=== PATIENT | male | born 1945 | race African-American/Black ===

== ENCOUNTER 2016-12-06 12:32 | Inpatient (IN) | payer MEDICARE, MEDICAID ==
[~2016-12-06] VITALS: Ht 188 cm; Wt 59.8 kg
[~2016-12-06 12:32] MED LIST: 1-ME1LIQ PO; ALUM5LIQ PO; BISA10SU8 PR; CIPR500T4 PO; FERR324T4 PO; FLEEENE3 PR; GABA300 PO; GLUC1VIA2 IM; HYDR-3129 PO; LISI20 PO; LOPE2TAB3 PO; MAGN30S PO; MAPA325T6 PO; METF500 PO; MULT-34 PO; NORV10TA PO; NOVOLOGMXP SQ; SENN8.6T8 PO; [UNRECOGNIZED DRUG - CODE] PO
[2016-12-06 12:34] VITALS: BP 109/60; PULSE 102; RESP 17; TEMP 97.7; O2SAT 99
[2016-12-06] MEDS ORDERED: CLINDAMYCIN INJ 300 MG in SODIUM CHLORIDE 0.9% INJ 25 ML IV ONE (13:15)
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
[2016-12-06 13:54] LABS: AUTOMATED NEUTROPHIL # 11.8 TH/MM3 (1.8-7.7); BASOPHIL % 0.2 % (0.0-2.0); EOSINOPHIL % 0.3 % (0.0-4.0); HEMATOCRIT 28.7 % (39.0-51.0); LYMPH % 8.6 % (9.0-44.0); LYMPHOCYTE # 1.2 TH/MM3 (1.0-4.8); MEAN CELL VOLUME 89.8 FL (80.0-100.0); MEAN CORPUSCULAR HEMOGLOBIN 28.5 PG (27.0-34.0); MEAN CORPUSCULAR HGB CONC 31.8 % (32.0-36.0); MONO % 4.5 % (0.0-8.0); NEUT % 86.4 % (16.0-70.0); PLATELET COUNT 289 TH/MM3 (150-450); RED CELL DISTRIBUTION WIDTH 17.1 % (11.6-17.2); WHITE BLOOD COUNT 13.7 TH/MM3 (4.0-11.0)
[2016-12-06 13:55] LABS: HEMO FLAGS AUTO DIFF
[2016-12-06] MEDS ORDERED: CLINDAMYCIN 300 MG/NS 100 ML IV ONE ×2 (14:00)
[2016-12-06 14:01] LABS: APTT (PATIENT) 32.4 SEC (24.3-30.1); PROTHROMBIN TIME - PATIENT 10.8 SEC (9.8-11.6)
[2016-12-06 14:14] LABS: BICARBONATE 25.4 MEQ/L (21.0-32.0); MAGNESIUM 2.2 MG/DL (1.5-2.5); POTASSIUM 3.3 MEQ/L (3.5-5.1)
[2016-12-06 14:28] LABS: BANDS 24 % (0-6); METAMYELOCYTES 1 % (0-1); NEUTROPHIL # MANUAL DIFF 12.2 TH/MM3 (1.8-7.7); PLATELET ESTIMATE SMEAR NORMAL (NORMAL); PLATELET MORPHOLOGY NORMAL (NORMAL); POLYS (SEG NEUTROPHILS) 64 % (16-70); SCAN/DIFF FINAL DIFF MANUAL; WBC DIFF SAMPLE 100
[2016-12-06 15:45] VITALS: BP 148/70; PULSE 80; RESP 16; O2SAT 99
--- NOTE | 2016-12-06 16:05 | RADRPT ---
EXAM DATE/TIME: 12/06/2016 15:33 [facility] COMPARISON: No previous studies available for comparison. INDICATIONS : Lower leg pain. MEDICAL HISTORY : Osteomyelitis. SURGICAL HISTORY : Amputation to lower right leg. ENCOUNTER: Initial ACUITY: 1 day PAIN SCORE: 0/10 LOCATION: Left foot FINDINGS: Three view examination of the left foot demonstrates no soft tissue swelling, dislocation, or fractur e. The tarsal bones appear intact. The interphalangeal and metatarsophalangeal joints are intact. The calcaneus is intact. Bony mineralization is normal. CONCLUSION: 1. No acute findings. 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 Leo Warner MD on December 06, 2016 at 15:54 Board Certified Radiologist. This report was verified electronically.
--- NOTE | 2016-12-06 16:08 | RADRPT ---
EXAM DATE/TIME: 12/06/2016 15:35 [facility] COMPARISON: No previous studies available for comparison. INDICATIONS : Lower leg pain. MEDICAL HISTORY : None. SURGICAL HISTORY : None. ENCOUNTER: Initial ACUITY: 1 day PAIN SCORE: 0/10 LOCATION: Left leg FINDINGS: Two view examination of the left tibia demonstrates no evidence of fracture or dislocation. Bony min eralization is normal. Hypertrophic bony changes noted around the posterior knee at the distal femur and proximal fibula. Vascular calcifications in the popliteal artery. CONCLUSION: 1. No acute bony abnormalities. Hypertrophic bony changes around the posterior femur and proximal fib jesi possibly related to remote trauma. Vascular calcifications in the popliteal artery. Leo Warner MD on December 06, 2016 at 16:04 Board Certified Radiologist. This report was verified electronically.
[2016-12-06] MEDS ORDERED: ONDANSETRON HCL 4 MG/2 ML VIAL IVP PRN (16:15)
[2016-12-06] MEDS ORDERED: SODIUM CHLORIDE 0.9% FLUSH 10 ML FLUSH IV FLUSH PRN (16:15)
[2016-12-06] MEDS ORDERED: Vancomycin Consult Pharmacy 1 EA OTHER SCH (16:15)
[2016-12-06] MEDS ORDERED: DEXTROSE 50% IN WATER 50 ML VIAL(D50) IV PUSH PRN (16:15)
[2016-12-06] MEDS ORDERED: ACETAMINOPHEN 325 MG TAB PO PRN (16:15)
[2016-12-06] MEDS ORDERED: NALOXONE HCL 0.4 MG/ML AMP IV PRN (16:15)
[2016-12-06] MEDS ORDERED: GLUCAGON 1 MG/ML VIAL OTHER PRN (16:15)
[2016-12-06] MEDS: HEPARIN SODIUM - SQ 10,000 UNITS/ML VIAL SQ SCH (17:00)
[2016-12-06] MEDS: VANCOMYCIN INJ 1,500 MG in SODIUM CHLORID 0.9% 500 ML INJ 500 ML IV SCH (17:07)
[2016-12-06 17:20] VITALS: BP 143/70; PULSE 86; RESP 18; TEMP 97.6; O2SAT 99
[2016-12-06 17:31] VITALS: PULSE 83
[2016-12-06] MEDS: CLINDAMYCIN INJ 300 MG in SODIUM CHLORIDE 0.9% INJ 100 ML IV SCH ×2 (18:00→23:33)
--- NOTE | 2016-12-06 18:46 | HHI.HP ---
HPI [facility] Primary Care Physician Jonathan Loaiza M.D. Admission Diagnosis left foot and leg infected ulcer, diabetes Diagnoses: Travel History International Travel<30 Days: No Contact w/Intl Traveler <30 Da: No Traveled to Known Affected Are: No History of Present Illness This is a 71-year-old male who was brought into the emergency department at [facility] today for 1517 with left foot ulcer. He is status post right above-knee amputation for similar reason. He is a poor historian. He was seen in room D 38 by the undersigned. He was dropped at the emergency department by his caregiver. He recently was discharged from a local intermediate. It is not entirely clear as to why he was brought in particularly today. He is alert and verbal. Mildly confused. He has a stench of necrotic odor coming from His left foot. The foot was examined by the undersigned with the help of a nurse. There is a large round 6 cm foul-smelling full-thickness ulcer over the dorsum of the left foot relatively medially. The foot itself is warm with slow but present capillary refill. 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 Hard of hearing Peripheral neuropathy Diabetes Peripheral vascular disease seizure disorder, last seizure 15 years ago Hypertension COPD acid reflux Pancreatitis Anxiety Tobacco abuse Alcohol Rectal abscess Past Surgical History Right above-knee amputation Bilateral lower extremity surgery Reported Medications Reported Meds & Active Scripts Active Active Prescriptions or Reported Medications Unobtainable Allergies: Coded Allergies: No Known Allergies (Verified , 12/06/16) Family History Reviewed but not contributory Social History Tobacco abuse, half pack of cigarettes a day, drinks alcohol however the amount is unclear Physical Exam Vital Signs Vital Signs Date Time Temp Pulse Resp B/P Pulse Ox O2 Delivery O2 Flow Rate FiO2 12/06/16 15:45 80 16 148/70 99 Room Air 12/06/16 12:34 97.7 102 17 109/60 99 Physical Exam GENERAL: This is a well-nourished, well-developed patient, in no apparent distress. SKIN: No rashes, ecchymoses or lesions. Cool and dry. HEAD: Atraumatic. Normocephalic. No temporal or scalp tenderness. EYES: Bilateral cataracts, Extraocular motions intact. ENT: Nose without bleeding, purulent drainage or septal hematoma. Throat without erythema, tonsillar hypertrophy or exudate. Uvula midline. Airway patent. NECK: Trachea midline. No JVD or lymphadenopathy. Supple, nontender, no meningeal signs. CARDIOVASCULAR: Regular rate and rhythm without murmurs, gallops, or rubs. RESPIRATORY: Bilateral occasional crackles GASTROINTESTINAL: Abdomen soft, non-tender, nondistended. No hepato-splenomegaly , or palpable masses. No guarding. MUSCULOSKELETAL: Status post right above-knee amputation, the stump looks healthy. There is a large round 6 cm foul-smelling full-thickness ulcer over the dorsum of the left foot relatively medially. The foot itself is warm with slow but present capillary refill. No palpable pulses available in the left foot including pedal pulse and posterior tibial pulse NEUROLOGICAL: Awake and alert. No facial weakness. Normal speech. Laboratory Laboratory Tests Test 12/06/16 13:30 White Blood Count 13.7 Red Blood Count 3.20 Hemoglobin 9.1 Hematocrit 28.7 Mean Corpuscular Volume 89.8 Mean Corpuscular Hemoglobin 28.5 Mean Corpuscular Hemoglobin 31.8 Concent Red Cell Distribution Width 17.1 Platelet Count 289 Mean Platelet Volume 10.4 Neutrophils (%) (Auto) 86.4 Lymphocytes (%) (Auto) 8.6 Monocytes (%) (Auto) 4.5 Eosinophils (%) (Auto) 0.3 Basophils (%) (Auto) 0.2 Neutrophils # (Auto) 11.8 Lymphocytes # (Auto) 1.2 Monocytes # (Auto) 0.6 Eosinophils # (Auto) 0.0 Basophils # (Auto) 0.0 CBC Comment AUTO DIFF Differential Total Cells 100 Counted Neutrophils % (Manual) 64 Band Neutrophils % 24 Lymphocytes % 9 Monocytes % 2 Neutrophils # (Manual) 12.2 Metamyelocytes 1 Differential Comment FINAL DIFF MANUAL Platelet Estimate NORMAL Platelet Morphology Comment NORMAL Red Cell Morphology Comment Prothrombin Time 10.8 Prothromb Time International 1.0 Ratio Activated Partial 32.4 Thromboplast Time Sodium Level 136 Potassium Level 3.3 Chloride Level 101 Carbon Dioxide Level 25.4 Anion Gap 10 Blood Urea Nitrogen 14 Creatinine 0.97 Estimat Glomerular Filtration 92 Rate Random Glucose 111 Calcium Level 9.2 Magnesium Level 2.2 C-Reactive Protein 29.50 Date/Time Procedure Status Source Growth 12/06/16 13:30 Gram Stain - Final Resulted Wound Foot 12/06/16 13:30 Wound Culture Resulted Wound Foot Pending 12/06/16 13:30 Aerobic Blood Culture Received Blood Peripheral Pending 12/06/16 13:30 Anaerobic Blood Culture Received Blood Peripheral Pending Result Diagram: 12/06/16 1330 12/06/16 1330 Assessment and Plan Assessment and Plan Assessment Foul-smelling left lower extremity/left foot 6 cm round ulcer Smaller ulcer over the anterior aspect of the left wu Leukocytosis Anemia Hypokalemia Peripheral arterial disease Diabetes Tobacco abuse Management Admit to [facility] Start vancomycin Clindamycin Received 1 dose of clindamycin in the emergency department Pain control Diabetes control Consult infectious disease Consult podiatry May need evaluation by vascular surgeon as well DVT prophylaxis with low-dose heparin Discussed with emergency physician Discussed with patient Discussed with nurse 45 minutes Kim Noe MD Dec 06, 2016 18:46
--- NOTE | 2016-12-06 19:06 | MB ---
cc: JAYJAY ESPARZA MD DATE OF CONSULTATION 12/06/[address] Noe REASON FOR CONSULTATION Diabetic foot infection. HISTORY OF PRESENT ILLNESS This is a 71-year-old black male who was brought into the emergency department because of a wound of his left foot. The patient was brought in by his family caregiver. The patient is legally blind. He is unable to give any meaningful information. The caregiver did not await the patient to be seen in the emergency department and left and therefore we were unable to get any information regarding his condition. The patient tells me that he has had problems with his left foot for approximately 7 months and that his niece's daughter has been taken care of it. He denies fever, chills, nausea or vomiting. He is afebrile. His white blood cell count is elevated and he has left shift. Culture of the wound was taken and is pending. Gram stain showed rare gram-positive cocci in pairs. The patient tells me that he feels hungry. He is pleasant and he is in no acute distress. PAST MEDICAL HISTORY Diabetes mellitus type 2, hypertension, glaucoma, legal blindness, peptic ulcer disease, chronic renal insufficiency, peripheral vascular disease and history of right AKA. ALLERGIES No known drug allergies. MEDICATIONS 1. Vancomycin. 2. Clindamycin. 3. Potassium. SOCIAL HISTORY The patient reportedly smokes cigarettes, half-a-pack a day. Occasional alcohol. No illicit drugs. FAMILY HISTORY Noncontributory. Patient is cared for by his niece's daughter. REVIEW OF SYSTEMS GENERAL: No fever, chills. HEAD, EARS AND EYES, NOSE AND THROAT: No difficulty swallowing or soreness of the throat. The patient is really blind. No pain of the neck or swelling. CARDIOVASCULAR: Denies chest pain. RESPIRATORY: Denies shortness of breath or cough. GASTROINTESTINAL: Denies nausea, vomiting, abdominal pain or diarrhea. GENITOURINARY: Denies urgency, frequency or dysuria. ENDOCRINE: Denies polydipsia or polyuria. HEMATOPOIETIC: Denies easy bruising. No bleeding. MUSCULOSKELETAL: Significant for pain in the left foot and arthritis pains. PSYCHIATRIC: No mood changes or depression. PHYSICAL EXAMINATION GENERAL: This is a pleasant male who is well-nourished and in no acute distress. VITAL SIGNS: Temperature 97.8, BP 148/70, respirations 16, heart rate 80. HEENT: Head atraumatic. Extraocular movements grossly intact. No icterus. Oropharynx moist mucosa. No lesions. NECK: Supple. No adenopathy or swelling. LUNGS: Clear to auscultation with diminished sounds. HEART: Regular S1-S2. No audible murmurs. ABDOMEN: Bowel sounds present, soft, no tenderness appreciated. RECTAL: Not performed. EXTREMITIES: The left foot has an ulceration at the anterior portion of the ankle and the distal tibia which is a more longitudinal extending from the distal tibia and to the dorsum of the foot. There is an open ulceration at the dorsum of the foot with greenish sloth and foul odor. There is slight serous drainage on the dressing. The area at the distal tibia has a shiny area of the skin and pale discoloration but there is no ulceration at that location. The skin of the foot has scaly appearance and is dry. SKIN: No diffuse rash. NEURO: Nonfocal. PSYCHIATRIC: The patient is calm and pleasant and cooperative. LABORATORY DATA WBC 13.7, 24% bands, platelets 289, hemoglobin 9.1, creatinine 0.97, BUN 14, estimated GFR 92. IMPRESSION 1. Diabetic foot infection with ulceration at the left foot. 2. Leukocytosis secondary to infection. Wound culture pending. RECOMMENDATIONS 1. Discontinue vancomycin. 2. Continue clindamycin. 3. Monitor the wound culture. 4. Antibiotic adjustments depending on the culture results. Thank you for this consultation. The patient's progress will be monitored and further recommendations will be given on followup. Jayjay Espraza MD FD/ADELSO /6:30 PM /6:45 PM YANELIS
[2016-12-06 20:00] VITALS: BP 146/67; PULSE 95; RESP 18; TEMP 97.9; O2SAT 100
[2016-12-06] MEDS: SODIUM CHLORIDE 0.9% FLUSH 10 ML FLUSH IV FLUSH SCH (21:00)
[2016-12-06] MEDS: INSULIN ASPART SUPPLEMENTAL SCALE SQ SCH (21:00)
[2016-12-06] MEDS: POTASSIUM CHLORIDE 10 MEQ CONTROLLED RELEASE TAB PO SCH (21:00)
[2016-12-06 23:30] VITALS: PULSE 90
[2016-12-07] VITALS: BP 119/59; PULSE 82; RESP 16; TEMP 98; O2SAT 99
[2016-12-07 04:00] VITALS: BP 119/59; PULSE 83; RESP 17; TEMP 98; O2SAT 100
[2016-12-07] MEDS: HEPARIN SODIUM - SQ 10,000 UNITS/ML VIAL SQ SCH ×2 (05:00→17:00)
[2016-12-07] MEDS: CLINDAMYCIN INJ 300 MG in SODIUM CHLORIDE 0.9% INJ 100 ML IV SCH ×4 (06:00→23:38)
[2016-12-07] MEDS: INSULIN ASPART SUPPLEMENTAL SCALE SQ SCH ×4 (06:11→21:20)
[2016-12-07 07:13] LABS: AUTOMATED NEUTROPHIL # 9.5 TH/MM3 (1.8-7.7); BASOPHIL % 0.4 % (0.0-2.0); EOSINOPHIL % 0.2 % (0.0-4.0); HEMATOCRIT 27.7 % (39.0-51.0); HEMO FLAGS DIFF FINAL; LYMPH % 8.4 % (9.0-44.0); LYMPHOCYTE # 0.9 TH/MM3 (1.0-4.8); MEAN CELL VOLUME 89.1 FL (80.0-100.0); MEAN CORPUSCULAR HEMOGLOBIN 28.1 PG (27.0-34.0); MEAN CORPUSCULAR HGB CONC 31.5 % (32.0-36.0); MONO % 4.9 % (0.0-8.0); NEUT % 86.1 % (16.0-70.0); PLATELET COUNT 257 TH/MM3 (150-450); RED BLOOD COUNT 3.11 MIL/MM3 (4.50-5.90); RED CELL DISTRIBUTION WIDTH 16.9 % (11.6-17.2)
[2016-12-07 07:29] LABS: BICARBONATE 24.6 MEQ/L (21.0-32.0); POTASSIUM 3.5 MEQ/L (3.5-5.1)
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
[2016-12-07 08:04] VITALS: BP 146/72; PULSE 89; RESP 18; TEMP 97.4; O2SAT 100
[2016-12-07] MEDS: SODIUM CHLORIDE 0.9% FLUSH 10 ML FLUSH IV FLUSH SCH ×2 (09:00→21:20)
[2016-12-07] MEDS: POTASSIUM CHLORIDE 10 MEQ CONTROLLED RELEASE TAB PO SCH ×2 (09:00→21:20)
--- NOTE | 2016-12-07 11:37 | RADRPT ---
EXAM DATE/TIME: 12/07/2016 00:00 [facility] COMPARISON: No previous studies available for comparison. INDICATIONS : Left foot and leg infection, ulcer/Right AKA TECHNIQUE: Four-cuff ankle and brachial pressures were obtained. Pulse cuff waveform tracings of the ankles were recorded, and ankle-brachial indices were calculated. PRESSURES (mmHg): Brachial (arm): Left 141 Ankle: Left 73 JESSIE: Left 0.52 CONCLUSION: There is vascular occlusive disease to a moderate degree could be further characterized with CT angio graphy and runoffif indicated clinically. [place]ia Meza MD on December 07, 2016 at 11:34 Board Certified Radiologist. This report was verified electronically.
[2016-12-07] MEDS: ACETAMINOPHEN/HYDROcodone 325 MG/5 MG TAB PO PRN ×2 (12:30→18:36)
[2016-12-07] MEDS ORDERED: IOHEXOL 350 MG/ML 10 ML VIAL (for RAD DIAG) IV ONE (14:39)
--- NOTE | 2016-12-07 15:30 | EKG ---
Date Performed: 12/06/2016 Time Performed: 13:13:35 PTAGE: 71 years EKG: Sinus rhythm Left axis deviation. POSSIBLE MYOCARDIAL INFARCTION-INDETERMINATE AGE Nonspecific T wave change. Low limb lead voltage. When compared to previous tracing, T wave changes Anteroseptally are new. ABNORMA L ECG PREVIOUS TRACING : 08/26/2015 18.54 DOCTOR: Kenny Hawthorne Interpretating Date/Time 12/07/2016 15:28:27
[2016-12-07 16:00] VITALS: BP 177/82; PULSE 90; RESP 24; TEMP 97.7; O2SAT 100
[2016-12-07] MEDS: VANCOMYCIN INJ 1,500 MG in SODIUM CHLORID 0.9% 500 ML INJ 500 ML IV SCH (17:00)
[2016-12-07 18:02] VITALS: PULSE 90
--- NOTE | 2016-12-07 18:11 | HHI.PR ---
Subjective Interval History alert, confused, c/o LLE pain, cannot get comfortable Review of Systems Constitutional Constitutional Remarks As above, 10 systems reviewed and otherwise negative but not reliable Vitals/Results Intake & Output 12/06/16 12/06/16 12/07/16 15:00 23:00 07:00 Intake Total 120 ml Balance 120 ml Intake Oral 120 ml # Voids 1 4 Vital Signs Vital Signs Date Time Temp Pulse Resp B/P Pulse Ox O2 Delivery O2 Flow Rate FiO2 12/07/16 18:02 90 12/07/16 16:00 97.7 90 24 177/82 100 12/07/16 08:04 97.4 89 18 146/72 100 12/07/16 04:00 98.0 83 17 119/59 100 12/07/16 00:00 98.0 82 16 119/59 99 12/06/16 23:30 90 12/06/16 20:00 97.9 95 18 146/67 100 CBC/BMP: 12/07/16 0630 12/07/16 0630 Lab Results Laboratory Tests Test 12/07/16 06:30 White Blood Count 11.0 TH/MM3 Red Blood Count 3.11 MIL/MM3 Hemoglobin 8.7 GM/DL Hematocrit 27.7 % Mean Corpuscular Volume 89.1 FL Mean Corpuscular Hemoglobin 28.1 PG Mean Corpuscular Hemoglobin 31.5 % Concent Red Cell Distribution Width 16.9 % Platelet Count 257 TH/MM3 Mean Platelet Volume 10.2 FL Neutrophils (%) (Auto) 86.1 % Lymphocytes (%) (Auto) 8.4 % Monocytes (%) (Auto) 4.9 % Eosinophils (%) (Auto) 0.2 % Basophils (%) (Auto) 0.4 % Neutrophils # (Auto) 9.5 TH/MM3 Lymphocytes # (Auto) 0.9 TH/MM3 Monocytes # (Auto) 0.5 TH/MM3 Eosinophils # (Auto) 0.0 TH/MM3 Basophils # (Auto) 0.0 TH/MM3 CBC Comment DIFF FINAL Differential Comment Sodium Level 137 MEQ/L Potassium Level 3.5 MEQ/L Chloride Level 103 MEQ/L Carbon Dioxide Level 24.6 MEQ/L Anion Gap 9 MEQ/L Blood Urea Nitrogen 10 MG/DL Creatinine 0.72 MG/DL Estimat Glomerular Filtration 130 ML/MIN Rate Random Glucose 106 MG/DL Calcium Level 9.0 MG/DL Physical Exam General General Appearance: Well Developed, Anxious Eyes Eye Exam: Sclera White Ears & Nose Ears & Nose Exam: Nasal Mucosa [place] Throat Throat Exam: Oral Mucosa [place] & Moist Neck Neck Exam: Trachea Midline Pulmonary Resp Exam: Breath Sounds Equal Cardiology CV Exam: Normal Sinus Rhythm Gastrointestinal/Abdomen GI Exam: Non-Tender, Bowel Sounds Present Musculoskeletal MS Remarks Right above-knee amputation Left lower extremity with an ulcer on the dorsum of the left foot also smaller ulcer on the anterior left chin Integumentary Skin Exam: Warm Neurologic Neuro Exam: Awake Neuro Remarks cONFUSED VTE Prophylaxis VTE Prophylaxis Meds: Heparin Assessment/Plan Assessment/Plan Assessment Foul-smelling left lower extremity/left foot 6 cm round ulcer Smaller ulcer over the anterior aspect of the left wu Leukocytosis Anemia Hypokalemia Peripheral arterial disease Diabetes Tobacco abuse Management Clindamycin intravenously Wound care Pain control Diabetes control infectious disease and podiatry following MRI and CT angiogram with runoff ordered May need evaluation by vascular surgeon as well DVT prophylaxis with low-dose heparin Discussed with patient Discussed with nurse 45 minutes Discussed Condition with: Patient Kim Noe MD Dec 07, 2016 18:11
[2016-12-07 20:00] VITALS: BP 132/71; PULSE 93; RESP 24; TEMP 97.4; O2SAT 99
[2016-12-07] MEDS ORDERED: LORazepam 2 MG/ML VIAL IV PRN (20:45)
[2016-12-08] VITALS: BP 133/74; PULSE 87; RESP 18; TEMP 98.8; O2SAT 100
[2016-12-08 04:00] VITALS: BP 151/89; PULSE 97; RESP 20; TEMP 98.4; O2SAT 100
[2016-12-08] MEDS: HEPARIN SODIUM - SQ 10,000 UNITS/ML VIAL SQ SCH ×2 (05:39→16:59)
[2016-12-08] MEDS: CLINDAMYCIN INJ 300 MG in SODIUM CHLORIDE 0.9% INJ 100 ML IV SCH ×4 (05:40→23:22)
[2016-12-08] MEDS: INSULIN ASPART SUPPLEMENTAL SCALE SQ SCH ×4 (05:41→20:57)
[2016-12-08 08:00] VITALS: BP 140/65; PULSE 91; RESP 20; TEMP 98.6; O2SAT 100
[2016-12-08] MEDS: POTASSIUM CHLORIDE 10 MEQ CONTROLLED RELEASE TAB PO SCH ×2 (09:19→20:55)
[2016-12-08] MEDS: SODIUM CHLORIDE 0.9% FLUSH 10 ML FLUSH IV FLUSH SCH ×2 (09:23→20:56)
--- NOTE | 2016-12-08 09:34 | RADRPT ---
EXAM DATE/TIME: 12/07/2016 14:24 [facility] COMPARISON: CTA RUNOFF W 3D RECON, November 09, 2014, 9:13. INDICATIONS : Left foot and leg ulcers. IV CONTRAST: 100 cc Omnipaque 350 (iohexol) IV RADIATION DOSE: 2.11 CTDIvol (mGy) MEDICAL HISTORY : Diabetes mellitus type 2. Hypertension. Cardiovascular disease SURGICAL HISTORY : Right above-knee amputation. ENCOUNTER: Initial ACUITY: 1 week PAIN SCALE: 6/10 LOCATION: Left lower extremity. TECHNIQUE: Volumetric scanning was performed using a multi-row detector CT scanner. The data was post processed with a variety of visualization algorithms including full volume maximum intensity projection, multi -planar sliding thin slab reformation, curved planar reformation, and surface rendering techniques. Using automated exposure control and adjustment of the mA and/or kV according to patient size, radiat ion dose was kept as low as reasonably achievable to obtain optimal diagnostic quality images. FINDINGS: Severe calcific atherosclerotic vascular disease remains evident. There is eccentric calcified plaque of the infrarenal abdominal aorta without evidence of aneurysmal enlargement or significant stenosis. Celiac and superior mesenteric artery to be widely patent. Mild stenosis is seen at the origin of the right renal artery. There is moderate stenosis at the orig in the left renal artery measuring 50-60%. Calcified and noncalcified plaque is present throughout the right iliac system. There is evidence of moderate stenosis involving the external iliac artery. The external and common femoral artery provide flow to the profunda femoris. The mentasta right SFA is completely occluded. Patient is status post ab [id number] amputation. Calcified plaque is present throughout the left iliac system. There is no evidence of focal stenosis. The left SFA is patent however high grade stenotic lesions are seen at its origin in its midsection a nd at the adductor canal. Severe steno-occlusive disease is identified in the left popliteal artery. Calcified plaque is causin g segmental stenosis followed by a short segmental occlusion. 2 vessel runoff to the calf is identifi ed below the occlusion. Nonvascular findings include enlarging pancreatic cysts and cholelithiasis. There are 2 large simple appearing cyst in the tail of pancreas measuring 5.9 and 4.5 cm in size. CONCLUSION: Severe atherosclerotic vascular disease. Hemodynamically significant steno-occlusive lesions are noted in the right iliac, left femoral, left popliteal and left infrapopliteal vessels as described. Status post [id number] amputation right lower extremity. Nonvascular findings include enlarging pancreatic cysts and cholelithiasis. Watson Hyde MD on December 08, 2016 at 8:23 Board Certified Radiologist. This report was verified electronically.
[2016-12-08] MEDS ORDERED: GADODIAMIDE PF 287 MG/ML 5 ML VIAL (for RAD MRI) IV ONE (11:42)
[2016-12-08 12:00] VITALS: BP 173/86; PULSE 104; RESP 20; TEMP 97.7; O2SAT 100
[2016-12-08] MEDS: ACETAMINOPHEN/HYDROcodone 325 MG/5 MG TAB PO PRN ×2 (12:36→17:00)
--- NOTE | 2016-12-08 13:05 | RADRPT ---
EXAM DATE/TIME: 12/08/2016 10:49 [facility] COMPARISON: FOOT LEFT COMPLETE ([id number]), December 06, 2016, 15:33. INDICATIONS : Osteomyelitis. Left hind foot infection. CONTRAST: 12 cc Omniscan (gadodiamide) IV MEDICAL HISTORY : Diabetes mellitus type 2. Neuropathy. SURGICAL HISTORY : Right above knee amputation. ENCOUNTER: Initial ACUITY: 1 day PAIN SCORE: 0/10 LOCATION: Left foot. TECHNIQUE: Multiplanar, multisequence MRI examination was performed without contrast and after the intravenous a dministration of gadolinium. FINDINGS: There is subcutaneous edema with some thickening of the skin at the level of the medial talonavi cular joint. The marrow appears intact without evidence for osteomyelitis. The visualized muscular an d tendinous structures appear intact. CONCLUSION: There is subcutaneous edema may be focal ulceration as above without signs of osteomyelitis. [place] Meza MD on December 08, 2016 at 12:48 Board Certified Radiologist. This report was verified electronically.
--- NOTE | 2016-12-08 15:27 | HHI.IDPN ---
Note Infectious Disease Note Patient says he feels okay. Says he has pain in the left foot off and on. Afebrile. No other complaints. Wound culture has group D enterococcus. PAST MEDICAL HISTORY Diabetes mellitus type 2, hypertension, glaucoma, legal blindness, peptic ulcer disease, chronic renal insufficiency, peripheral vascular disease and history of right AKA. ALLERGIES No known drug allergies. MEDICATIONS Current Medications Medications (Trade) Dose Ordered Sig/Guevara Route PRN Reason Start Time Stop Time Status Last Admin Dose Admin Sodium Chloride (NS Flush) 2 ml UNSCH PRN IV FLUSH FLUSH AFTER USING IV ACCESS 12/06/16 16:15 Sodium Chloride (NS Flush) 2 ml BID IV FLUSH 12/06/16 21:00 12/08/16 09:23 Acetaminophen (Tylenol) 650 mg Q4H PRN PO TEMP > 100.4 12/06/16 16:15 12/07/16 08:00 Ondansetron HCl (Zofran Inj) 4 mg Q6H PRN IVP NAUSEA OR VOMITING 12/06/16 16:15 Heparin Sodium (Porcine) (Heparin Inj) 5,000 units Q12H SQ 12/06/16 17:00 12/08/16 05:39 Naloxone HCl 0.4 mg 0.4 mg UNSCH PRN IV SEE LABEL COMMENTS 12/06/16 16:15 Clindamycin Phosphate/Sodium Chloride (Cleocin Inj/NS Inj) 102 ml @ 204 mls/hr Q6HR IV 12/06/16 18:00 12/08/16 12:25 Dextrose (D50w (Vial) Inj) 25 ml UNSCH PRN IV PUSH HYPOGLYCEMIA-SEE COMMENTS 12/06/16 16:15 Glucagon (Glucagon Inj) 1 mg UNSCH PRN OTHER HYPOGLYCEMIA-SEE COMMENTS 12/06/16 16:15 Acetaminophen/ Hydrocodone Bitart (Elton 5-325 Mg) 1 tab Q4H PRN PO PAIN SCALE 3 TO 10 12/06/16 16:15 12/08/16 12:36 Potassium Chloride (KCl) 30 meq Q12HR PO 12/06/16 21:00 12/08/16 09:19 Miscellaneous Information SPECIFIC LAB TO BE SHANNAN... ONCE ONCE .XX 12/09/16 16:45 12/09/16 16:46 SOCIAL HISTORY The patient reportedly smokes cigarettes, half-a-pack a day. Occasional alcohol. No illicit drugs. FAMILY HISTORY Noncontributory. Patient is cared for by his niece's daughter. OBJECTIVE: Vital Signs Date Time Temp Pulse Resp B/P Pulse Ox O2 Delivery O2 Flow Rate FiO2 12/08/16 12:00 97.7 104 20 173/86 100 12/08/16 08:00 98.6 91 20 140/65 100 12/08/16 04:00 98.4 97 20 151/89 100 12/08/16 00:00 98.8 87 18 133/74 100 12/07/16 20:00 97.4 93 24 132/71 99 12/07/16 18:02 90 12/07/16 16:00 97.7 90 24 177/82 100 12/07/16 12/07/16 12/08/16 15:00 23:00 07:00 Intake Total 867 ml 324 ml Balance 867 ml 324 ml Intake Oral 240 ml 120 ml IV Total 627 ml 204 ml # Voids 2 3 # Bowel Movements 0 0 Laboratory Tests Test 12/07/16 06:30 White Blood Count 11.0 TH/MM3 Red Blood Count 3.11 MIL/MM3 Hemoglobin 8.7 GM/DL Hematocrit 27.7 % Mean Corpuscular Volume 89.1 FL Mean Corpuscular Hemoglobin 28.1 PG Mean Corpuscular Hemoglobin 31.5 % Concent Red Cell Distribution Width 16.9 % Platelet Count 257 TH/MM3 Mean Platelet Volume 10.2 FL Neutrophils (%) (Auto) 86.1 % Lymphocytes (%) (Auto) 8.4 % Monocytes (%) (Auto) 4.9 % Eosinophils (%) (Auto) 0.2 % Basophils (%) (Auto) 0.4 % Neutrophils # (Auto) 9.5 TH/MM3 Lymphocytes # (Auto) 0.9 TH/MM3 Monocytes # (Auto) 0.5 TH/MM3 Eosinophils # (Auto) 0.0 TH/MM3 Basophils # (Auto) 0.0 TH/MM3 CBC Comment DIFF FINAL Differential Comment Laboratory Tests Test 12/07/16 06:30 Sodium Level 137 MEQ/L Potassium Level 3.5 MEQ/L Chloride Level 103 MEQ/L Carbon Dioxide Level 24.6 MEQ/L Anion Gap 9 MEQ/L Blood Urea Nitrogen 10 MG/DL Creatinine 0.72 MG/DL Estimat Glomerular Filtration 130 ML/MIN Rate Random Glucose 106 MG/DL Calcium Level 9.0 MG/DL Microbiology Date/Time Procedure Status Source Growth 12/06/16 13:25 Aerobic Blood Culture - Preliminary Resulted Blood Peripheral NO GROWTH IN 2 DAYS 12/06/16 13:25 Anaerobic Blood Culture - Preliminary Resulted Blood Peripheral NO GROWTH IN 2 DAYS 12/06/16 13:30 Aerobic Blood Culture - Preliminary Resulted Blood Peripheral NO GROWTH IN 2 DAYS 12/06/16 13:30 Anaerobic Blood Culture - Preliminary Resulted Blood Peripheral NO GROWTH IN 2 DAYS 12/06/16 13:30 Gram Stain - Final Resulted Wound Foot 12/06/16 13:30 Wound Culture - Preliminary Resulted Group D Enterococcus PHYSICAL EXAMINATION GENERAL: No acute distress. HEENT: No icterus. Oropharynx moist mucosa. No lesions. NECK: Supple. No adenopathy or swelling. LUNGS: Clear to auscultation. HEART: Regular S1-S2. No audible murmurs. ABDOMEN: Bowel sounds present, soft, no tenderness. EXTREMITIES: The left foot has an ulceration at the anterior portion of the ankle and the distal tibia which is a more longitudinal extending from the distal tibia and up to the dorsum of the foot. There is an open ulceration at the dorsum of the foot with greenish sloth and foul odor. SKIN: No diffuse rash. NEURO: Nonfocal. PSYCHIATRIC: Calm and pleasant and cooperative. IMPRESSION Diabetic foot infection with ulceration at the left foot. Non healing. Group D enterococcus preliminary. Wound culture pending. RECOMMENDATIONS Change Clindamycin to Unasyn. Debridement per podiatry. Josafat Whaley MD Dec 08, 2016 15:27
--- NOTE | 2016-12-08 15:35 | HHI.PR ---
Subjective Subjective Remarks pt. refused MRI yesterday, just got back today, had to have Ativan awake, oriented x 2 ROS limited no pain when asked no fever Review of Systems Constitutional Constitutional Remarks 12 point ROS limited Vitals/Results Intake & Output 12/07/16 12/07/16 12/08/16 15:00 23:00 07:00 Intake Total 867 ml 324 ml Balance 867 ml 324 ml Intake Oral 240 ml 120 ml IV Total 627 ml 204 ml # Voids 2 3 # Bowel Movements 0 0 Vital Signs Vital Signs Date Time Temp Pulse Resp B/P Pulse Ox O2 Delivery O2 Flow Rate FiO2 12/08/16 12:00 97.7 104 20 173/86 100 12/08/16 08:00 98.6 91 20 140/65 100 12/08/16 04:00 98.4 97 20 151/89 100 12/08/16 00:00 98.8 87 18 133/74 100 12/07/16 20:00 97.4 93 24 132/71 99 12/07/16 18:02 90 12/07/16 16:00 97.7 90 24 177/82 100 CBC/BMP: 12/07/16 0630 12/07/16 0630 Physical Exam General General Appearance: Well Developed, No Acute Distress, Anxious Eyes Eye Exam: Pupils Equal, Pupils Reactive, Sclera White Ears & Nose Ears & Nose Exam: Nasal Mucosa [place] Throat Throat Exam: Oral Mucosa [place] & Moist Neck Neck Exam: Trachea Midline Pulmonary Resp Exam: Breath Sounds Equal Cardiology CV Exam: Normal Sinus Rhythm Gastrointestinal/Abdomen GI Exam: Soft, Non-Tender, Bowel Sounds Present, Non-Distended Musculoskeletal MS Remarks Right AKA Integumentary Skin Exam: Warm, Lesion(s) Skin Remarks LEFT FOOT ULCER Extremeties Extremities Exam: Moderate Edema Neurologic Neuro Exam: Awake, Speech Clear, [place] Equal VTE Prophylaxis VTE Prophylaxis Meds: Heparin Assessment/Plan Assessment/Plan Assessment Foul-smelling left lower extremity/left foot 6 cm round ulcer Smaller ulcer over the anterior aspect of the left wu Leukocytosis Anemia Hypokalemia Peripheral arterial disease Diabetes Tobacco abuse Management Continue with Clindamycin intravenously Wound care follow cultures group D enterococcus Pain control Appreciate podiatry input Wound debrided at bedside per podiatry, wound care orders with betadine wet to dry applied and post op shoe ordered WBAT CTA runoff ordered, results noted. Vascular surgery consult pending Right foot MRI -no osteomyelitis ID has been consulted, pending Accu-Cheks before meals and at bedtime with insulin therapy as needed Continue the home meds Anemia, follow H&H closely DVT prophylaxis with low-dose heparin Discussed with Dr. Noe Discussed with patient Discussed with nurse This patient was seen by myself and Dr. Noe, this note is written on his behalf Lorrie Melton Dec 08, 2016 15:35
[2016-12-08 16:00] VITALS: BP 143/73; PULSE 99; RESP 20; TEMP 97.3; O2SAT 100
--- NOTE | 2016-12-08 18:10 | PD.CAR.PN ---
CVT Progress Note Subjective/Hospital Course: Referral received Full consultation and dictation to follow Sarahi Guardado Objective: Vital Signs Date Time Temp Pulse Resp B/P Pulse Ox O2 Delivery O2 Flow Rate FiO2 12/08/16 16:00 97.3 99 20 143/73 100 12/08/16 12:00 97.7 104 20 173/86 100 12/08/16 08:00 98.6 91 20 140/65 100 12/08/16 04:00 98.4 97 20 151/89 100 12/08/16 00:00 98.8 87 18 133/74 100 12/07/16 20:00 97.4 93 24 132/71 99 Result Diagram: 12/07/16 0630 12/07/16 0630 Russ May MD Dec 08, 2016 18:10
[2016-12-08 20:00] VITALS: BP 154/92; PULSE 96; RESP 18; TEMP 97.9; O2SAT 100
[2016-12-09] VITALS: BP 156/82; PULSE 97; RESP 18; TEMP 98.1; O2SAT 99
[2016-12-09 04:00] VITALS: BP 164/92; PULSE 101; RESP 18; TEMP 97.6; O2SAT 96
[2016-12-09] MEDS: CLINDAMYCIN INJ 300 MG in SODIUM CHLORIDE 0.9% INJ 100 ML IV SCH ×2 (05:24→12:13)
[2016-12-09] MEDS: INSULIN ASPART SUPPLEMENTAL SCALE SQ SCH ×4 (05:24→20:45)
[2016-12-09] MEDS: HEPARIN SODIUM - SQ 10,000 UNITS/ML VIAL SQ SCH ×2 (05:24→16:35)
[2016-12-09 08:00] VITALS: BP 131/74; PULSE 99; RESP 18; TEMP 97.5; O2SAT 99
[2016-12-09] MEDS: POTASSIUM CHLORIDE 10 MEQ CONTROLLED RELEASE TAB PO SCH ×2 (08:18→20:44)
[2016-12-09] MEDS: SODIUM CHLORIDE 0.9% FLUSH 10 ML FLUSH IV FLUSH SCH ×2 (08:19→20:47)
[2016-12-09] MEDS: ACETAMINOPHEN/HYDROcodone 325 MG/5 MG TAB PO PRN ×3 (08:19→20:49)
[2016-12-09 08:30] LABS: HEMATOCRIT 33.6 % (39.0-51.0); MEAN CELL VOLUME 90.6 FL (80.0-100.0); MEAN CORPUSCULAR HEMOGLOBIN 28.4 PG (27.0-34.0); MEAN CORPUSCULAR HGB CONC 31.4 % (32.0-36.0); PLATELET COUNT 253 TH/MM3 (150-450); RED BLOOD COUNT 3.71 MIL/MM3 (4.50-5.90); RED CELL DISTRIBUTION WIDTH 17.3 % (11.6-17.2); WHITE BLOOD COUNT 13.4 TH/MM3 (4.0-11.0)
[2016-12-09 08:36] LABS: REVIEW FLAG FINAL
--- NOTE | 2016-12-09 10:54 | HHI.PR ---
Subjective Subjective Remarks Patient alert, H0H Responds to verbal stimuli with simple commands and answers Poor historian Restless in bed at times Afebrile (Caitlin Francis) Review of Systems Constitutional Constitutional: Fatigue, Weakness Constitutional Remarks 10 point ROS done positives noted mild anxiety thrashing around in bed at times , poor historian, left foot wound infection,, leukocytosis reoccurring, anemia, status post debridement per podiatry, mucoid stools, questionable acute on chronic, other systems unremarkable (Caitlin Francis) GI/Abdomen GI/Abdominal Exam: Positive Bowel Movement (clear mucoid incontinent stools, questionable acute or chronic in nature) (Caitlin Francis) Genitourinary Remarks Incontinent (Caitlin Francis) Musculoskeletal MS: Weakness, Discomfort/Pain (left foot, secured with dressing clean dry and intact, special shoe on) (Caitlin Francis) Integumentary Skin: Wounds (left foot, status post debridement, wound infection) (Caitlin Francis) Psychiatric Psychiatric: Normal Mood, Anxiety (in bed thrashing around) (Caitlin Francis) Vitals/Results Intake & Output 12/08/16 12/08/16 12/09/16 15:00 23:00 07:00 Intake Total 344 ml 240 ml 202 ml Balance 344 ml 240 ml 202 ml Intake Oral 240 ml 240 ml 100 ml IV Total 104 ml 102 ml # Voids 3 2 2 # Bowel Movements 2 0 0 Vital Signs Vital Signs Date Time Temp Pulse Resp B/P Pulse Ox O2 Delivery O2 Flow Rate FiO2 12/09/16 08:00 97.5 99 18 131/74 99 12/09/16 04:00 97.6 101 18 164/92 96 12/09/16 00:00 98.1 97 18 156/82 99 12/08/16 20:00 97.9 96 18 154/92 100 12/08/16 16:00 97.3 99 20 143/73 100 12/08/16 12:00 97.7 104 20 173/86 100 (Caitlin Francis) CBC/BMP: 12/09/16 0700 12/07/16 0630 Lab Results Laboratory Tests Test 12/09/16 07:00 White Blood Count 13.4 TH/MM3 Red Blood Count 3.71 MIL/MM3 Hemoglobin 10.5 GM/DL Hematocrit 33.6 % Mean Corpuscular Volume 90.6 FL Mean Corpuscular Hemoglobin 28.4 PG Mean Corpuscular Hemoglobin 31.4 % Concent Red Cell Distribution Width 17.3 % Platelet Count 253 TH/MM3 Mean Platelet Volume 9.6 FL Imaging Remarks Last Impressions Foot MRI 12/08/16 0000 Signed Impressions: Service Date/Time: Thursday, December 08, 2016 10:49 - CONCLUSION: There is subcutaneous edema may be focal ulceration as above without signs of osteomyelitis. [place] Meza MD Aorta w/Runoff CTA 12/07/16 0000 Signed Impressions: Service Date/Time: Wednesday, December 07, 2016 14:24 - CONCLUSION: Severe atherosclerotic vascular disease. Hemodynamically significant steno-occlusive lesions are noted in the right iliac, left femoral, left popliteal and left infrapopliteal vessels as described. Status post [id number] amputation right lower extremity. Nonvascular findings include enlarging pancreatic cysts and cholelithiasis. Watson Hyde MD Tibia/Fibula X-Ray 12/06/16 0000 Signed Impressions: Service Date/Time: Tuesday, December 06, 2016 15:35 - CONCLUSION: 1. No acute bony abnormalities. Hypertrophic bony changes around the posterior femur and proximal fibula possibly related to remote trauma. Vascular calcifications in the popliteal artery. Leo Warner MD Foot X-Ray 12/06/16 0000 Signed Impressions: Service Date/Time: Tuesday, December 06, 2016 15:33 - CONCLUSION: 1. No acute findings. 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 Leo Warner MD Current Medications Active Medications Gadodiamide (Omniscan Pf Inj) 12 ml STK-MED ONCE IV Last administered on t 11:42; Admin Dose 12 ML; Start 12/08/16 at 11:42; Stop 12/08/16 at 11:43; Status DC Miscellaneous Information SPECIFIC LAB TO BE SHANNAN... ONCE ONCE .XX; Start at 16:45; Stop 12/09/16 at 16:46; Status Cancel ([place],Caitlin M. ANIMAL ECOLOGIST) Physical Exam General General Appearance: Well Developed, No Acute Distress, Anxious ([place],Caitlin M. ANIMAL ECOLOGIST) Eyes Eye Exam: Pupils Equal, Pupils Reactive, Sclera White (Caitlin Francis M. ANIMAL ECOLOGIST) Ears & Nose Ears & Nose Exam: Nasal Mucosa [place] ([place]Ryann alfordan M. ANIMAL ECOLOGIST) Throat Throat Exam: Oral Mucosa [place] & Moist (Tito,Caitlin M. ANIMAL ECOLOGIST) Neck Neck Exam: Trachea Midline (Tito,Susan M. ANIMAL ECOLOGIST) Pulmonary Resp Exam: Breath Sounds Equal (Tito,Caitlin M. ANIMAL ECOLOGIST) Cardiology CV Exam: Normal Sinus Rhythm (Tito,Caitlin M. ANIMAL ECOLOGIST) Gastrointestinal/Abdomen GI Exam: Soft, Non-Tender, Bowel Sounds Present, Non-Distended ([place],Caitlin M. ANIMAL ECOLOGIST) Musculoskeletal MS Exam: Joints Intact MS Remarks Left foot wound infection, dressing secure, open shoe on ([place]Caitlin alford M. ANIMAL ECOLOGIST) Integumentary Skin Exam: Warm, Lesion(s) (TitoCaitlin alford M. ANIMAL ECOLOGIST) Extremeties Extremities Exam: Trace Edema, Moderate Edema ([place],Caitlin M. ANIMAL ECOLOGIST) Neurologic Neuro Exam: Awake, Speech Clear, Magazine Publisher Equal ([place],Caitlin M. ANIMAL ECOLOGIST) VTE Prophylaxis VTE Prophylaxis Meds: Heparin ([place],Susan M. ANIMAL ECOLOGIST) Assessment/Plan Assessment/Plan Assessment left lower extremity/left foot 6 cm round ulcer, infection Smaller ulcer over the anterior aspect of the left wu Leukocytosis, resolved, now returned Anemia Hypokalemia Peripheral arterial disease Diabetes Tobacco abuse Management ID consult antibiotics changed to Unasyn, appreciate input Wound care per podiatry, appreciate input follow cultures group D enterococcus Pain control Wound debrided at bedside per podiatry, wound care orders with betadine wet to dry applied and post op shoe ordered WBAT CTA runoff ordered, results noted. Vascular surgery consult Right foot MRI -no osteomyelitis Accu-Cheks before meals and at bedtime with insulin therapy as needed, controlled rate for healing purposes Anemia, follow H&H closely, stable for now, 10.9 Leukocytosis with count increased again at 13.4, antibiotics now Unasyn, will monitor labs DVT prophylaxis with low-dose heparin We'll monitor labs as needed, BMP pending Discussed with Dr. Noe, seen on his behalf Discussed with patient, no family present Discussed with nurse (Caitlin Francis) Assessment/Plan seen, examined by myself, Dr Noe, today Discussed with patient, CTA with runoff results noted, mnx per vascular Unasyn rui bhatia prognosis for LLE. may eventually need an amputation Discussed with mid level provider The exam, history, and the medical decision-making described in the above note were completed with the assistance of the mid-level provider. I reviewed the findings presented. I attest that I had a [id number] encounter with the patient on the same day, and personally performed and documented my assessment and findings in the medical record. (Kim Noe MD) Caitlin Francis Dec 09, 2016 10:54 Kim Noe MD Dec 09, 2016 16:06
[2016-12-09 11:55] LABS: BICARBONATE 22.5 MEQ/L (21.0-32.0); POTASSIUM 4.8 MEQ/L (3.5-5.1)
[2016-12-09 12:00] VITALS: BP 139/64; PULSE 97; RESP 18; TEMP 98.5; O2SAT 99
[2016-12-09 16:00] VITALS: BP 148/79; PULSE 97; RESP 18; TEMP 97.8; O2SAT 97
[2016-12-09] MEDS: NICOTINE 14 MG/24 HR PATCH T-DERMAL SCH (16:35)
[2016-12-09] MEDS ORDERED: PHARMACY ORDERED LAB ONE (16:45)
--- NOTE | 2016-12-09 16:48 | PD.POD ---
Subjective Podiatric Problems Necrotic L foot wound Past Med/Surg/Social History Social History Smoking Status: Former Smoker Objective Vital Signs Vital Signs Date Time Temp Pulse Resp B/P Pulse Ox O2 Delivery O2 Flow Rate FiO2 12/09/16 12:00 98.5 97 18 139/64 99 12/09/16 08:00 97.5 99 18 131/74 99 12/09/16 04:00 97.6 101 18 164/92 96 12/09/16 00:00 98.1 97 18 156/82 99 12/08/16 20:00 97.9 96 18 154/92 100 Coded Allergies: No Known Allergies (Verified , 12/06/16) Physical Exam Remarks bandage intact L foot/ankle Assessment & Plan A/P Necrotic L foot wound Await vascular plan and recommendations. Continue betadine wet to dry dressing L foot/ankle in meantime. Fish Mcneill DPM Dec 09, 2016 16:48
[2016-12-09] MEDS: AMPICILLIN/SULBAC 3 GM/NS 100 ML IV SCH ×4 (16:55→22:39)
[2016-12-09] MEDS ORDERED: AMPICILLIN-SULBACTAM INJ 3 GM VIAL IV SCH (17:00)
--- NOTE | 2016-12-09 18:04 | PD.CAR.PN ---
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 If we can the improve the healing with some conservative measures with debridement of the foot and such as per Dr. Herndon that will be fine but otherwise the only other option is above-knee amputation. Objective: Vital Signs Date Time Temp Pulse Resp B/P Pulse Ox O2 Delivery O2 Flow Rate FiO2 12/09/16 12:00 98.5 97 18 139/64 99 12/09/16 08:00 97.5 99 18 131/74 99 12/09/16 04:00 97.6 101 18 164/92 96 12/09/16 00:00 98.1 97 18 156/82 99 12/08/16 20:00 97.9 96 18 154/92 100 Labs: Laboratory Tests Test 12/09/16 12/09/16 07:00 11:02 White Blood Count 13.4 TH/MM3 (4.0-11.0) Red Blood Count 3.71 MIL/MM3 (4.50-5.90) Hemoglobin 10.5 GM/DL (13.0-17.0) Hematocrit 33.6 % (39.0-51.0) Mean Corpuscular Volume 90.6 FL (80.0-100.0) Mean Corpuscular Hemoglobin 28.4 PG (27.0-34.0) Mean Corpuscular Hemoglobin 31.4 % Concent (32.0-36.0) Red Cell Distribution Width 17.3 % (11.6-17.2) Platelet Count 253 TH/MM3 (150-450) Mean Platelet Volume 9.6 FL (7.0-11.0) Sodium Level 134 MEQ/L (136-145) Potassium Level 4.8 MEQ/L (3.5-5.1) Chloride Level 101 MEQ/L (98-107) Carbon Dioxide Level 22.5 MEQ/L (21.0-32.0) Anion Gap 11 MEQ/L (5-15) Blood Urea Nitrogen 8 MG/DL (7-18) Creatinine 0.76 MG/DL (0.60-1.30) Estimat Glomerular Filtration 122 ML/MIN Rate (>89) Random Glucose 124 MG/DL (74-106) Calcium Level 9.4 MG/DL (8.5-10.1) Result Diagram: 12/09/16 0700 12/09/16 1102 Russ May MD Dec 09, 2016 18:04
[2016-12-09 20:00] VITALS: BP 147/73; PULSE 92; RESP 18; TEMP 97.2; O2SAT 100
[2016-12-09] MEDS: REMOVE OLD PATCH T-DERMAL SCH (20:46)
--- NOTE | 2016-12-09 22:27 | MB ---
cc: RUSS HAIR MD DATE OF CONSULTATION: 12/09/2016 REASON FOR CONSULTATION: Gangrene of the left foot, contracture of the left leg, peripheral vascular disease, dementia. HISTORY OF PRESENT DISEASE: The patient is a 71 year-old gentleman was brought into the emergency department and dropped off by family. Apparently the patient has had left foot wounds that extended up to the leg which they were taking care of at home. Now the patient is in the hospital and question arises what can be done about it surgically. From the record, I am finding out that he had problems and wounds of the foot for about 6 to 7 months, and now it has gotten so bad that the patient had to be admitted. PAST MEDICAL HISTORY: 1. Diabetes mellitus. 2. Hypertension. 3. Peptic ulcer disease. 4. Chronic renal insufficiency. 5. Peripheral vascular disease resulting in right above knee amputation in the past. ALLERGIES: None known. MEDICATIONS: Can be found in the record. SOCIAL HISTORY: The patient apparently smokes half-pack per day and drinks socially. The patient is legally blind. PHYSICAL EXAMINATION: Reveals an unfortunate 71 year-old gentleman appearing older than his actual age. HEENT: Normocephalic, no trauma to the head. Pupils are equal and nonreactive. The patient has glaucoma. Extraocular muscles. The patient is moving eyes but this cannot be tested in the face of near total blindness. CHEST: Bilateral breath sounds, decreased over both lung perla, consistent with COPD. HEART: Regular rhythm. The patient is in sinus rhythm. ABDOMEN: Soft, active bowel sounds. No rebound, no guarding, no masses. EXTREMITIES: The patient has right above-knee amputation. On the left side the patient is contracted in the hip toward the abdomen and the knee, flexed. Patient is unable to extend the leg. On the foot he has ulcerations which extends from the dorsum of the foot to the ankle and up the tibia. There is open ulceration present at the ankle that is draining. There are no dopplerable pulses in the left foot present. IMPRESSION AND RECOMMENDATION: I have reviewed laboratory and diagnostic procedures. This unfortunate gentleman comes in with infection of the foot and gangrene. CTA with runoff reveals severe peripheral vascular disease and foot MRI on the left side reveals subcutaneous edema but not osteomyelitis. At this point there is no vascular construction that can be performed in this gentleman because it is simply contracted in the hip and in the knee. This is a non-reconstructable situation and the patient obviously has been bedridden for a long time. The only option is to do nothing or to do above-knee amputation on this gentleman. To revascularize the patient who is bedridden with contractures is inappropriate and not within standard of care. Therefore, if we can heal this with some local wound care and improve the healing that would be okay, but revascularization here would not be an option. I will continue to follow the patient with you. Thank you very much for referral. Critical care time: 40 minutes. Russ CHASE /5:59 PM /9:23 PM
[2016-12-10] VITALS: BP 129/71; PULSE 87; RESP 16; TEMP 97.6; O2SAT 99
[2016-12-10 04:30] VITALS: BP 139/73; PULSE 85; RESP 18; TEMP 97.6; O2SAT 100
[2016-12-10] MEDS: AMPICILLIN/SULBAC 3 GM/NS 100 ML IV SCH ×6 (05:38→17:22)
[2016-12-10] MEDS: HEPARIN SODIUM - SQ 10,000 UNITS/ML VIAL SQ SCH ×2 (05:40→17:22)
[2016-12-10] MEDS: ACETAMINOPHEN/HYDROcodone 325 MG/5 MG TAB PO PRN ×3 (05:45→17:23)
[2016-12-10] MEDS: INSULIN ASPART SUPPLEMENTAL SCALE SQ SCH ×4 (07:00→20:36)
[2016-12-10 08:00] VITALS: BP 126/69; PULSE 86; RESP 18; TEMP 98.6; O2SAT 100
[2016-12-10] MEDS: SODIUM CHLORIDE 0.9% FLUSH 10 ML FLUSH IV FLUSH SCH ×2 (09:00→20:35)
[2016-12-10] MEDS ORDERED: REMOVE OLD PATCH T-DERMAL SCH (09:00)
[2016-12-10] MEDS: NICOTINE 14 MG/24 HR PATCH T-DERMAL SCH (09:46)
[2016-12-10] MEDS: POTASSIUM CHLORIDE 10 MEQ CONTROLLED RELEASE TAB PO SCH ×2 (09:46→20:34)
--- NOTE | 2016-12-10 10:20 | HHI.PR ---
Subjective Subjective Remarks Patient alert, H0H Responds to verbal stimuli with simple commands and answers Poor historian Restless in bed at times Afebrile Review of Systems Constitutional Constitutional: Fatigue, Weakness Constitutional Remarks 10 point ROS done positives noted mild anxiety thrashing around in bed at times , poor historian, left foot wound infection,, leukocytosis reoccurring, anemia, status post debridement per podiatry, mucoid stools, questionable acute on chronic, other systems unremarkable GI/Abdomen GI/Abdominal Exam: Positive Bowel Movement (clear mucoid incontinent stools, questionable acute or chronic in nature) Genitourinary Remarks Incontinent Musculoskeletal MS: Weakness, Discomfort/Pain (left foot, secured with dressing clean dry and intact, special shoe on) Integumentary Skin: Wounds (left foot, status post debridement, wound infection) Psychiatric Psychiatric: Normal Mood, Anxiety (in bed thrashing around) Vitals/Results Intake & Output 12/09/16 12/09/16 12/10/16 15:00 23:00 07:00 Intake Total 224 ml Balance 224 ml Intake Oral 120 ml IV Total 104 ml # Voids 3 2 # Bowel Movements 1 Vital Signs Vital Signs Date Time Temp Pulse Resp B/P Pulse Ox O2 Delivery O2 Flow Rate FiO2 12/10/16 08:00 98.6 86 18 126/69 100 12/10/16 04:30 97.6 85 18 139/73 100 12/10/16 00:00 97.6 87 16 129/71 99 12/09/16 21:49 18 12/09/16 20:00 97.2 92 18 147/73 100 12/09/16 16:00 97.8 97 18 148/79 97 12/09/16 12:00 98.5 97 18 139/64 99 CBC/BMP: 12/09/16 0700 12/09/16 1102 Lab Results Laboratory Tests Test 12/09/16 11:02 Sodium Level 134 MEQ/L Potassium Level 4.8 MEQ/L Chloride Level 101 MEQ/L Carbon Dioxide Level 22.5 MEQ/L Anion Gap 11 MEQ/L Blood Urea Nitrogen 8 MG/DL Creatinine 0.76 MG/DL Estimat Glomerular Filtration 122 ML/MIN Rate Random Glucose 124 MG/DL Calcium Level 9.4 MG/DL Imaging Remarks Last Impressions Foot MRI 12/08/16 0000 Signed Impressions: Service Date/Time: Thursday, December 08, 2016 10:49 - CONCLUSION: There is subcutaneous edema may be focal ulceration as above without signs of osteomyelitis. [place] Meza MD Aorta w/Runoff CTA 12/07/16 0000 Signed Impressions: Service Date/Time: Wednesday, December 07, 2016 14:24 - CONCLUSION: Severe atherosclerotic vascular disease. Hemodynamically significant steno-occlusive lesions are noted in the right iliac, left femoral, left popliteal and left infrapopliteal vessels as described. Status post [id number] amputation right lower extremity. Nonvascular findings include enlarging pancreatic cysts and cholelithiasis. Watson Hyde MD Tibia/Fibula X-Ray 12/06/16 0000 Signed Impressions: Service Date/Time: Tuesday, December 06, 2016 15:35 - CONCLUSION: 1. No acute bony abnormalities. Hypertrophic bony changes around the posterior femur and proximal fibula possibly related to remote trauma. Vascular calcifications in the popliteal artery. Leo Warner MD Foot X-Ray 12/06/16 0000 Signed Impressions: Service Date/Time: Tuesday, December 06, 2016 15:33 - CONCLUSION: 1. No acute findings. 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 Leo Warner MD Current Medications Active Medications Ampicillin Sodium/ Sulbactam Sodium (Unasyn Inj) 3 gm Q6H IV; Start 12/09/16 at 17:00; Stop 12/09/16 at 17:00; Status DC Ampicillin Sodium/ Sulbactam Sodium/ Sodium Chloride (Unasyn Inj/NS Inj) 100 ml @ 200 mls/hr Q6H IV Last administered on 12/10/16 05:38; Admin Dose 200 MLS/HR ; Start 12/09/16 at 17:00 Miscellaneous Information 1 DAILY T-DERMAL; Start 12/10/16 at 09:00; Stop at 09:00; Status DC Miscellaneous Information SPECIFIC LAB TO BE SHANNAN... ONCE ONCE .XX; Start at 16:45; Stop 12/09/16 at 16:46; Status Cancel Miscellaneous Information 1 1 HS T-DERMAL Last administered on 12/09/16 20:46; Admin Dose 1; Start 12/09/16 at 21:00 Nicotine (Habitrol 14 Mg Patch.24 Hr) 1 patch DAILY T-DERMAL Last administered on 12/10/16t 09:46; Admin Dose 1 PATCH; Start 12/09/16 at 16:15 Physical Exam General General Appearance: Well Developed, No Acute Distress, Anxious Eyes Eye Exam: Pupils Equal, Pupils Reactive, Sclera White Ears & Nose Ears & Nose Exam: Nasal Mucosa [place] Throat Throat Exam: Oral Mucosa [place] & Moist Neck Neck Exam: Trachea Midline Pulmonary Resp Exam: Breath Sounds Equal Cardiology CV Exam: Normal Sinus Rhythm Gastrointestinal/Abdomen GI Exam: Soft, Non-Tender, Bowel Sounds Present, Non-Distended Musculoskeletal MS Exam: Joints Intact MS Remarks Left foot wound infection, dressing secure, open shoe on Integumentary Skin Exam: Warm, Lesion(s) Extremeties Extremities Exam: Trace Edema, Moderate Edema Neurologic Neuro Exam: Awake, Speech Clear, Chief Medical Officer Equal VTE Prophylaxis VTE Prophylaxis Meds: Heparin Assessment/Plan Assessment/Plan Necrotic foot wound ID consult antibiotics changed to Unasyn, appreciate input Wound care per podiatry, appreciate input follow cultures group D enterococcus Pain control Wound debrided at bedside per podiatry, wound care orders with betadine wet to dry applied and post op shoe ordered WBAT CTA runoff ordered, results noted. Vascular surgery consult, appreciate recommendations. Patient is very adamant about no amputation, and wants wound care and medical management as long as he can. For now conservative treatment. Right foot MRI -no osteomyelitis Accu-Cheks before meals and at bedtime with insulin therapy as needed, controlled rate for healing purposes Vital signs reviewed, currently afebrile, normal ranges No new labs today, will review as needed DVT prophylaxis with low-dose heparin Discussed with Dr. Noe, seen on his behalf Discussed with patient, no family present Discussed with Caitlin Sierra Dec 10, 2016 10:20
[2016-12-10 12:00] VITALS: BP 127/69; PULSE 94; RESP 18; TEMP 97.6; O2SAT 100
--- NOTE | 2016-12-10 12:28 | PD.POD ---
Subjective Podiatric Problems Necrotic L foot wound Past Med/Surg/Social History Social History Smoking Status: Former Smoker Objective Vital Signs Vital Signs Date Time Temp Pulse Resp B/P Pulse Ox O2 Delivery O2 Flow Rate FiO2 12/10/16 08:00 98.6 86 18 126/69 100 12/10/16 04:30 97.6 85 18 139/73 100 12/10/16 00:00 97.6 87 16 129/71 99 12/09/16 21:49 18 12/09/16 20:00 97.2 92 18 147/73 100 12/09/16 16:00 97.8 97 18 148/79 97 Coded Allergies: No Known Allergies (Verified , 12/06/16) Physical Exam Remarks unchanged Assessment & Plan A/P Necrotic L foot wound Agree with vascular plan and recommendations. Agree that AKA is inevitable now vs later. Wound healing will not occur. Continue betadine wet to dry dressing L foot/ankle to maintain stability of the wounds unless patient decides to move forward with AKA or it becomes life over limb situation. Fish Mcneill DPM Dec 10, 2016 12:28
[2016-12-10 16:00] VITALS: BP 149/74; PULSE 94; RESP 18; TEMP 97.4; O2SAT 100
[2016-12-10 20:00] VITALS: BP 148/81; PULSE 91; RESP 20; TEMP 97.3; O2SAT 100
[2016-12-10] MEDS: REMOVE OLD PATCH T-DERMAL SCH (20:36)
[2016-12-11] VITALS: BP 166/84; PULSE 92; RESP 18; TEMP 97.4; O2SAT 100
[2016-12-11] MEDS: AMPICILLIN/SULBAC 3 GM/NS 100 ML IV SCH ×10 (01:00→23:26)
[2016-12-11] MEDS: ACETAMINOPHEN/HYDROcodone 325 MG/5 MG TAB PO PRN ×4 (01:00→20:24)
[2016-12-11 04:00] VITALS: BP 132/72; PULSE 88; RESP 16; TEMP 98; O2SAT 100
[2016-12-11] MEDS: HEPARIN SODIUM - SQ 10,000 UNITS/ML VIAL SQ SCH ×2 (05:22→16:15)
[2016-12-11] MEDS: INSULIN ASPART SUPPLEMENTAL SCALE SQ SCH ×4 (06:29→20:29)
[2016-12-11] MEDS: SODIUM CHLORIDE 0.9% FLUSH 10 ML FLUSH IV FLUSH SCH ×2 (08:05→20:25)
[2016-12-11] MEDS: POTASSIUM CHLORIDE 10 MEQ CONTROLLED RELEASE TAB PO SCH ×2 (08:06→20:25)
[2016-12-11] MEDS: NICOTINE 14 MG/24 HR PATCH T-DERMAL SCH (08:08)
[2016-12-11 08:21] VITALS: BP 139/69; PULSE 86; RESP 21; TEMP 98; O2SAT 99
--- NOTE | 2016-12-11 10:30 | HHI.PR ---
Subjective Subjective Remarks awake, oriented x 2 "all you want to do is cut me up" explained that he needs amputation or at risk for sepsis, poss. . states " I have to sometime" no fever left ankle tender to palpation Review of Systems Constitutional Constitutional Remarks 12 point ROS limited Musculoskeletal MS: Discomfort/Pain (left foot, secured with dressing clean dry and intact, special shoe on) Vitals/Results Intake & Output 12/10/16 12/10/16 12/11/16 15:00 23:00 07:00 Intake Total 480 ml 100 ml 240 ml Balance 480 ml 100 ml 240 ml Intake Oral 480 ml 100 ml 240 ml # Voids 4 0 1 # Bowel Movements 1 0 0 Vital Signs Vital Signs Date Time Temp Pulse Resp B/P Pulse Ox O2 Delivery O2 Flow Rate FiO2 12/11/16 08:21 98.0 86 21 139/69 99 12/11/16 04:00 98.0 88 16 132/72 100 12/11/16 02:42 18 12/11/16 00:00 97.4 92 18 166/84 100 12/10/16 20:00 97.3 91 20 148/81 100 12/10/16 16:00 97.4 94 18 149/74 100 12/10/16 12:00 97.6 94 18 127/69 100 CBC/BMP: 12/09/16 0700 12/09/16 1102 Physical Exam General General Appearance: Well Developed, No Acute Distress Eyes Eye Exam: Pupils Equal, Pupils Reactive, Sclera White Ears & Nose Ears & Nose Exam: Nasal Mucosa [place] Throat Throat Exam: Oral Mucosa [place] & Moist Neck Neck Exam: Trachea Midline Pulmonary Resp Exam: Breath Sounds Equal Cardiology CV Exam: Normal Sinus Rhythm Gastrointestinal/Abdomen GI Exam: Soft, Non-Tender, Bowel Sounds Present, Non-Distended Musculoskeletal MS Exam: Joints Intact MS Remarks Right AKA Integumentary Skin Exam: Warm, Lesion(s) Skin Remarks LEFT FOOT ULCER Extremeties Extremities Exam: Trace Edema Neurologic Neuro Exam: Alert, Awake, Speech Clear, Fast Food Supervisor Equal VTE Prophylaxis VTE Prophylaxis Meds: Heparin Assessment/Plan Assessment/Plan Assessment Foul-smelling left lower extremity/left foot 6 cm round ulcer Smaller ulcer over the anterior aspect of the left wu Leukocytosis Anemia Hypokalemia Peripheral arterial disease Diabetes Tobacco abuse Management left foot wound, + enterococcus faecalis ID input appreciated, continue Unasyn Right foot MRI -no osteomyelitis Appreciate podiatry input Wound debrided at bedside per podiatry, wound care orders with betadine wet to dry applied and post op shoe ordered WBAT CTA runoff results noted. Vascular surgery input appreciated, recommends AKA. Pt. adamantly refusing. Continue with medical management. Accu-Cheks before meals and at bedtime with insulin therapy as needed Continue the home meds Anemia, follow H&H closely DVT prophylaxis with low-dose heparin spoke to patient's niece, update given. States pt. has lived with her for more than 5 years. She has POA, asked to bring documents from home. pt. refusing surgery, understands this decision can lead to sepsis poss. . She will talk to daughters about surgery. Discussed with Dr. Noe Discussed with patient Discussed with Fariba, cousin. States she has POA and he has lived with her for many years. Pt. has 7 kids, however not involved in his care. Discussed with nurse This patient was seen by myself and Dr. Noe, this note is written on his behalf Lorrie Melton Dec 11, 2016 10:30
[2016-12-11 12:14] VITALS: BP 152/72; PULSE 87; RESP 20; TEMP 97.4; O2SAT 98
--- NOTE | 2016-12-11 12:44 | PD.CAR.PN ---
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 If we can the improve the healing with some conservative measures with debridement of the foot and such as per Dr. Herndon that will be fine but otherwise the only other option is above-knee amputation. 12/11/16 I discussed with the patient the options I'm not sure if he completely understands but there are no viable options at this time other than not doing anything to the left leg or doing left above-knee amputation. Patient this point refuses amputation and states that we just want to cut on him. [place] best medical opinion this is the appropriate way to go but I'm not here to convince the patient into surgeries only to direct what is the most appropriate care and related this to the patient, If patient changes his mind I'll be available Objective: Vital Signs Date Time Temp Pulse Resp B/P Pulse Ox O2 Delivery O2 Flow Rate FiO2 12/11/16 12:14 97.4 87 20 152/72 98 12/11/16 08:21 98.0 86 21 139/69 99 12/11/16 04:00 98.0 88 16 132/72 100 12/11/16 02:42 18 12/11/16 00:00 97.4 92 18 166/84 100 12/10/16 20:00 97.3 91 20 148/81 100 12/10/16 16:00 97.4 94 18 149/74 100 Result Diagram: 12/09/16 0700 12/09/16 1102 Russ May MD Dec 11, 2016 12:44
[2016-12-11 16:05] VITALS: BP 141/73; PULSE 92; RESP 20; TEMP 97.6; O2SAT 100
[2016-12-11 20:00] VITALS: BP 156/82; PULSE 87; RESP 18; TEMP 97.6; O2SAT 100
[2016-12-11] MEDS: REMOVE OLD PATCH T-DERMAL SCH (20:32)
[2016-12-12] VITALS: BP 132/73; PULSE 92; RESP 16; TEMP 97.4; O2SAT 99
[2016-12-12 04:00] VITALS: BP 143/82; PULSE 89; RESP 16; TEMP 97.7; O2SAT 100
[2016-12-12] MEDS: AMPICILLIN/SULBAC 3 GM/NS 100 ML IV SCH ×8 (04:28→23:40)
[2016-12-12] MEDS: HEPARIN SODIUM - SQ 10,000 UNITS/ML VIAL SQ SCH ×2 (04:28→19:08)
[2016-12-12] MEDS: ACETAMINOPHEN/HYDROcodone 325 MG/5 MG TAB PO PRN ×4 (04:31→19:10)
[2016-12-12] MEDS: INSULIN ASPART SUPPLEMENTAL SCALE SQ SCH ×4 (06:38→21:00)
[2016-12-12 08:00] VITALS: BP 143/79; PULSE 16; RESP 16; TEMP 97.3; O2SAT 99
[2016-12-12] MEDS: SODIUM CHLORIDE 0.9% FLUSH 10 ML FLUSH IV FLUSH SCH ×2 (09:00→21:19)
[2016-12-12] MEDS: POTASSIUM CHLORIDE 10 MEQ CONTROLLED RELEASE TAB PO SCH ×2 (09:30→21:19)
[2016-12-12] MEDS: NICOTINE 14 MG/24 HR PATCH T-DERMAL SCH (09:30)
--- NOTE | 2016-12-12 10:43 | PD.CAR.PN ---
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 If we can the improve the healing with some conservative measures with debridement of the foot and such as per Dr. Herndon that will be fine but otherwise the only other option is above-knee amputation. 12/11/16 I discussed with the patient the options I'm not sure if he completely understands but there are no viable options at this time other than not doing anything to the left leg or doing left above-knee amputation. Patient this point refuses amputation and states that we just want to cut on him. [place] best medical opinion this is the appropriate way to go but I'm not here to convince the patient into surgeries only to direct what is the most appropriate care and related this to the patient, If patient changes his mind I'll be available 12/12/16 Medical attending has a discussed issue with patient as well and he at this point agrees to left above-knee amputation Patient is completely contracted unable to extend the knee or the hip and distal foot is involved in dry gangrene Patient is bedridden and above-knee amputation of the only option We'll proceed with the same tomorrow Objective: Vital Signs Date Time Temp Pulse Resp B/P Pulse Ox O2 Delivery O2 Flow Rate FiO2 12/12/16 08:00 97.3 16 16 143/79 99 12/12/16 05:40 16 12/12/16 04:00 97.7 89 16 143/82 100 12/12/16 00:00 97.4 92 16 132/73 99 12/11/16 20:00 97.6 87 18 156/82 100 12/11/16 16:05 97.6 92 20 141/73 100 12/11/16 12:14 97.4 87 20 152/72 98 Result Diagram: 12/09/16 0700 12/09/16 1102 Russ May MD Dec 12, 2016 10:43
--- NOTE | 2016-12-12 11:30 | HHI.PR ---
Subjective Subjective Remarks awake, oriented x [address] Wylie from palliative care this morning understands he has to have surgery -left AKDina states that he prefers to go home to recuperate but would be amenable for rehab if short term he appears more appropriate, smiling asking that we call his niece to notify her of his decision. Review of Systems Constitutional Constitutional Remarks 12 point ROS limited Musculoskeletal MS: Discomfort/Pain (left foot, secured with dressing clean dry and intact, special shoe on) Vitals/Results Intake & Output 12/11/16 12/11/16 12/12/16 15:00 23:00 07:00 Intake Total 360 ml 120 ml 480 ml Balance 360 ml 120 ml 480 ml Intake Oral 360 ml 120 ml 480 ml # Voids 2 1 3 # Bowel Movements 0 0 0 Vital Signs Vital Signs Date Time Temp Pulse Resp B/P Pulse Ox O2 Delivery O2 Flow Rate FiO2 12/12/16 08:00 97.3 16 16 143/79 99 12/12/16 05:40 16 12/12/16 04:00 97.7 89 16 143/82 100 12/12/16 00:00 97.4 92 16 132/73 99 12/11/16 20:00 97.6 87 18 156/82 100 12/11/16 16:05 97.6 92 20 141/73 100 12/11/16 12:14 97.4 87 20 152/72 98 CBC/BMP: 12/09/16 0700 12/09/16 1102 Lab Results Laboratory Tests Test 12/11/16 13:35 Lactic Acid Level 1.2 mmol/L Physical Exam General General Appearance: Well Developed, No Acute Distress Eyes Eye Exam: Pupils Equal, Pupils Reactive, Sclera White Ears & Nose Ears & Nose Exam: Nasal Mucosa [place] Throat Throat Exam: Oral Mucosa [place] & Moist Neck Neck Exam: Trachea Midline Pulmonary Resp Exam: Breath Sounds Equal Cardiology CV Exam: Normal Sinus Rhythm Gastrointestinal/Abdomen GI Exam: Soft, Non-Tender, Bowel Sounds Present, Non-Distended Musculoskeletal MS Exam: Joints Intact MS Remarks Right AKA Integumentary Skin Exam: Warm, Lesion(s) Skin Remarks LEFT FOOT ULCER Extremeties Extremities Exam: Trace Edema Neurologic Neuro Exam: Alert, Awake, Speech Clear, Circular Knife Machine Cutter Equal VTE Prophylaxis VTE Prophylaxis Meds: Heparin Assessment/Plan Assessment/Plan Assessment Foul-smelling left lower extremity/left foot 6 cm round ulcer Smaller ulcer over the anterior aspect of the left wu Leukocytosis Anemia Hypokalemia Peripheral arterial disease Diabetes Tobacco abuse Management left foot wound, + enterococcus faecalis ID input appreciated, continue Unasyn lactic acid normal Right foot MRI -no osteomyelitis Appreciate podiatry input Wound debrided at bedside per podiatry, wound care orders with betadine wet to dry applied and post op shoe ordered WBAT CTA runoff results noted. Vascular surgery input appreciated, recommends AKA agreeable with surgery, D/W Dr. Guardado. He will schedule for tomorrow to OR for Left AKA on 12/13 Accu-Cheks before meals and at bedtime with insulin therapy as needed Continue the home meds Anemia, follow H&H closely DVT prophylaxis with low-dose heparin appreciate palliative care input, D/W Dr. Wylie, pt. concerned about going to alf after surgery. D/W pt. will make arrangements for home with [facility], canelo has a lot of help at home. However, after talking to him, he seems amenable to short term rehab if needed. We will continue to evaluate and discuss with pt and family. Labs in am Discussed with Dr. Noe Discussed with patient Discussed with nurse This patient was seen by myself and Dr. Noe, this note is written on his behalf Lorrie Melton Dec 12, 2016 11:30
--- NOTE | 2016-12-12 11:52 | PD.CONS ---
Consult Service Palliative Care Consult Requested By Juice BALDWIN . Primary Care Physician Jonathan Loaiza M.D. . Reason for Consultation a. To assist with evaluation and management of symptoms including: Pain b. To assist medical decision maker(s) with: better understanding of current medical conditions; weighing benefits/burdens of medical treatment options; making medical treatment decisions. . HPI History of Present Illness This 71-year-old male, with a past history of diabetes, PVD, and cigarette smoking, was brought to the hospital because of wounds and pain involving the left foot. The patient is status post right AKA because of his PVD and infection, and he has now had these wounds on his left foot for some unknown number of months. He gets intermittent sharp pain in the foot, and also has some occasional back pain. He has not been on scheduled pain medicine. Upon presentation to the emergency department on 12/06/16, findings included: * Moderate pain * Temp 97.7, pulse 80, respirations 16, blood pressure 148/70, oxygen saturation 99% on room air * White count 13.7, hemoglobin 9.1 * Sodium 136, creatinine 0.97 The patient was noted to have a significant wound on the left foot, and there appeared to be some necrosis, odor of necrosis, and likely infection, so he was admitted to the hospital, and antibiotics were initiated. CTA aorta with runoff indicated severe occlusive arterial disease, an MRI of the foot revealed the wound but no osteomyelitis. Podiatry saw the patient and debridement was undertaken. Vascular surgery saw the patient. Ultimately, the patient's medicine physician, ore dressing engineer, and vascular surgeon have all recommended AKA as they do not feel the limb is salvageable. Initially, the patient was reluctant to have any more surgery. Palliative Care was consulted to assist with symptom management, and to enter into discussions with the patient and his healthcare surrogate regarding the current problems, the prognosis, and the benefits and burdens of the various treatment options. . Function/Cognitive Trajectory The patient basically lives a bed and wheelchair existence since his right AKA. He is assisted in taking care of himself by his niece Fariba. . Review of Systems Constitutional: DENIES: Fever, Weight loss Endocrine: DENIES: Polyuria Eyes: COMPLAINS OF: Vision loss, DENIES: Eye inflammation Ears, nose, mouth, throat: DENIES: Epistaxis Respiratory: DENIES: Cough, Shortness of breath Cardiovascular: DENIES: Chest pain, Syncope, Dyspnea on Exertion, Lower Extremity Edema Gastrointestinal: DENIES: Bloody stools, Constipation, Diarrhea, Vomiting Genitourinary: DENIES: Hematuria Musculoskeletal: COMPLAINS OF: Back pain (chronic), DENIES: Joint Swelling Integumentary: DENIES: Rash Hematologic/Lymphatics: DENIES: Bruising Immunologic/Allergic: DENIES: Urticaria Neurologic: DENIES: Localized weakness, Seizures Psychiatric: DENIES: Confusion, Hallucinations, Agitation, Suicidal Ideation, Delusions Past Family Social History Coded Allergies: No Known Allergies (Verified , 12/06/16) Past Medical History * Severe peripheral vascular disease * Left foot gangrene, infection * Non-salvageable left foot/leg * Diabetes * Long-term cigarette smoker * Hypertension * GERD * COPD * Blindness * Anemia * Neuropathy * Remote history of alcohol abuse * Anxiety, intermittent * Remote history of seizures . Past Surgical History * Right AKA * Left leg ORIF * Exploratory laparotomy for perforated viscus * Debridement of left foot/ . Reported Medications He has not been on chronic opiates at home . Current Medications Medications (Trade) Dose Ordered Sig/Guevara Route Start Time Stop Time Status Last Admin (NS Flush) 2 ml UNSCH PRN IV FLUSH 12/06/16 16:15 (NS Flush) 2 ml BID IV FLUSH 12/06/16 21:00 12/12/16 09:00 (Tylenol) 650 mg Q4H PRN PO 12/06/16 16:15 12/07/16 08:00 (Zofran Inj) 4 mg Q6H PRN IVP 12/06/16 16:15 (Heparin Inj) 5,000 units Q12H SQ 12/06/16 17:00 12/12/16 04:28 (Narcan Inj) 0.4 mg UNSCH PRN IV 12/06/16 16:15 (D50w (Vial) Inj) 25 ml UNSCH PRN IV PUSH 12/06/16 16:15 (Glucagon Inj) 1 mg UNSCH PRN OTHER 12/06/16 16:15 (Crosby 5-325 Mg) 1 tab Q4H PRN PO 12/06/16 16:15 12/12/16 09:56 (KCl) 30 meq Q12HR PO 12/06/16 21:00 12/12/16 09:30 (Habitrol 14 Mg Patch.24 Hr) 1 patch DAILY T-DERMAL 12/09/16 16:15 12/12/16 09:30 Miscellaneous Information 1 1 HS T-DERMAL 12/09/16 21:00 12/10/16 20:36 (Unasyn Inj/NS Inj) 100 ml @ 200 mls/hr Q6H IV 12/09/16 17:00 12/12/16 04:28 Family History Positive for heart disease, diabetes, and PVD. . Substance Use Tobacco: Long-term cigarette smoker about one pack per day Alcohol: Remote history of alcohol abuse; now just an occasional beer Prescription med abuse: None Illicits: None . Psychosocial History The patient was born and raised in [place], [place], and moved to this area in 2005. Since his amputation a few years ago, he has lived with his niece Fariba Malave. He was once, . He says he has one son and one daughter; he is in contact occasionally with his daughter, but does not communicate with his son and does not know where his son lives. . Spiritual/Cultural Factors The patient identifies with the Methodist tradition, says spirituality is important for him, has no affiliation with a local Methodist tenriism or clergy, and would like to have a visit from the technical information specialist. . Living Will: Never completed Durable Power of Video Clerk: Completed, but not made available Health Care Surrogate(s): His niece, Fariba Malave . Today's verbally stated goals: The patient's main concern is that he does not want to return to the half-way, and he wants to have the amputation if he can subsequently returned to Fariba's home. He understands that he would likely if he does not have the amputation. He wants to continue aggressive care at least through that time. . Family/friends goals: The patient's niece Fariba supports the decisions of the patient. , Ethical and Legal Issues There are no ethical issues that would impact his care or decision-making at this time. Although some prior notes have indicated "confusion", at the time of my exam, the patient is alert and oriented 4, demonstrating an understanding of his current medical problems and good insight into the consequences of his choices with respect to the proposed amputation. He has capacity for decision-making at this time, and he confirms designation of his niece, as healthcare surrogate if he should lose capacity in the future. . Physical Exam Vital Signs Date Time Temp Pulse Resp B/P Pulse Ox O2 Delivery O2 Flow Rate FiO2 12/12/16 08:00 97.3 16 16 143/79 99 12/12/16 05:40 16 12/12/16 04:00 97.7 89 16 143/82 100 12/12/16 00:00 97.4 92 16 132/73 99 12/11/16 20:00 97.6 87 18 156/82 100 12/11/16 16:05 97.6 92 20 141/73 100 12/11/16 12:14 97.4 87 20 152/72 98 12/11/16 12/12/16 19:00 07:00 Intake Total 360 ml 600 ml Balance 360 ml 600 ml Intake Oral 360 ml 600 ml # Voids 2 4 # Bowel Movements 0 0 Exam CONSTITUTIONAL/GENERAL: This is an adequately nourished patient, in no apparent distress. He is essentially blind TUBES/LINES/DRAINS: Peripheral IV, dressing on left foot/ankle SKIN: No jaundice, rashes, or lesions. Ecchymoses on upper extremities. No wounds seen anteriorly. Skin temperature appropriate. Not diaphoretic. HEAD: Atraumatic. Normocephalic. EYES: Blindness. Fundi not examined. ENT: Hearing grossly normal. Nose without bleeding or purulent drainage. Throat without visible erythema, exudates, masses, or lesions. NECK: Trachea midline. Supple, nontender. No palpable thyroid enlargement or nodularity. CARDIOVASCULAR: Regular rate and rhythm without murmurs, gallops, or rubs. No JVD. No Left foot/ankle pulses RESPIRATORY/CHEST: Symmetric, unlabored respirations. Clear to auscultation. Breath sounds equal bilaterally. No wheezes, rales, or rhonchi. GASTROINTESTINAL: Abdomen soft, non-tender, nondistended. No hepato-splenomegaly , or palpable masses. No guarding. Bowel sounds present. GENITOURINARY: Without palpable bladder distension. MUSCULOSKELETAL: S/P Right AKA, well healed. Dressing on wounds of Left foot/ ankle. LYMPHATICS: No palpable cervical or supraclavicular adenopathy. NEUROLOGICAL: Awake and alert. Motor and sensory grossly within normal limits. Follows commands. Cognitively sharp. Moves all extremities. PSYCHIATRIC: No obvious anxiety/depression. no apparent hallucinations or other psychotic thought process. . Diagnostic Tests Laboratory Laboratory Tests Test 12/09/16 12/11/16 11:02 13:35 Sodium Level 134 MEQ/L (136-145) Potassium Level 4.8 MEQ/L (3.5-5.1) Chloride Level 101 MEQ/L (98-107) Carbon Dioxide Level 22.5 MEQ/L (21.0-32.0) Anion Gap 11 MEQ/L (5-15) Blood Urea Nitrogen 8 MG/DL (7-18) Creatinine 0.76 MG/DL (0.60-1.30) Estimat Glomerular Filtration 122 ML/MIN Rate (>89) Random Glucose 124 MG/DL (74-106) Calcium Level 9.4 MG/DL (8.5-10.1) Lactic Acid Level 1.2 mmol/L (0.4-2.0) Result Diagram: 12/09/16 0700 12/09/16 1102 Imaging Last Impressions Foot MRI 12/08/16 0000 Signed Impressions: Service Date/Time: Thursday, December 08, 2016 10:49 - CONCLUSION: There is subcutaneous edema may be focal ulceration as above without signs of osteomyelitis. KDae Meza MD Aorta w/Runoff CTA 12/07/16 0000 Signed Impressions: Service Date/Time: Wednesday, December 07, 2016 14:24 - CONCLUSION: Severe atherosclerotic vascular disease. Hemodynamically significant steno-occlusive lesions are noted in the right iliac, left femoral, left popliteal and left infrapopliteal vessels as described. Status post [id number] amputation right lower extremity. Nonvascular findings include enlarging pancreatic cysts and cholelithiasis. Watson Hyde MD Tibia/Fibula X-Ray 12/06/16 0000 Signed Impressions: Service Date/Time: Tuesday, December 06, 2016 15:35 - CONCLUSION: 1. No acute bony abnormalities. Hypertrophic bony changes around the posterior femur and proximal fibula possibly related to remote trauma. Vascular calcifications in the popliteal artery. Leo Warner MD Foot X-Ray 12/06/16 0000 Signed Impressions: Service Date/Time: Tuesday, December 06, 2016 15:33 - CONCLUSION: 1. No acute findings. 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 Leo Warner MD Procedures Debridement left foot wound, 12/07/16 . Patient/Family Conference Present at Family Conference: Patient's niece Fariba via telephone . Family Conference Time (mins): 20 Family Conference Location: Telephone Issues Discussed: * Palliative care role, purpose, approach * Additional medical, psychosocial, and spiritual history * Patients general health, functional status, and cognitive changes in the months leading up to the current hospitalization * Patient/family understanding of the current medical problems * Patient/family understanding of prognosis * Patients goals of care as best understood from advance directives and/or conversations and/or values * Current medical treatment options and benefits/burdens of those options * Likely scenarios comparing ongoing aggressive care with a transition to comfort measures only * Questions answered to the best of my ability * Palliative care contact information provided The patient's main concern is that he does not want to return to the half-way, and he wants to have the amputation if he can subsequently returned to Fariba's home. He understands that he would likely if he does not have the amputation. He wants to continue aggressive care at least through that time. . Assessment and Plan Disease Oriented Problem List: (1) severe peripheral vascular disease (2) left foot gangrene, infection (3) nonsalvageable left foot/leg (4) diabetes (5) long-term cigarette smoker (6) anxiety, intermittent (7) blindness (8) hypertension (9) GERD (10) COPD (11) remote history of alcohol abuse (12) neuropathy (13) remote history of seizures (14) anemia Symptom Scale: (1) pain 0-10 Scale: 3 (chronic back pain, and pain of ischemia left foot/leg) (2) anxiety 0-10 Scale: 0 Pertinent Non-Medical Issues Psychosocial: , disabled, lives with his niece. A son and a daughter, but he is not close to them. Spiritual: The patient identifies with the Methodist tradition, says spirituality is important for him, has no affiliation with a local Methodist tenriism or clergy, and would like to have a visit from the technical information specialist. Legal: Although some prior notes have indicated "confusion", at the time of my exam, the patient is alert and oriented 4, demonstrating an understanding of his current medical problems and good insight into the consequences of his choices with respect to the amputation. He has capacity for decision-making at this time, and he confirms designation of his niece, as healthcare surrogate if he should lose capacity in the future. Ethical issues impacting care: Important Contacts Niece/HCS: Fariba Malave [phone] . Prognosis The patient has severe PVD, and undoubtedly has some CAD and perhaps cerebrovascular disease, as well as significant complications of diabetes, but he has had no known cardiac or ONLINE BANKING SPECIALIST events so far. He is not terminal at this time, although certainly at risk for cardiac or stroke events. . Code Status: Full Code Plan * FULL CODE * DECISION-MAKING: Although some prior notes have indicated "confusion", at the time of my exam, the patient is alert and oriented 4, demonstrating an understanding of his current medical problems and good insight into the consequences of his choices with respect to the proposed amputation. He has capacity for decision-making at this time, and he confirms designation of his niece, as healthcare surrogate if he should lose capacity in the future. * GOALS: The patient's main concern is that he does not want to return to the half-way, and he wants to have the amputation if he can subsequently returned to Fariba's home. He understands that he would likely if he does not have the amputation. He wants to continue aggressive care at least through that time. * SYMPTOMS: The patient's pain is not severe at this time, and he does not want to be on scheduled opiates. His anxiety is mild and intermittent and does not require intervention at this time. No specific medication recommendations at this time. * Palliative Care will follow the patient intermittently during this hospitalization, and will be available if needed. . Time Spent Total Floor Time (mins): 76 Face to Face Time (mins): 30 >50% Counseling/Coord of Care: Yes (d/w Juice BALDWIN) Thank you for the opportunity to participate in the care of Mr. Bryant. Attestation To help prompt me to consider important information that might be impacting today's encounter and assessment, information from prior notes written by myself or my colleagues may have been "brought forward" into today's note. My signature on this note, however, is an attestation that I personally performed the exam, history, and/or decision-making noted today, and, unless otherwise indicated, the interactions with patient, family, and staff as well as the review of records all occurred today. I also attest that the listed assessment and stated plan reflect my best clinical judgment today based on the combination of historical information, prior notes, and today's exam/ interactions. When time spent is documented, it refers only to time spent today by the signer, or if indicated, combined time spent today by collaborating physician/nurse practitioner. Darlene Wylie MD Dec 12, 2016 11:52
[2016-12-12 12:00] VITALS: BP 119/69; PULSE 90; RESP 16; TEMP 98.1; O2SAT 100
--- NOTE | 2016-12-12 14:35 | HHI.IDPN ---
Note Infectious Disease Note Patient says he feels okay. Says he has pain in the left foot. Asking for pain med. Afebrile. PAST MEDICAL HISTORY Diabetes mellitus type 2, hypertension, glaucoma, legal blindness, peptic ulcer disease, chronic renal insufficiency, peripheral vascular disease and history of right AKA. ALLERGIES No known drug allergies. ANTIBIOTICS: Unasyn. SOCIAL HISTORY The patient reportedly smokes cigarettes, half-a-pack a day. Occasional alcohol. No illicit drugs. FAMILY HISTORY Noncontributory. Patient is cared for by his niece's daughter. OBJECTIVE: Vital Signs Date Time Temp Pulse Resp B/P Pulse Ox O2 Delivery O2 Flow Rate FiO2 12/12/16 12:00 98.1 90 16 119/69 100 12/12/16 08:00 97.3 16 16 143/79 99 12/12/16 05:40 16 12/12/16 04:00 97.7 89 16 143/82 100 12/12/16 00:00 97.4 92 16 132/73 99 12/11/16 20:00 97.6 87 18 156/82 100 12/11/16 16:05 97.6 92 20 141/73 100 12/11/16 12/11/16 12/12/16 15:00 23:00 07:00 Intake Total 360 ml 120 ml 480 ml Balance 360 ml 120 ml 480 ml Intake Oral 360 ml 120 ml 480 ml # Voids 2 1 3 # Bowel Movements 0 0 0 Laboratory Tests Test 12/11/16 13:35 Lactic Acid Level 1.2 mmol/L Microbiology Date/Time Procedure Status Source Growth 12/06/16 13:25 Aerobic Blood Culture - Preliminary Resulted Blood Peripheral NO GROWTH IN 2 DAYS 12/06/16 13:25 Anaerobic Blood Culture - Preliminary Resulted Blood Peripheral NO GROWTH IN 2 DAYS 12/06/16 13:30 Aerobic Blood Culture - Preliminary Resulted Blood Peripheral NO GROWTH IN 2 DAYS 12/06/16 13:30 Anaerobic Blood Culture - Preliminary Resulted Blood Peripheral NO GROWTH IN 2 DAYS 12/06/16 13:30 Gram Stain - Final Resulted Wound Foot 12/06/16 13:30 Wound Culture - Preliminary Resulted Group D Enterococcus PHYSICAL EXAMINATION GENERAL: No acute distress. HEENT: No icterus. NECK: Supple. No adenopathy or swelling. LUNGS: Clear to auscultation. HEART: Regular S1-S2. No audible murmurs. ABDOMEN: Bowel sounds present, soft, no tenderness. EXTREMITIES: The left foot has an ulceration at the anterior portion of the ankle and the distal tibia same. There is an open ulceration at the dorsum of the foot. SKIN: No diffuse rash. NEURO: Nonfocal. PSYCHIATRIC: Calm and pleasant and cooperative. IMPRESSION Diabetic foot infection with ulceration at the left foot. Non healing. Group D enterococcus. Awaiting decision on surgical procedure. RECOMMENDATIONS Continue Unasyn. If surgery is not performed he will need a course of IV antibiotic. If he has surgical amputation he will be given PO antibiotic post op and consideration made to possibly stop antibiotics. Please call ID patient transportation driver this weekend if input needed. Josafat Whaley MD Dec 12, 2016 14:35 Blood Urea Nitrogen 10 MG/DL Creatinine 0.72 MG/DL Estimat Glomerular Filtration 130 ML/MIN Rate Random Glucose 106 MG/DL Calcium Level 9.0 MG/DL Microbiology Date/Time Procedure Status Source Growth 12/06/16 13:25 Aerobic Blood Culture - Preliminary Resulted Blood Peripheral NO GROWTH IN 2 DAYS 12/06/16 13:25 Anaerobic Blood Culture - Preliminary Resulted Blood Peripheral NO GROWTH IN 2 DAYS 12/06/16 13:30 Aerobic Blood Culture - Preliminary Resulted Blood Peripheral NO GROWTH IN 2 DAYS 12/06/16 13:30 Anaerobic Blood Culture - Preliminary Resulted Blood Peripheral NO GROWTH IN 2 DAYS 12/06/16 13:30 Gram Stain - Final Resulted Wound Foot 12/06/16 13:30 Wound Culture - Preliminary Resulted Group D Enterococcus PHYSICAL EXAMINATION GENERAL: No acute distress. HEENT: No icterus. Oropharynx moist mucosa. No lesions. NECK: Supple. No adenopathy or swelling. LUNGS: Clear to auscultation. HEART: Regular S1-S2. No audible murmurs. ABDOMEN: Bowel sounds present, soft, no tenderness. EXTREMITIES: The left foot has an ulceration at the anterior portion of the ankle and the distal tibia which is a more longitudinal extending from the distal tibia and up to the dorsum of the foot. There is an open ulceration at the dorsum of the foot with greenish sloth and foul odor. SKIN: No diffuse rash. NEURO: Nonfocal. PSYCHIATRIC: Calm and pleasant and cooperative. IMPRESSION Diabetic foot infection with ulceration at the left foot. Non healing. Group D enterococcus preliminary. Wound culture pending. RECOMMENDATIONS Change Clindamycin to Unasyn. Debridement per podiatry. Josafat Whaley MD Dec 12, 2016 14:35
[2016-12-12 16:00] VITALS: BP 158/74; PULSE 95; RESP 16; TEMP 97.2; O2SAT 100
--- NOTE | 2016-12-12 17:27 | PD.VS.CON ---
History of Present Illness Chief Complaint: L LE wound Consult Requested by: Dr. May History of Present Illness 71 yo male, bedridden with Michael MARTINEZ who has a L knee contracture and L foot wound. According to the patient he has L foot wound for months and knee contracture for years, which he attributes to arthritis. Past/Family/Social History Past Medical History DM HTN CRI PAD blindness Past Surgical History R AKA Social History smoker Family History lives with his niece Home Medications Unable to Obtain Active Prescriptions or Reported Meds Coded Allergies: No Known Allergies (Verified , 12/06/16) Review of Systems Eyes: COMPLAINS OF: Vision loss Musculoskeletal: COMPLAINS OF: Joint pain, Stiffness, Joint Swelling Neurologic: COMPLAINS OF: Localized weakness Physical Exam Vitals/I&O Date Time Temp Pulse Resp B/P Pulse Ox O2 Delivery O2 Flow Rate FiO2 12/12/16 16:00 97.2 95 16 158/74 100 12/12/16 12:00 98.1 90 16 119/69 100 12/12/16 08:00 97.3 16 16 143/79 99 12/12/16 05:40 16 12/12/16 04:00 97.7 89 16 143/82 100 12/12/16 00:00 97.4 92 16 132/73 99 12/11/16 20:00 97.6 87 18 156/82 100 12/12/16 12/12/16 12/12/16 07:00 15:00 23:00 Intake Total 480 ml 480 ml Output Total 250 ml Balance 480 ml 230 ml Neuro: alert and conversant HEENT: blind but NC Neck: no JVD Heart: reg rate Lungs: nonlabored Extremities: L knee contracture and wound on LEFT foot Laboratory Tests Test 12/12/16 12:20 Blood Type O NEGATIVE Antibody Screen NEGATIVE Assessment and Plan Plan I agree completely with Dr. May that an AKA is the best option for him. More importantly, the patient agrees and understands the plan. Please call me with any questions. Juice Garay MD FACS septic tank service technician [facility] - Heart and Vascular Surgery at [facility] [phone] Juice Garay MD Dec 12, 2016 17:27
[2016-12-12 20:00] VITALS: BP 134/77; PULSE 87; RESP 16; TEMP 97.4; O2SAT 100
[2016-12-12] MEDS: REMOVE OLD PATCH T-DERMAL SCH (21:00)
[2016-12-13] VITALS: BP 131/65; PULSE 97; RESP 18; TEMP 97.1; O2SAT 100
[2016-12-13] MEDS: ACETAMINOPHEN/HYDROcodone 325 MG/5 MG TAB PO PRN ×3 (00:37→18:00)
[2016-12-13 04:00] VITALS: BP 138/72; PULSE 80; RESP 16; TEMP 97.2; O2SAT 100
[2016-12-13] MEDS: AMPICILLIN/SULBAC 3 GM/NS 100 ML IV SCH ×6 (04:51→18:57)
[2016-12-13] MEDS: HEPARIN SODIUM - SQ 10,000 UNITS/ML VIAL SQ SCH (04:58)
[2016-12-13] MEDS: INSULIN ASPART SUPPLEMENTAL SCALE SQ SCH ×4 (06:24→20:21)
[2016-12-13 07:27] LABS: HEMATOCRIT 27.8 % (39.0-51.0); MEAN CELL VOLUME 86.3 FL (80.0-100.0); MEAN CORPUSCULAR HEMOGLOBIN 29.1 PG (27.0-34.0); MEAN CORPUSCULAR HGB CONC 33.7 % (32.0-36.0); PLATELET COUNT 369 TH/MM3 (150-450); RED BLOOD COUNT 3.22 MIL/MM3 (4.50-5.90); RED CELL DISTRIBUTION WIDTH 16.8 % (11.6-17.2); REVIEW FLAG FINAL; WHITE BLOOD COUNT 11.7 TH/MM3 (4.0-11.0)
[2016-12-13 07:59] LABS: BICARBONATE 28.8 MEQ/L (21.0-32.0); POTASSIUM 4.4 MEQ/L (3.5-5.1)
[2016-12-13 08:00] VITALS: BP 150/74; PULSE 97; RESP 21; TEMP 96.9; O2SAT 96
[2016-12-13] MEDS: POTASSIUM CHLORIDE 10 MEQ CONTROLLED RELEASE TAB PO SCH ×2 (09:26→20:30)
[2016-12-13] MEDS: NICOTINE 14 MG/24 HR PATCH T-DERMAL SCH (09:26)
[2016-12-13] MEDS: SODIUM CHLORIDE 0.9% FLUSH 10 ML FLUSH IV FLUSH SCH ×2 (09:30→20:19)
--- NOTE | 2016-12-13 10:18 | HHI.PR ---
Subjective Subjective Remarks Patient dozing, responds to verbal stimuli H0H Poor historian, answers simple questions appropriately No anxiety noted this morning Afebrile (Caitlin Francis) Interval History Case reviewed, discussed with mid level, right above-knee amputation Surgery today (Kim Noe MD) Review of Systems Constitutional Constitutional Remarks 10 point ROS done positives noted mild anxiety at times, poor historian, left foot wound infection,, leukocytosis reoccurring, anemia, mucoid stools, other systems unremarkable (Caitlin Francis) GI/Abdomen GI/Abdomen Remarks Nothing by mouth today (Caitlin Francis) Genitourinary Remarks Incontinent (Caitlin Francis) Musculoskeletal MS: Discomfort/Pain (left foot, secured with dressing clean dry and intact, special shoe on) (Caitlin Francis) Psychiatric Psychiatric: Normal Mood (Caitlin Francis) Vitals/Results Intake & Output 12/12/16 12/12/16 12/13/16 15:00 23:00 07:00 Intake Total 480 ml 0 ml Output Total 250 ml Balance 230 ml 0 ml Intake Oral 480 ml 0 ml Output Urine Total 250 ml # Voids 2 2 # Bowel Movements 0 Vital Signs Vital Signs Date Time Temp Pulse Resp B/P Pulse Ox O2 Delivery O2 Flow Rate FiO2 12/13/16 08:00 96.9 97 21 150/74 96 12/13/16 05:30 16 12/13/16 04:00 97.2 80 16 138/72 100 12/13/16 00:00 97.1 97 18 131/65 100 12/12/16 20:00 97.4 87 16 134/77 100 12/12/16 16:00 97.2 95 16 158/74 100 12/12/16 12:00 98.1 90 16 119/69 100 (Caitlin Francis) CBC/BMP: 12/13/16 0558 12/13/16 0558 Lab Results Laboratory Tests Test 12/12/16 12/13/16 12:20 05:58 Blood Type O NEGATIVE Antibody Screen NEGATIVE White Blood Count 11.7 TH/MM3 Red Blood Count 3.22 MIL/MM3 Hemoglobin 9.4 GM/DL Hematocrit 27.8 % Mean Corpuscular Volume 86.3 FL Mean Corpuscular Hemoglobin 29.1 PG Mean Corpuscular Hemoglobin 33.7 % Concent Red Cell Distribution Width 16.8 % Platelet Count 369 TH/MM3 Mean Platelet Volume 9.9 FL Sodium Level 138 MEQ/L Potassium Level 4.4 MEQ/L Chloride Level 102 MEQ/L Carbon Dioxide Level 28.8 MEQ/L Anion Gap 7 MEQ/L Blood Urea Nitrogen 10 MG/DL Creatinine 0.89 MG/DL Estimat Glomerular Filtration 102 ML/MIN Rate Random Glucose 138 MG/DL Calcium Level 9.0 MG/DL Imaging Remarks Last Impressions Foot MRI 12/08/16 0000 Signed Impressions: Service Date/Time: Thursday, December 08, 2016 10:49 - CONCLUSION: There is subcutaneous edema may be focal ulceration as above without signs of osteomyelitis. [place] Meza MD Aorta w/Runoff CTA 12/07/16 0000 Signed Impressions: Service Date/Time: Wednesday, December 07, 2016 14:24 - CONCLUSION: Severe atherosclerotic vascular disease. Hemodynamically significant steno-occlusive lesions are noted in the right iliac, left femoral, left popliteal and left infrapopliteal vessels as described. Status post [id number] amputation right lower extremity. Nonvascular findings include enlarging pancreatic cysts and cholelithiasis. Watson Hyde MD Tibia/Fibula X-Ray 12/06/16 0000 Signed Impressions: Service Date/Time: Tuesday, December 06, 2016 15:35 - CONCLUSION: 1. No acute bony abnormalities. Hypertrophic bony changes around the posterior femur and proximal fibula possibly related to remote trauma. Vascular calcifications in the popliteal artery. Leo Warner MD Foot X-Ray 12/06/16 0000 Signed Impressions: Service Date/Time: Tuesday, December 06, 2016 15:33 - CONCLUSION: 1. No acute findings. 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 Leo Warner MD Current Medications Administered Medications Medications (Trade) Dose Ordered Sig/Guevara Route PRN Reason Start Time Stop Time Status Last Admin Dose Admin Sodium Chloride (NS Flush) 2 ml BID IV FLUSH 12/06/16 21:00 12/13/16 09:30 Acetaminophen (Tylenol) 650 mg Q4H PRN PO TEMP > 100.4 4/15/17 16:15 12/07/16 08:00 Heparin Sodium (Porcine) (Heparin Inj) 5,000 units Q12H SQ 12/06/16 17:00 12/12/16 19:08 Acetaminophen/ Hydrocodone Bitart ([place] 5-325 Mg) 1 tab Q4H PRN PO PAIN SCALE 3 TO 10 12/06/16 16:15 12/13/16 04:52 Potassium Chloride (KCl) 30 meq Q12HR PO 12/06/16 21:00 12/13/16 09:26 Nicotine (Habitrol 14 Mg Patch.24 Hr) 1 patch DAILY T-DERMAL 12/09/16 16:15 12/13/16 09:26 Miscellaneous Information 1 1 HS T-DERMAL 12/09/16 21:00 12/12/16 21:00 Ampicillin Sodium/ Sulbactam Sodium/ Sodium Chloride (Unasyn Inj/NS Inj) 100 ml @ 200 mls/hr Q6H IV 12/09/16 17:00 12/13/16 04:51 (Caitlin Francis) Physical Exam General General Appearance: Well Developed, No Acute Distress, Pale (mucous membranes) (Caitlin FrancisP) Eyes Eye Exam: Pupils Equal, Pupils Reactive, Sclera White (Caitlin FrancisP) Ears & Nose Ears & Nose Exam: Nasal Mucosa [place] (Caitlin FrancisP) Throat Throat Exam: Oral Mucosa [place] & Moist (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) Neck Neck Exam: Trachea Midline (Caitlin FrancisP) Pulmonary Resp Exam: Breath Sounds Equal (Caitlin FrancisP) Cardiology CV Exam: Normal Sinus Rhythm (Caitlin FrancisP) Gastrointestinal/Abdomen GI Exam: Soft, Non-Tender, Bowel Sounds Present, Non-Distended (Caitlin FrancisP) Musculoskeletal MS Exam: Joints Intact MS Remarks Left foot wound infection, dressing secure, open shoe on (Caitlin FrancisP) Integumentary Skin Exam: Warm, Lesion(s) (Caitlin FrancisP) Extremeties Extremities Exam: Trace Edema (Caitlin FrancisP) Neurologic Neuro Exam: Alert, Awake, Speech Clear, Plant Custodian Equal (Caitlin Francis) VTE Prophylaxis VTE Prophylaxis Meds: Heparin (Caitlin Francis) Assessment/Plan Assessment/Plan Assessment: Necrotic foot wound Foul-smelling left lower extremity/left foot 6 cm round ulcer Smaller ulcer over the anterior aspect of the left wu Leukocytosis Anemia Hypokalemia, resolved Peripheral arterial disease Diabetes Tobacco abuse Management Vital signs reviewed, labs reviewed Nothing by mouth today, planned for left AKA today left foot wound, + enterococcus faecalis ID input appreciated, continue Unasyn until surgical procedure Appreciate podiatry input CTA runoff results noted. Vascular surgery input appreciated, recommends AKA Accu-Cheks before meals and at bedtime with insulin therapy as needed Anemia, follow H&H closely DVT prophylaxis with low-dose heparin appreciate palliative care input, D/W Dr. Wylie, pt. concerned about going to longterm after surgery. D/W pt. will make arrangements for home with [facility], [place] has a lot of help at home. However, after talking to him, he seems amenable to short term rehab if needed. We will continue to evaluate and discuss with pt and family. Discussed with Dr. Noe, seen on his behalf Discussed with patient Discussed with nurse (Caitlin Francis) Caitlin Francis Dec 13, 2016 10:18 Kim Noe MD Dec 13, 2016 17:18
[2016-12-13 11:23] VITALS: PULSE 79
[2016-12-13] MEDS ORDERED: PROPOFOL 200 MG/20 ML AMP IV ONE (12:00)
[2016-12-13] MEDS ORDERED: PHENYLEPH/NS 1000 MCG/10 ML SYR IV ONE (12:00)
[2016-12-13] MEDS ORDERED: FAMOTIDINE 20 MG/2 ML VIAL IV ONE (12:00)
[2016-12-13] MEDS ORDERED: *RESP: ALBUTEROL 2.5 MG/3 ML NEB (PRN) PERIprocedural Use ONLY NEB ONE (15:22)
[2016-12-13] MEDS ORDERED: MIDAZOLAM HCL 2 MG/2 ML VIAL ONE (15:37)
[2016-12-13 20:00] VITALS: BP 165/86; PULSE 91; RESP 18; TEMP 98.3; O2SAT 98
[2016-12-13] MEDS: REMOVE OLD PATCH T-DERMAL SCH (20:30)
[2016-12-13 22:19] VITALS: O2SAT 98
[2016-12-14] MEDS: AMPICILLIN/SULBAC 3 GM/NS 100 ML IV SCH ×4 (00:15→06:25)
[2016-12-14] MEDS: ACETAMINOPHEN/HYDROcodone 325 MG/5 MG TAB PO PRN ×3 (00:16→20:55)
[2016-12-14 00:23] VITALS: BP 164/84; PULSE 97; RESP 18; TEMP 98.2; O2SAT 100
[2016-12-14 04:00] VITALS: BP 139/84; PULSE 94; RESP 18; TEMP 98; O2SAT 98
[2016-12-14] MEDS: HEPARIN SODIUM - SQ 10,000 UNITS/ML VIAL SQ SCH ×2 (05:00→17:20)
[2016-12-14] MEDS: INSULIN ASPART SUPPLEMENTAL SCALE SQ SCH ×4 (06:33→20:59)
[2016-12-14 08:00] VITALS: BP 136/63; PULSE 92; RESP 16; TEMP 97.6; O2SAT 100
[2016-12-14] MEDS: SODIUM CHLORIDE 0.9% FLUSH 10 ML FLUSH IV FLUSH SCH ×2 (09:00→20:59)
[2016-12-14 09:09] LABS: HEMATOCRIT 28.4 % (39.0-51.0); MEAN CELL VOLUME 88.6 FL (80.0-100.0); MEAN CORPUSCULAR HEMOGLOBIN 28.4 PG (27.0-34.0); PLATELET COUNT 374 TH/MM3 (150-450); RED BLOOD COUNT 3.21 MIL/MM3 (4.50-5.90); RED CELL DISTRIBUTION WIDTH 17.4 % (11.6-17.2); REVIEW FLAG FINAL; WHITE BLOOD COUNT 13.6 TH/MM3 (4.0-11.0)
[2016-12-14] MEDS: NICOTINE 14 MG/24 HR PATCH T-DERMAL SCH (09:12)
[2016-12-14] MEDS: POTASSIUM CHLORIDE 10 MEQ CONTROLLED RELEASE TAB PO SCH ×2 (09:15→20:56)
[2016-12-14 09:35] LABS: BICARBONATE 25.2 MEQ/L (21.0-32.0)
--- NOTE | 2016-12-14 10:34 | HHI.PR ---
Subjective Subjective Remarks Patient dozing, responds to verbal stimuli H0H Poor historian, answers simple questions appropriately Left upper leg elevated, day 1 postop AKA Pain management Afebrile Review of Systems Constitutional Constitutional Remarks 10 point ROS done positives noted mild anxiety at times, poor historian, postop day 1 left AKA, other systems unremarkable GI/Abdomen GI/Abdomen Remarks Nothing by mouth today Genitourinary Remarks Incontinent Musculoskeletal MS: Discomfort/Pain (left foot, secured with dressing clean dry and intact, special shoe on) Psychiatric Psychiatric: Normal Mood Vitals/Results Intake & Output 12/13/16 12/13/16 12/14/16 15:00 23:00 07:00 Intake Total 800 ml Output Total 100 ml Balance 700 ml IV Total 0 ml Other 800 ml Output Urine Total 0 ml Estimated Blood Loss 100 ml # Voids 4 # Bowel Movements 1 Vital Signs Vital Signs Date Time Temp Pulse Resp B/P Pulse Ox O2 Delivery O2 Flow Rate FiO2 12/14/16 08:00 97.6 92 16 136/63 100 12/14/16 04:00 98.0 94 18 139/84 98 12/14/16 00:23 98.2 97 18 164/84 100 12/13/16 22:19 98 12/13/16 20:00 98.3 91 18 165/86 98 12/13/16 16:50 98.9 89 16 140/89 99 Room Air 12/13/16 16:15 73 16 126/71 99 Room Air 12/13/16 16:00 70 16 121/65 99 Nasal Cannula 3 12/13/16 15:45 83 17 141/89 99 Nasal Cannula 3 12/13/16 15:30 74 15 135/74 98 Nasal Cannula 3 12/13/16 15:15 98.0 74 15 122/69 98 Nasal Cannula 3 12/13/16 11:23 99 Room Air 12/13/16 11:23 79 12/13/16 11:23 98.3 79 15 144/79 99 CBC/BMP: 12/14/16 0849 12/14/16 0849 Lab Results Laboratory Tests Test 12/14/16 08:49 White Blood Count 13.6 TH/MM3 Red Blood Count 3.21 MIL/MM3 Hemoglobin 9.1 GM/DL Hematocrit 28.4 % Mean Corpuscular Volume 88.6 FL Mean Corpuscular Hemoglobin 28.4 PG Mean Corpuscular Hemoglobin 32.0 % Concent Red Cell Distribution Width 17.4 % Platelet Count 374 TH/MM3 Mean Platelet Volume 9.9 FL Sodium Level 140 MEQ/L Potassium Level 4.0 MEQ/L Chloride Level 103 MEQ/L Carbon Dioxide Level 25.2 MEQ/L Anion Gap 12 MEQ/L Blood Urea Nitrogen 9 MG/DL Creatinine 0.99 MG/DL Estimat Glomerular Filtration 90 ML/MIN Rate Random Glucose 140 MG/DL Calcium Level 8.9 MG/DL Imaging Remarks Last Impressions Foot MRI 12/08/16 0000 Signed Impressions: Service Date/Time: Thursday, December 08, 2016 10:49 - CONCLUSION: There is subcutaneous edema may be focal ulceration as above without signs of osteomyelitis. [place] Meza MD Aorta w/Runoff CTA 12/07/16 0000 Signed Impressions: Service Date/Time: Wednesday, December 07, 2016 14:24 - CONCLUSION: Severe atherosclerotic vascular disease. Hemodynamically significant steno-occlusive lesions are noted in the right iliac, left femoral, left popliteal and left infrapopliteal vessels as described. Status post [id number] amputation right lower extremity. Nonvascular findings include enlarging pancreatic cysts and cholelithiasis. Watson Hyde MD Tibia/Fibula X-Ray 12/06/16 Signed Impressions: Service Date/Time: Tuesday, December 06, 2016 15:35 - CONCLUSION: 1. No acute bony abnormalities. Hypertrophic bony changes around the posterior femur and proximal fibula possibly related to remote trauma. Vascular calcifications in the popliteal artery. Leo Warner MD Foot X-Ray 12/06/16 Signed Impressions: Service Date/Time: Tuesday, December 06, 2016 15:33 - CONCLUSION: 1. No acute findings. 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 Leo Warner MD Physical Exam General General Appearance: Well Developed, No Acute Distress, Pale (mucous membranes) Appearance Remarks frail Eyes Eye Exam: Pupils Equal, Pupils Reactive, Sclera White Ears & Nose Ears & Nose Exam: Nasal Mucosa [place] Throat Throat Exam: Oral Mucosa [place] & Moist Neck Neck Exam: Trachea Midline Pulmonary Resp Exam: Breath Sounds Equal Cardiology CV Exam: Normal Sinus Rhythm Gastrointestinal/Abdomen GI Exam: Soft, Non-Tender, Bowel Sounds Present, Non-Distended Genitourinary Remarks donohue Musculoskeletal MS Exam: Joints Intact, Atrophy MS Remarks Status post day 1 left AKA, dressing clean dry and intact, stump elevated in bed Integumentary Skin Exam: Warm, Lesion(s) Extremeties Extremities Exam: No Edema, Trace Edema Neurologic Neuro Exam: Alert, Awake, Speech Clear, Category Manager Equal VTE Prophylaxis VTE Prophylaxis Meds: Heparin Assessment/Plan Assessment/Plan Assessment: Necrotic foot wound, status post day 1 left AKA, dressing secure clean dry and intact no active bleeding Anemia, stable postop 9.1 Leukocytosis continues, Hypokalemia, resolved Peripheral arterial disease Diabetes Tobacco abuse Management Vital signs reviewed, labs reviewed left AKA, day 1 postop ID input appreciated, continue Unasyn until surgical procedure, stop IV this pm and added PO Ampicillin Appreciate podiatry input Appreciate vascular surgery following patient, post op care and pain management per surgeon Accu-Cheks before meals and at bedtime with insulin therapy as needed, mild hyperglycemia Anemia, CBC checked today hemoglobin stable, 9.1 postop, before surgery 9.4 DVT prophylaxis with low-dose heparin appreciate palliative care input, D/W Dr. Wylie, pt. concerned about going to halfway after surgery. D/W pt. will make arrangements for home with [facility], [place]elo has a lot of help at home. However, after talking to him, he seems amenable to short term rehab if needed. We will continue to evaluate and discuss with pt and family. Will initiate case management to begin working on discharge planning again in a.m.. Discussed with Dr. Noe, seen on his behalf Discussed with patient Discussed with Caitlin Sierra Dec 14, 2016 10:34
[2016-12-14 12:00] VITALS: BP 150/69; PULSE 89; RESP 17; TEMP 97.3; O2SAT 100
[2016-12-14] MEDS: AMOXICILLIN (TRIHYDRATE) 500 MG CAP PO SCH ×2 (12:00→20:55)
--- NOTE | 2016-12-14 13:50 | PD.CAR.PN ---
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 If we can the improve the healing with some conservative measures with debridement of the foot and such as per Dr. Herndon that will be fine but otherwise the only other option is above-knee amputation. 12/11/16 I discussed with the patient the options I'm not sure if he completely understands but there are no viable options at this time other than not doing anything to the left leg or doing left above-knee amputation. Patient this point refuses amputation and states that we just want to cut on him. [place] best medical opinion this is the appropriate way to go but I'm not here to convince the patient into surgeries only to direct what is the most appropriate care and related this to the patient, If patient changes his mind I'll be available 12/12/16 Medical attending has a discussed issue with patient as well and he at this point agrees to left above-knee amputation Patient is completely contracted unable to extend the knee or the hip and distal foot is involved in dry gangrene Patient is bedridden and above-knee amputation of the only option We'll proceed with the same tomorrow 12/14/16 Status post above-knee amputation Dressing is dry and intact and I will leave the original dressing on until Thursday Objective: Vital Signs Date Time Temp Pulse Resp B/P Pulse Ox O2 Delivery O2 Flow Rate FiO2 12/14/16 12:00 97.3 89 17 150/69 100 12/14/16 08:00 97.6 92 16 136/63 100 12/14/16 04:00 98.0 94 18 139/84 98 12/14/16 00:23 98.2 97 18 164/84 100 12/13/16 22:19 98 12/13/16 20:00 98.3 91 18 165/86 98 12/13/16 16:50 98.9 89 16 140/89 99 Room Air 12/13/16 16:15 73 16 126/71 99 Room Air 12/13/16 16:00 70 16 121/65 99 Nasal Cannula 3 12/13/16 15:45 83 17 141/89 99 Nasal Cannula 3 12/13/16 15:30 74 15 135/74 98 Nasal Cannula 3 12/13/16 15:15 98.0 74 15 122/69 98 Nasal Cannula 3 Labs: Laboratory Tests Test 12/14/16 08:49 White Blood Count 13.6 TH/MM3 (4.0-11.0) Red Blood Count 3.21 MIL/MM3 (4.50-5.90) Hemoglobin 9.1 GM/DL (13.0-17.0) Hematocrit 28.4 % (39.0-51.0) Mean Corpuscular Volume 88.6 FL (80.0-100.0) Mean Corpuscular Hemoglobin 28.4 PG (27.0-34.0) Mean Corpuscular Hemoglobin 32.0 % Concent (32.0-36.0) Red Cell Distribution Width 17.4 % (11.6-17.2) Platelet Count 374 TH/MM3 (150-450) Mean Platelet Volume 9.9 FL (7.0-11.0) Sodium Level 140 MEQ/L (136-145) Potassium Level 4.0 MEQ/L (3.5-5.1) Chloride Level 103 MEQ/L (98-107) Carbon Dioxide Level 25.2 MEQ/L (21.0-32.0) Anion Gap 12 MEQ/L (5-15) Blood Urea Nitrogen 9 MG/DL (7-18) Creatinine 0.99 MG/DL (0.60-1.30) Estimat Glomerular Filtration 90 ML/MIN (>89) Rate Random Glucose 140 MG/DL (74-106) Calcium Level 8.9 MG/DL (8.5-10.1) Result Diagram: 12/14/16 0849 12/14/16 0849 Russ May MD Dec 14, 2016 13:50
[2016-12-14 16:00] VITALS: BP 147/74; PULSE 84; RESP 17; TEMP 97.9; O2SAT 100
[2016-12-14 20:00] VITALS: BP 142/71; PULSE 87; RESP 20; TEMP 97.6; O2SAT 97
[2016-12-14] MEDS: REMOVE OLD PATCH T-DERMAL SCH (20:59)
[2016-12-15] VITALS: BP 172/81; PULSE 84; RESP 20; TEMP 97.4; O2SAT 100
[2016-12-15 04:00] VITALS: BP 151/76; PULSE 83; RESP 20; TEMP 97.8; O2SAT 96
[2016-12-15] MEDS: ACETAMINOPHEN/HYDROcodone 325 MG/5 MG TAB PO PRN ×3 (04:30→17:33)
[2016-12-15] MEDS: HEPARIN SODIUM - SQ 10,000 UNITS/ML VIAL SQ SCH ×2 (04:31→17:28)
[2016-12-15] MEDS: AMOXICILLIN (TRIHYDRATE) 500 MG CAP PO SCH ×3 (04:31→21:03)
[2016-12-15] MEDS: INSULIN ASPART SUPPLEMENTAL SCALE SQ SCH ×4 (06:06→21:00)
[2016-12-15 08:29] VITALS: BP 143/69; PULSE 87; RESP 18; TEMP 97.6; O2SAT 100
[2016-12-15] MEDS: SODIUM CHLORIDE 0.9% FLUSH 10 ML FLUSH IV FLUSH SCH ×2 (09:00→21:06)
--- NOTE | 2016-12-15 10:10 | HHI.PR ---
Subjective Subjective Remarks Patient dozing, aroused with verbal stimuli Heart a hearing Poor historian, answers simple questions appropriately Left upper leg elevated, day 2 postop AKA Pain management Decreased appetite (Caitlin Francis) Review of Systems Constitutional Constitutional Remarks 10 point ROS done positives noted mild anxiety at times, poor historian, postop day 2 left AKA, other systems unremarkable decreased appetite (Caitlin Francis) GI/Abdomen GI/Abdomen Remarks Nothing by mouth today (Caitlin Francis) Genitourinary Remarks Incontinent (Caitlin Francis) Musculoskeletal MS: Discomfort/Pain (left foot, secured with dressing clean dry and intact, special shoe on) (Caitlin Francis) Psychiatric Psychiatric: Normal Mood (Caitlin Francis) Vitals/Results Intake & Output 12/14/16 12/14/16 12/15/16 15:00 23:00 07:00 Intake Total 0 ml 120 ml Output Total 220 ml Balance 0 ml 120 ml -220 ml Intake Oral 0 ml 120 ml Output Urine Total 220 ml # Voids 4 3 3 # Bowel Movements 0 1 2 Vital Signs Vital Signs Date Time Temp Pulse Resp B/P Pulse Ox O2 Delivery O2 Flow Rate FiO2 12/15/16 08:29 97.6 87 18 143/69 100 12/15/16 04:00 97.8 83 20 151/76 96 12/15/16 00:00 97.4 84 20 172/81 100 12/14/16 20:00 97.6 87 20 142/71 97 12/14/16 16:00 97.9 84 17 147/74 100 12/14/16 12:00 97.3 89 17 150/69 100 (Caitlin Francis) CBC/BMP: 12/14/16 0849 12/14/16 0849 Current Medications Administered Medications Medications (Trade) Dose Ordered Sig/Guevara Route PRN Reason Start Time Stop Time Status Last Admin Dose Admin Sodium Chloride (NS Flush) 2 ml BID IV FLUSH 12/06/16 21:00 12/14/16 20:59 Acetaminophen (Tylenol) 650 mg Q4H PRN PO TEMP > 100.4 4/15/17 16:15 12/07/16 08:00 Heparin Sodium (Porcine) (Heparin Inj) 5,000 units Q12H SQ 12/06/16 17:00 12/14/16 17:20 Acetaminophen/ Hydrocodone Bitart ([place] 5-325 Mg) 1 tab Q4H PRN PO PAIN SCALE 3 TO 10 12/06/16 16:15 12/15/16 04:30 Potassium Chloride (KCl) 30 meq Q12HR PO 12/06/16 21:00 12/14/16 20:56 Nicotine (Habitrol 14 Mg Patch.24 Hr) 1 patch DAILY T-DERMAL 12/09/16 16:15 12/14/16 09:12 Miscellaneous Information 1 HS T-DERMAL 12/09/16 21:00 12/14/16 20:59 Amoxicillin (Trimox) 500 mg Q8H PO 12/14/16 12:00 12/15/16 04:31 (Caitlin Francis) Physical Exam General General Appearance: Well Developed, No Acute Distress Appearance Remarks frail (Caitlin Francis) Eyes Eye Exam: Pupils Equal, Pupils Reactive, Sclera White (Caitlin FrancisP) Ears & Nose Ears & Nose Exam: Nasal Mucosa [place] (Caitlin Francis) Throat Throat Exam: Oral Mucosa [place] & Moist (Caitlin FrancisP) Neck Neck Exam: Trachea Midline (Caitlin FrancisP) Pulmonary Resp Exam: Breath Sounds Equal (Caitlin FrancisP) Cardiology CV Exam: Normal Sinus Rhythm (Caitlin FrancisP) Gastrointestinal/Abdomen GI Exam: Soft, Non-Tender, Bowel Sounds Present, Non-Distended (Caitlin FrancisP) Genitourinary Remarks [place] (Caitlin Francis) Musculoskeletal MS Exam: Joints Intact, Atrophy MS Remarks Status post day 1 left AKA, dressing clean dry and intact, stump elevated in bed (Caitlin FrancisP) Integumentary Skin Exam: Warm, Lesion(s) (Caitlin Francis) Extremeties Extremities Exam: No Edema, Trace Edema (Caitlin FrancisP) Neurologic Neuro Exam: Alert, Awake, Speech Clear, Landscape Drafter Equal (Caitlin Francis) VTE Prophylaxis VTE Prophylaxis Meds: Heparin (Caitlin Francis) Assessment/Plan Assessment/Plan Assessment: Necrotic foot wound, status post day 2 left AKA, dressing secure clean dry and intact no active bleeding Anemia, stable postop 9.1 Leukocytosis continues, blood cultures no growth so far Hypokalemia, resolved Peripheral arterial disease Diabetes Tobacco abuse Management Vital signs reviewed, labs reviewed left AKA, day 2 postop ID input appreciated, continue Unasyn until surgical procedure, stop IV this pm and added PO Ampicillin Appreciate podiatry input Appreciate vascular surgery following patient, post op care and pain management per surgeon Accu-Cheks before meals and at bedtime with insulin therapy as needed, mild hyperglycemia Anemia,hemoglobin stable, Anorexia ,Appetite decreased, possibly secondary to pain meds, postop, and or depression. Supportive care to patient to eat. And requested that staff feed patient at all times. DVT prophylaxis with low-dose heparin appreciate palliative care input, D/W Dr. Wylie, pt. concerned about going to alf after surgery. D/W pt. will make arrangements for home with [facility], [place] has a lot of help at home. However, after talking to him, he seems amenable to short term rehab if needed. We will continue to evaluate and discuss with pt and family. Will initiate case management to begin working on discharge planning again in a.m.. Discussed with Dr. hooper, seen on his behalf Discussed with patient, encouraged her and or staff to feed patient Discussed with nurse (Caitlin Francis) Assessment/Plan pt is seen & examined more awake now / answering questions /following commands pain is ok/pain meds are helping counselled against smoking/advised to completely abstain from it Risk of smoking & benefits of quitting were explained start ASA/add statin wound care cont current tx ss for d/c planning will f/u (Muna Hooper MD) Caitlin Francis Dec 15, 2016 10:10 Muna Hooper MD Dec 15, 2016 11:19
[2016-12-15] MEDS: POTASSIUM CHLORIDE 10 MEQ CONTROLLED RELEASE TAB PO SCH ×2 (10:29→21:03)
[2016-12-15] MEDS: NICOTINE 14 MG/24 HR PATCH T-DERMAL SCH (10:29)
[2016-12-15] MEDS ORDERED: PRAVASTATIN SOD 10 MG TAB PO ONE (11:15)
[2016-12-15] MEDS ORDERED: ASPIRIN EC 325 MG TABEC PO ONE (11:15)
[2016-12-15 12:35] VITALS: BP 149/70; PULSE 77; RESP 18; TEMP 97.9; O2SAT 100
--- NOTE | 2016-12-15 14:04 | MP ---
cc: RUSS HAIR MD DATE OF SURGERY: 12/13/2016 PREOPERATIVE DIAGNOSIS 1. Gangrene of the foot. 2. Contracture of the left leg in the hip and the knee. 3. Diabetes mellitus. 4. Chronic renal failure on dialysis. 5. Previous right above-knee amputation for peripheral vascular disease. POSTOPERATIVE DIAGNOSIS 1. Gangrene of the foot. 2. Contracture of the left leg in the hip and the knee. 3. Diabetes mellitus. 4. Chronic renal failure on dialysis. 5. Previous right above-knee amputation for peripheral vascular disease. OPERATIVE PROCEDURE Left above-knee amputation. SURGEON Yadira ANESTHESIA General. ESTIMATED BLOOD LOSS 100 cc. DETAILS OF PROCEDURE The patient was prepped and draped in the usual fashion and incision is delineated with silk string into the skin. The incision is made circumferentially around the leg with a 10 blade, deepened down with cautery down to the femur. The femur is now attended with periosteal elevator and dissected about two inches above the level of the actual skin incision and transected with an oscillating saw. The posterior flap is created now with the amputation knife and specimen removed. The superficial femoral artery is ligated with 0 Vicryl stick ties; however, it is occluded and not bleeding. Small bleeding vessels are now either ligated with 2-0 Vicryl or cauterized. The stump is now irrigated with copious amounts of saline and incisions closed deep layer to deep layer with 0 Vicryl, superficial fascia to superficial fascia with 0 Vicryl, and skin is closed with 2-0 nylon interrupted stitches. Dressing is applied. The patient tolerated the procedure well. Russ Hair SJ/LUCY /3:18 PM /1:58 PM
[2016-12-15 16:30] VITALS: BP 139/60; PULSE 82; RESP 18; TEMP 97.9; O2SAT 100
[2016-12-15 20:00] VITALS: BP 120/59; PULSE 92; RESP 20; TEMP 97.7; O2SAT 100
[2016-12-15] MEDS: REMOVE OLD PATCH T-DERMAL SCH (21:00)
[2016-12-15] MEDS: PRAVASTATIN SOD 10 MG TAB PO SCH (21:03)
[2016-12-16] VITALS: BP 139/71; PULSE 92; RESP 18; TEMP 98.4; O2SAT 99
[2016-12-16] MEDS: ACETAMINOPHEN/HYDROcodone 325 MG/5 MG TAB PO PRN ×3 (00:02→12:09)
[2016-12-16 04:00] VITALS: BP 135/74; PULSE 78; RESP 16; TEMP 98.1; O2SAT 99
[2016-12-16] MEDS: AMOXICILLIN (TRIHYDRATE) 500 MG CAP PO SCH ×3 (04:31→22:58)
[2016-12-16] MEDS: HEPARIN SODIUM - SQ 10,000 UNITS/ML VIAL SQ SCH ×2 (04:32→17:21)
[2016-12-16] MEDS: INSULIN ASPART SUPPLEMENTAL SCALE SQ SCH ×4 (06:35→21:00)
[2016-12-16 08:05] VITALS: BP 148/67; PULSE 87; RESP 18; TEMP 97.8; O2SAT 98
[2016-12-16] MEDS: NICOTINE 14 MG/24 HR PATCH T-DERMAL SCH (08:06)
[2016-12-16] MEDS: ASPIRIN EC 325 MG TABEC PO SCH (08:06)
[2016-12-16] MEDS: POTASSIUM CHLORIDE 10 MEQ CONTROLLED RELEASE TAB PO SCH ×2 (08:06→22:58)
[2016-12-16] MEDS: SODIUM CHLORIDE 0.9% FLUSH 10 ML FLUSH IV FLUSH SCH ×2 (08:06→22:59)
[2016-12-16 12:15] VITALS: BP 128/60; PULSE 98; RESP 18; TEMP 97.1; O2SAT 100
--- NOTE | 2016-12-16 12:54 | HHI.PR ---
Subjective Subjective Remarks Patient arouse awake , and planning of stump pain answers simple questions appropriately Left upper leg elevated, day 3 postop AKA Pain management Left AKA dressing clean dry and intact Febrile (Caitlin Francis) Review of Systems Constitutional Constitutional Remarks 10 point ROS done positives noted mild anxiety at times, poor historian, postop day 3 left AKA, other systems unremarkable decreased appetite, pain management left AKA (Caitlin Francis) GI/Abdomen GI/Abdomen Remarks Nothing by mouth today (Caitlin Francis) Genitourinary Remarks Incontinent (Caitlin Francis) Musculoskeletal MS: Discomfort/Pain (left foot, secured with dressing clean dry and intact, special shoe on) (Caitlin Francis) Psychiatric Psychiatric: Normal Mood, Agitation (at times), Anxiety (Caitlin Francis) Vitals/Results Intake & Output 12/15/16 12/15/16 12/16/16 15:00 23:00 07:00 Intake Total 960 ml 240 ml 0 ml Balance 960 ml 240 ml 0 ml Intake Oral 960 ml 240 ml 0 ml # Voids 3 0 0 # Bowel Movements 1 0 0 Vital Signs Vital Signs Date Time Temp Pulse Resp B/P Pulse Ox O2 Delivery O2 Flow Rate FiO2 12/16/16 12:15 97.1 98 18 128/60 100 12/16/16 08:05 97.8 87 18 148/67 98 12/16/16 06:35 18 12/16/16 04:00 98.1 78 16 135/74 99 12/16/16 00:00 98.4 92 18 139/71 99 12/15/16 20:00 97.7 92 20 120/59 100 12/15/16 16:30 97.9 82 18 139/60 100 (Caitlin Francis) CBC/BMP: 12/14/16 0849 12/14/16 0849 Imaging Remarks Last Impressions Foot MRI 12/08/16 0000 Signed Impressions: Service Date/Time: Thursday, December 08, 2016 10:49 - CONCLUSION: There is subcutaneous edema may be focal ulceration as above without signs of osteomyelitis. KDae Meza MD Aorta w/Runoff CTA 12/07/16 0000 Signed Impressions: Service Date/Time: Wednesday, December 07, 2016 14:24 - CONCLUSION: Severe atherosclerotic vascular disease. Hemodynamically significant steno-occlusive lesions are noted in the right iliac, left femoral, left popliteal and left infrapopliteal vessels as described. Status post [id number] amputation right lower extremity. Nonvascular findings include enlarging pancreatic cysts and cholelithiasis. Watson Hyde MD Tibia/Fibula X-Ray 12/06/16 0000 Signed Impressions: Service Date/Time: Tuesday, December 06, 2016 15:35 - CONCLUSION: 1. No acute bony abnormalities. Hypertrophic bony changes around the posterior femur and proximal fibula possibly related to remote trauma. Vascular calcifications in the popliteal artery. Leo Warner MD Foot X-Ray 12/06/16 0000 Signed Impressions: Service Date/Time: Tuesday, December 06, 2016 15:33 - CONCLUSION: 1. No acute findings. 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 Leo Warner MD Current Medications Administered Medications Medications (Trade) Dose Ordered Sig/Guevara Route PRN Reason Start Time Stop Time Status Last Admin Dose Admin Sodium Chloride (NS Flush) 2 ml BID IV FLUSH 12/06/16 21:00 12/16/16 08:06 Acetaminophen (Tylenol) 650 mg Q4H PRN PO TEMP > 100.4 12/06/16 16:15 12/07/16 08:00 Heparin Sodium (Porcine) (Heparin Inj) 5,000 units Q12H SQ 12/06/16 17:00 12/16/16 04:32 Potassium Chloride (KCl) 30 meq Q12HR PO 12/06/16 21:00 12/16/16 08:06 Nicotine (Habitrol 14 Mg Patch.24 Hr) 1 patch DAILY T-DERMAL 12/09/16 16:15 12/16/16 08:06 Miscellaneous Information 1 HS T-DERMAL 12/09/16 21:00 12/15/16 21:00 Amoxicillin (Trimox) 500 mg Q8H PO 12/14/16 12:00 12/16/16 11:19 Aspirin (Ecotrin Ec) 325 mg DAILY PO 12/16/16 09:00 12/16/16 08:06 Pravastatin Sodium (Pravachol) 10 mg HS PO 12/15/16 21:00 12/15/16 21:03 (Caitlin Francis M. CAFE ATTENDANT) Physical Exam General General Appearance: Well Developed, No Acute Distress, Pale (mucous membranes) , Anxious (at times is a.m. secondary to pain) Appearance Remarks frail (Caitlin Francis M. CAFE ATTENDANT) Eyes Eye Exam: Pupils Equal, Pupils Reactive, Sclera White (Ryann Francisan M. CAFE ATTENDANT) Ears & Nose Ears & Nose Exam: Nasal Mucosa [place] (Ryann Francisan M. CAFE ATTENDANT) Throat Throat Exam: Oral Mucosa [place] & Moist (OrlandoRyann alfordan M. CAFE ATTENDANT) Neck Neck Exam: Trachea Midline (Tito,Caitlin M. CAFE ATTENDANT) Pulmonary Resp Exam: Breath Sounds Equal (Tito,Caitlin M. CAFE ATTENDANT) Cardiology CV Exam: Normal Sinus Rhythm (Tito,Caitlin M. CAFE ATTENDANT) Gastrointestinal/Abdomen GI Exam: Soft, Non-Tender, Bowel Sounds Present, Non-Distended (Tito,Caitlin M. CAFE ATTENDANT) Genitourinary Remarks jayde (Ryann Francisan M. CAFE ATTENDANT) Musculoskeletal MS Exam: Joints Intact, Atrophy MS Remarks Status post day 3 left AKA, dressing clean dry and intact, stump elevated in bed (Ryann Francisan M. CAFE ATTENDANT) Integumentary Skin Exam: Warm, Lesion(s) (OrlandoRyann alfordan M. CAFE ATTENDANT) Extremeties Extremities Exam: No Edema, Trace Edema (Ryann Francisan M. CAFE ATTENDANT) Neurologic Neuro Exam: Alert, Awake, Speech Clear, Special Technical Operations Officer Equal (Caitlin Francis M. CAFE ATTENDANT) VTE Prophylaxis VTE Prophylaxis Meds: Heparin (Caitlin Francis M. CAFE ATTENDANT) Assessment/Plan Assessment/Plan Necrotic foot wound, status post day 2 left AKA, dressing secure clean dry and intact no active bleeding Anemia, stable postop Leukocytosis continues, blood cultures no growth so far Hypokalemia, resolved Peripheral arterial disease Diabetes Tobacco abuse Management Vital signs reviewed, labs reviewed left AKA, day 3 postop Pain seems to be worse today, patient is more alert and more appropriate Working on discharge planning with case management. Called [place] patient's niece to discuss her wishes for postop care when patient is ready for discharge. After some discussion it is questionable about whether niece is going to be able to care for him at home now that he is a double amputee. She is currently interested in rehabilitation at a SNF level, and then repeat eval possible needs afterwards. aFriba is the patient's POA ID input appreciated, patient is now requiring by mouth antibiotics postop Appreciate vascular surgery following patient, post op care and pain management per surgeon Left AKA elevated, and patient is able to hold stump up alone. Accu-Cheks before meals and at bedtime with insulin therapy as needed Anemia,hemoglobin stable, Anorexia , does better with total feed from staff will take more calories DVT prophylaxis with low-dose heparin pt is seen & examined more awake now / answering questions /following commands pain is ok/pain meds are helping counselled against smoking/advised to completely abstain from it Risk of smoking & benefits of quitting were explained start ASA/add statin wound care cont current tx ss for d/c planning will f/u (Caitlin Francis) Assessment/Plan PT is seen & Examined d/w PT again c/o pain/medfs are not enough will change Lottie 7.5 q 6 hr wound care cont current tx ss for dc planning./possible d./c to SNF in am ,if ok w Dr Guardado d/w SW d/w Caitlin agree w above will f/u (Muna Hooper MD) Caitlin Francis Dec 16, 2016 12:54 Muna Hooper MD Dec 16, 2016 16:49
[2016-12-16] MEDS ORDERED: PRAV10TA PO (13:10)
[2016-12-16] MEDS ORDERED: Aspirin Ec PO (13:10)
--- NOTE | 2016-12-16 14:24 | PD.CAR.PN ---
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 If we can the improve the healing with some conservative measures with debridement of the foot and such as per Dr. Herndon that will be fine but otherwise the only other option is above-knee amputation. 12/11/16 I discussed with the patient the options I'm not sure if he completely understands but there are no viable options at this time other than not doing anything to the left leg or doing left above-knee amputation. Patient this point refuses amputation and states that we just want to cut on him. [place] best medical opinion this is the appropriate way to go but I'm not here to convince the patient into surgeries only to direct what is the most appropriate care and related this to the patient, If patient changes his mind I'll be available 12/12/16 Medical attending has a discussed issue with patient as well and he at this point agrees to left above-knee amputation Patient is completely contracted unable to extend the knee or the hip and distal foot is involved in dry gangrene Patient is bedridden and above-knee amputation of the only option We'll proceed with the same tomorrow 12/14/16 Status post above-knee amputation Dressing is dry and intact and I will leave the original dressing on until Thursday12/16/16 Incision is clean and dry dressing has been removed and changed From my point patient can be discharged any time with instructions of dressing the stump daily Follow-up with my office in about 3 weeks for removal of stitches Objective: Vital Signs Date Time Temp Pulse Resp B/P Pulse Ox O2 Delivery O2 Flow Rate FiO2 12/16/16 12:15 97.1 98 18 128/60 100 12/16/16 08:05 97.8 87 18 148/67 98 12/16/16 06:35 18 12/16/16 04:00 98.1 78 16 135/74 99 12/16/16 00:00 98.4 92 18 139/71 99 12/15/16 20:00 97.7 92 20 120/59 100 12/15/16 16:30 97.9 82 18 139/60 100 Result Diagram: 12/14/16 0849 12/14/16 0849 Russ May MD Dec 16, 2016 14:24
--- NOTE | 2016-12-16 16:05 | HHI.IDPN ---
Note Infectious Disease Note Patient says he has pain in the left surgery stump. Wants pain med. Feel uncomfortable because of pain. Afebrile. PAST MEDICAL HISTORY Diabetes mellitus type 2, hypertension, glaucoma, legal blindness, peptic ulcer disease, chronic renal insufficiency, peripheral vascular disease and history of right AKA. ALLERGIES No known drug allergies. ANTIBIOTICS: Amoxicillin. SOCIAL HISTORY The patient reportedly smokes cigarettes, half-a-pack a day. Occasional alcohol. No illicit drugs. FAMILY HISTORY Noncontributory. Patient is cared for by his niece's daughter. OBJECTIVE: Vital Signs Date Time Temp Pulse Resp B/P Pulse Ox O2 Delivery O2 Flow Rate FiO2 12/16/16 12:15 97.1 98 18 128/60 100 12/16/16 08:05 97.8 87 18 148/67 98 12/16/16 06:35 18 12/16/16 04:00 98.1 78 16 135/74 99 12/16/16 00:00 98.4 92 18 139/71 99 12/15/16 20:00 97.7 92 20 120/59 100 12/15/16 16:30 97.9 82 18 139/60 100 12/15/16 12/15/16 12/16/16 15:00 23:00 07:00 Intake Total 960 ml 240 ml 0 ml Balance 960 ml 240 ml 0 ml Intake Oral 960 ml 240 ml 0 ml # Voids 3 0 0 # Bowel Movements 1 0 0 Microbiology Date/Time Procedure Status Source Growth 12/06/16 13:25 Aerobic Blood Culture - Preliminary Resulted Blood Peripheral NO GROWTH IN 2 DAYS 12/06/16 13:25 Anaerobic Blood Culture - Preliminary Resulted Blood Peripheral NO GROWTH IN 2 DAYS 12/06/16 13:30 Aerobic Blood Culture - Preliminary Resulted Blood Peripheral NO GROWTH IN 2 DAYS 12/06/16 13:30 Anaerobic Blood Culture - Preliminary Resulted Blood Peripheral NO GROWTH IN 2 DAYS 12/06/16 13:30 Gram Stain - Final Resulted Wound Foot 12/06/16 13:30 Wound Culture - Preliminary Resulted Group D Enterococcus PHYSICAL EXAMINATION GENERAL: No acute distress. HEENT: No icterus. NECK: Supple. No adenopathy or swelling. LUNGS: Clear to auscultation. HEART: Regular S1-S2. No audible murmurs. ABDOMEN: Bowel sounds present, soft, no tenderness. EXTREMITIES: Post L AKA. SKIN: No diffuse rash. NEURO: Nonfocal. PSYCHIATRIC: Calm and cooperative. IMPRESSION Post Left AKA. for Diabetic foot infection with infection/ulceration at the left foot. Non healing. Group D enterococcus. Stable. RECOMMENDATIONS Okay to stop antibiotics. I will sign off now. Josafat Whaley MD Dec 16, 2016 16:05
[2016-12-16 16:21] VITALS: BP 141/90; PULSE 90; RESP 18; TEMP 97.5; O2SAT 98
[2016-12-16] MEDS: ACETAMINOPHEN/HYDROcodone 325 MG/7.5 MG TAB PO PRN ×2 (17:21→22:58)
[2016-12-16 20:00] VITALS: BP 132/57; PULSE 89; RESP 18; TEMP 97.9; O2SAT 100
[2016-12-16] MEDS: REMOVE OLD PATCH T-DERMAL SCH (21:00)
[2016-12-16] MEDS: PRAVASTATIN SOD 10 MG TAB PO SCH (22:58)
[2016-12-17] VITALS: BP 132/76; PULSE 87; RESP 16; TEMP 97.4; O2SAT 100
[2016-12-17 04:00] VITALS: BP 111/63; PULSE 90; RESP 18; TEMP 97.2; O2SAT 100
[2016-12-17] MEDS: AMOXICILLIN (TRIHYDRATE) 500 MG CAP PO SCH (04:56)
[2016-12-17] MEDS: HEPARIN SODIUM - SQ 10,000 UNITS/ML VIAL SQ SCH (04:57)
[2016-12-17] MEDS: ACETAMINOPHEN/HYDROcodone 325 MG/7.5 MG TAB PO PRN ×2 (04:59→13:04)
[2016-12-17] MEDS: INSULIN ASPART SUPPLEMENTAL SCALE SQ SCH (07:00)
[2016-12-17 08:06] VITALS: BP 132/66; PULSE 76; RESP 19; TEMP 98.3; O2SAT 97
[2016-12-17] MEDS: SODIUM CHLORIDE 0.9% FLUSH 10 ML FLUSH IV FLUSH SCH (09:00)
--- NOTE | 2016-12-17 09:52 | HHI.PR ---
Subjective Subjective Remarks Patient dozing , but responds verbally , answers simple questions appropriately, [place] Left upper leg elevated, day 4 postop AKA Pain management Left AKA dressing clean dry and intact, Change daily and prn Review of Systems Constitutional Constitutional Remarks 10 point ROS done positives noted mild anxiety at times, poor historian, postop day 4 left AKA, other systems unremarkable decreased appetite, pain management left AKA GI/Abdomen GI/Abdomen Remarks Nothing by mouth today Genitourinary Remarks Incontinent Musculoskeletal MS: Discomfort/Pain (left foot, secured with dressing clean dry and intact, special shoe on) Integumentary Skin: Wounds Skin Remarks lt. aka wound care, Psychiatric Psychiatric: Normal Mood, Agitation (at times), Anxiety Vitals/Results Intake & Output 12/16/16 12/16/16 12/17/16 15:00 23:00 07:00 Intake Total 720 ml 480 ml 240 ml Output Total 200 ml 200 ml Balance 520 ml 280 ml 240 ml Intake Oral 720 ml 480 ml 240 ml Output Urine Total 200 ml 200 ml # Voids 3 1 2 # Bowel Movements 1 0 1 Vital Signs Vital Signs Date Time Temp Pulse Resp B/P Pulse Ox O2 Delivery O2 Flow Rate FiO2 12/17/16 04:00 97.2 90 18 111/63 100 12/17/16 00:00 97.4 87 16 132/76 100 12/16/16 20:00 97.9 89 18 132/57 100 12/16/16 16:21 97.5 90 18 141/90 98 12/16/16 12:15 97.1 98 18 128/60 100 CBC/BMP: 12/14/16 0849 12/14/16 0849 Physical Exam General General Appearance: Well Developed, No Acute Distress, Pale (mucous membranes) , Anxious (at times is a.m. secondary to pain) Appearance Remarks frail Eyes Eye Exam: Pupils Equal, Pupils Reactive, Sclera White Ears & Nose Ears & Nose Exam: Nasal Mucosa [place] Throat Throat Exam: Oral Mucosa [place] & Moist Neck Neck Exam: Trachea Midline Pulmonary Resp Exam: Breath Sounds Equal Cardiology CV Exam: Normal Sinus Rhythm Gastrointestinal/Abdomen GI Exam: Soft, Non-Tender, Bowel Sounds Present, Non-Distended Genitourinary Remarks [place] Musculoskeletal MS Exam: Joints Intact, Atrophy MS Remarks Status post day 4 left AKA, dressing clean dry and intact, stump elevated in bed , can change dressing daily and prn Integumentary Skin Exam: Warm, Lesion(s) Extremeties Extremities Exam: No Edema, Trace Edema Neurologic Neuro Exam: Alert, Awake, Speech Clear, Diesel Dragline Operator Equal VTE Prophylaxis VTE Prophylaxis Meds: Heparin Assessment/Plan Assessment/Plan left AKA, day 4 postop sleeping this am, but verbally responds Working on discharge planning with case management. Patient stable for dc today , SNF ID input appreciated, signed off, no further antibiotics needed. Appreciate vascular surgery following patient, post op care and pain management per surgeon stable for dc Accu-Cheks before meals and at bedtime with insulin therapy as needed Anemia,hemoglobin stable, Anorexia , does better with total feed from staff will take more calories, drinking glucerna with encouragement DVT prophylaxis with low-dose heparin Caitlin Francis Dec 17, 2016 09:52
[2016-12-17] MEDS: ASPIRIN EC 325 MG TABEC PO SCH (10:15)
[2016-12-17] MEDS: NICOTINE 14 MG/24 HR PATCH T-DERMAL SCH (10:15)
[2016-12-17] MEDS: POTASSIUM CHLORIDE 10 MEQ CONTROLLED RELEASE TAB PO SCH (10:15)
[2016-12-17] MEDS ORDERED: HYDR-3580 PO (11:27)
[2016-12-17] MEDS ORDERED: COLA100C3 PO (11:27)
[2016-12-17 12:08] VITALS: BP 133/64; PULSE 77; RESP 18; TEMP 98; O2SAT 97
--- NOTE | 2016-12-17 14:15 | PD.CAR.PN ---
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 If we can the improve the healing with some conservative measures with debridement of the foot and such as per Dr. Herndon that will be fine but otherwise the only other option is above-knee amputation. 12/11/16 I discussed with the patient the options I'm not sure if he completely understands but there are no viable options at this time other than not doing anything to the left leg or doing left above-knee amputation. Patient this point refuses amputation and states that we just want to cut on him. [place] best medical opinion this is the appropriate way to go but I'm not here to convince the patient into surgeries only to direct what is the most appropriate care and related this to the patient, If patient changes his mind I'll be available 12/12/16 Medical attending has a discussed issue with patient as well and he at this point agrees to left above-knee amputation Patient is completely contracted unable to extend the knee or the hip and distal foot is involved in dry gangrene Patient is bedridden and above-knee amputation of the only option We'll proceed with the same tomorrow 12/14/16 Status post above-knee amputation Dressing is dry and intact and I will leave the original dressing on until Thursday12/16/16 Incision is clean and dry dressing has been removed and changed From my point patient can be discharged any time with instructions of dressing the stump daily Follow-up with my office in about 3 weeks for removal of stitches 12/17/16 Stump incision clean and dry and healing nicely Dressing being applied daily Nothing to add to care Objective: Vital Signs Date Time Temp Pulse Resp B/P Pulse Ox O2 Delivery O2 Flow Rate FiO2 12/17/16 08:06 98.3 76 19 132/66 97 12/17/16 04:00 97.2 90 18 111/63 100 12/17/16 00:00 97.4 87 16 132/76 100 12/16/16 20:00 97.9 89 18 132/57 100 12/16/16 16:21 97.5 90 18 141/90 98 Result Diagram: 12/14/16 0849 12/14/16 0849 Russ May MD Dec 17, 2016 14:15
--- NOTE | 2017-01-04 15:30 | HHI.DS ---
Discharge Summary Admission Date Dec 06, 2016 at 16:02 Discharge Date: Dec 17, 2016 Admitting Diagnosis left foot and leg infected ulcer, diabetes (1) left foot gangrene, infection (2) severe peripheral vascular disease (3) COPD (4) GERD (5) hypertension (6) diabetes Procedures DATE OF SURGERY: 12/13/2016 OPERATIVE PROCEDURE Left above-knee amputation. Hospital Course This is a 71-year-old male who was brought into the emergency department at [facility] today with left foot ulcer. He is status post right above -knee amputation for similar reason. He was a poor historian. He was seen in room D 38 by attending. He was dropped at the emergency department by his caregiver. He recently was discharged from a local [facility]. It is not entirely clear as to why he was brought in particularly today. He was alert and verbal. Mildly confused. He had a stench of necrotic odor coming from His left foot. The foot was examined by the attending with the help of a nurse. There was a large round 6 cm foul-smelling full-thickness ulcer over the dorsum of the left foot relatively medially. The foot itself was warm with slow but present capillary refill. No palpable pulses available in the left foot including pedal pulse and posterior tibial pulse Labs were evaluated, CRP elevated. No fever. Hemodynamically stable. She was admitted for: Foul-smelling left lower extremity/left foot 6 cm round ulcer Smaller ulcer over the anterior aspect of the left wu Leukocytosis Anemia Hypokalemia Peripheral arterial disease Diabetes Tobacco abuse During the course of the hospitalization, the following events took place; Patient was admitted, continue on antibiotics Cultures were followed-left foot wound, + enterococcus faecalis ID input appreciated, continued Unasyn lactic acid normal Right foot MRI -no osteomyelitis Podiatry also consulted. Wound debrided at bedside per podiatry, wound care orders with betadine wet to dry applied and post op shoe ordered WBAT CTA runoff results noted. Vascular surgery input appreciated, recommended AKA Patient initially declined surgery. Accu-Cheks before meals and at bedtime with insulin therapy as needed Continued the home meds Anemia, follow H&H closely. No active bleeding. Remained stable. DVT prophylaxis with low-dose heparin Because patient was refusing surgery, didn't want to continue have any care. Palliative care was consulted. Also niece (POA) was contacted. Appreciate palliative care input, D/W Dr. Wylie, pt. concerned about going to usp after surgery. Discussed with pt. that we would make arrangements for home with [facility], niece indicated she had a lot of help at home. Pt. felt reassure after conversation with palliative care and niece, agreed to surgery and for short term rehab if needed. Vascular surgeon contacted, patient was put on scheduled for surgery Patient had left above-knee amputation on December 13, 2016 Postop course was uneventful Eventually antibiotics were discontinued per ID He remained afebrile, labs stable Case management was consulted for discharge planning. Initially nijoselo intended to take patient home but after careful consideration she requested SNF placement. Patient was discharge to SNF in stable condition Patient was counseled extensively about smoking cessation He was also started on aspirin and statin Pt Condition on Discharge: Stable Discharge Disposition: Discharge to SNF Discharge Instructions DIET: Follow Instructions for: Heart Healthy Diet Additional Diet Instructions: offer glucerna Activities you can perform: Non Weight Bearing Other Activity Instructions: f/u 3weeks, surgery pcp 1-2 weeks Follow up Referrals: PCP Follow-up - 1 Week SNF/[facility]/HH with [facility] Vascular Surgery - 3 Weeks New Medications: Docusate Sodium (Colace) 100 Mg Cap 100 MG PO BID Constipation #60 Ref 0 CAP Hydrocodone-Acetaminophen (Hydrocodone-Acetaminophen) 7.5-325 mg Tab 1 TAB PO Q4H PRN PAIN 5 TO 10 #40 TAB Pravastatin (Pravastatin) 10 Mg Tab 10 MG PO HS PAD #30 TAB ([Aspirin Ec]) 325 MG TABEC 325 MG PO DAILY TAB.EC Lorrie Melton January 04, 2017 15:30
== END 2016-12-17 15:32 | DRG 239 ==
LOC: NEPD 12:32 → NEDA 16:02 → N04B 17:08
PROVIDERS: ADMIT Specialist; ATTEND Specialist
PROC: 0Y6G0ZZ Detachment at Left Knee Region, Open Approach (ICD-10-PCS; principal; 2016-12-15)
DX: E11.52 Type 2 diabetes mellitus with diabetic peripheral angiopathy with gangrene (principal); N18.6 End stage renal disease; I12.0 Hypertensive chronic kidney disease with stage 5 chronic kidney disease or end stage renal disease; F03.90 Unspecified dementia, unspecified severity, without behavioral disturbance, psychotic disturbance, mood disturbance, and anxiety; Z68.1 Body mass index [BMI] 19.9 or less, adult; E11.22 Type 2 diabetes mellitus with diabetic chronic kidney disease; E11.42 Type 2 diabetes mellitus with diabetic polyneuropathy; E11.621 Type 2 diabetes mellitus with foot ulcer; L97.529 Non-pressure chronic ulcer of other part of left foot with unspecified severity; Z89.611 Acquired absence of right leg above knee; I73.9 Peripheral vascular disease, unspecified; Z87.11 Personal history of peptic ulcer disease; L08.9 Local infection of the skin and subcutaneous tissue, unspecified; B95.2 Enterococcus as the cause of diseases classified elsewhere; D64.9 Anemia, unspecified; E87.6 Hypokalemia; H54.8 Legal blindness, as defined in USA; H91.90 Unspecified hearing loss, unspecified ear; K21.9 Gastro-esophageal reflux disease without esophagitis; J44.9 Chronic obstructive pulmonary disease, unspecified; H40.9 Unspecified glaucoma; F17.210 Nicotine dependence, cigarettes, uncomplicated; Z74.01 Bed confinement status; R63.0 Anorexia; E11.628 Type 2 diabetes mellitus with other skin complications; G62.9 Polyneuropathy, unspecified; G89.29 Other chronic pain; Z89.511 Acquired absence of right leg below knee; Z99.2 Dependence on renal dialysis; Z51.5 Encounter for palliative care
CPT/HCPCS: 73590; 73630; 73720; 75635; 80048; 82948; 83605; 83735; 85007; 85025; 85027; 85610; 85730; 86140; 86850; 86900; 86901; 87040; 87070; 87077; 87186; 87205; 88307; 88311; 93005; 93922; 94664; 96365; A9579; J0295; J1644; J1815; J2060; J2250; J2370; J3370; J7040; J7613; L3260; Q9967

== ENCOUNTER → 2017-02-28 | Outpatient (CLI) | payer MEDICARE, MEDICAID ==
[~2017-02-28] MED LIST changes: -1-ME1LIQ PO; -ALUM5LIQ PO; +Aspirin Ec PO; -BISA10SU8 PR; -CIPR500T4 PO; +COLA100C3 PO; -FERR324T4 PO; -FLEEENE3 PR; -GABA300 PO; -GLUC1VIA2 IM; -HYDR-3129 PO; +HYDR-3580 PO; -LISI20 PO; -LOPE2TAB3 PO; -MAGN30S PO; -MAPA325T6 PO; -METF500 PO; -MULT-34 PO; -NORV10TA PO; -NOVOLOGMXP SQ; +PRAV10TA PO; -SENN8.6T8 PO; -[UNRECOGNIZED DRUG - CODE] PO
[2017-02-28 16:03] LABS: AUTOMATED NEUTROPHIL # 4.2 TH/MM3 (1.8-7.7); BASOPHIL % 0.4 % (0.0-2.0); EOSINOPHIL % 0.7 % (0.0-4.0); HEMATOCRIT 33.2 % (39.0-51.0); HEMO FLAGS DIFF FINAL; LYMPH % 20.2 % (9.0-44.0); LYMPHOCYTE # 1.1 TH/MM3 (1.0-4.8); MEAN CELL VOLUME 90.6 FL (80.0-100.0); MEAN CORPUSCULAR HGB CONC 30.9 % (32.0-36.0); MONO % 3.3 % (0.0-8.0); NEUT % 75.4 % (16.0-70.0); PLATELET COUNT 227 TH/MM3 (150-450); RED BLOOD COUNT 3.67 MIL/MM3 (4.50-5.90); RED CELL DISTRIBUTION WIDTH 18.4 % (11.6-17.2); WHITE BLOOD COUNT 5.6 TH/MM3 (4.0-11.0)
[2017-02-28 16:09] LABS: ALKALINE PHOSPHATASE 86 U/L (45-117); HDL CHOLESTEROL 58.6 MG/DL (40.0-60.0); TOTAL BILIRUBIN ADULT 0.2 MG/DL (0.2-1.0)
[2017-02-28 16:11] LABS: ALT (GPT) 14 U/L (12-78); ANION GAP 7 MEQ/L (5-15); AST (GOT) 15 U/L (15-37); BICARBONATE 26.8 MEQ/L (21.0-32.0); BLOOD UREA NITROGEN 14 MG/DL (7-18); CHLORIDE 108 MEQ/L (98-107); GLOMERULAR FILTRATION RATE 96 ML/MIN (>89); LDL CHOLESTEROL 92 MG/DL (0-99); POTASSIUM 3.8 MEQ/L (3.5-5.1); SODIUM (NA) 142 MEQ/L (136-145)
[2017-03-01 13:17] LABS: HEMOGLOBIN A1a 1.3 %; HEMOGLOBIN A1b 0.7 %; HEMOGLOBIN Ao 85.7 %; HEMOGLOBIN F 1.1 %; HEMOGLOBIN LA1C 1.4 %; HEMOGLOBIN P3 3.6 %
== END ==
LOC: HLAB 11:23
PROVIDERS: ATTEND Family Medicine
DX: E78.9 Disorder of lipoprotein metabolism, unspecified (principal); R78.89 Finding of other specified substances, not normally found in blood; E11.9 Type 2 diabetes mellitus without complications
CPT/HCPCS: 80053; 80061; 83036; 85025

== ENCOUNTER 2018-04-08 23:58 | Inpatient (IN) ==
--- NOTE | 2018-04-09 00:20 | ED ---
HPI General Chief complaint: Seizure Stated complaint: Medical,Evac Time Seen by Provider: 04/09/18 00:01 Source: patient and EMS Mode of arrival: EMS Limitations: altered mental status and physical limitation History of Present Illness HPI narrative: The patient is a 73-year-old male with unknown past medical history that was brought in by EMS from home. Family member that was there reported that they heard a scream from his room and when they went in she was nonresponsive but his eyes were rolled back stiff and his arms were crossed across his chest and appeared very stiff. It lasted a few minutes and then he was responding to his name. EMS is reporting that at the time of arrival here in the ED he has improved markedly. We do not know the patient's baseline. He does respond to his name opens his eyes and answers questions but cannot give us history about past medical history. He has bilateral AKA. Onset (ago): minute(s) (30) Related Data Home Medications Medication Instructions Recorded Confirmed Unable to Obtain Home Meds 04/09/18 04/09/18 Allergies Allergy/AdvReac Type Severity Reaction Status Date / Time No Known Allergies Allergy Unknown unknown Uncoded 04/09/18 00:11 Review of Systems ROS Unobtainable ROS Unobtainable: unobtainable due to mental status PMFSH History History Provided By: Porcelain Enameling Supervisor / EMT Social History Social History Substance History: Unable to Obtain Smoking Status: Unknown if ever smoked How Often Do You Have a Drink Containing Alcohol: Unable to Obtain Immunization History Tetanus Immunization: Unable to Assess Hx Influenza Vaccine This Season: Unable to Assess Exam Narrative Exam Narrative: GENERAL: Awake not oriented to place or time. SKIN: Focused skin assessment warm/dry. [place] on the left buttock area appears old healing unstageable. Dry skin with poor turgor HEAD: Atraumatic. Normocephalic. EYES: Pupils equal and round. No scleral icterus. No injection or drainage. Conjunctivitis noted bilateral eyes. He is legally blind ENT: No nasal bleeding or discharge. Mucous membranes pink and moist. NECK: Trachea midline. No JVD. CARDIOVASCULAR: Regular rate and rhythm. No murmur appreciated. RESPIRATORY: No accessory muscle use. Clear to auscultation. Breath sounds equal bilaterally. GASTROINTESTINAL: Abdomen soft, non-tender, nondistended. Hepatic and splenic margins not palpable. MUSCULOSKELETAL: No obvious deformities. No clubbing. No cyanosis. No edema. Bilateral BKA NEUROLOGICAL: Unable to fully assess. The patient does open up his eyes 1 will call his name. He is not very conversational. Does not follow commands. Is moving upper extremities without any signs of deficit. PSYCHIATRIC: Appropriate mood and affect; insight and judgment normal. Course Hospital Course: Patient admits sepsis criteria. Lactic acidosis with bandemia and a urinary tract infection. Hemodynamically stable. Was given fluids and Rocephin for presumptive UTI on arrival. On reevaluation his mentation appears to be improving markedly. Will admit for further evaluation and treatment. Reevaluation(s) Time: 01:36 Reevaluation #2: Patient is alert to person in place at this time he was able to tell us his full name and date of was he was not able to do initially when he came in. Time: 02:35 Initial Documented Vital Signs Pulse Rate 88 04/09/18 00:03 Respiratory Rate 20 04/09/18 00:03 Blood Pressure 122/84 04/09/18 00:03 Pulse Oximetry 97 04/09/18 00:03 Last Documented Vital Signs Temperature 98.0 F 04/09/18 00:11 Pulse Rate 88 04/09/18 00:03 Respiratory Rate 20 04/09/18 00:03 Blood Pressure 122/84 04/09/18 00:03 Pulse Oximetry 97 04/09/18 00:03 Critical Care Time Critical Care Time: Yes Total Critical Care Time: 30 Attestation: Aggregate critical care time was 30 minutes. Time to perform other separately billable procedures was not included in the critical care time. My time did not include minutes spent treating any other patients simultaneously or on activities that did not directly contribute to the patient's treatment. The services I provided to this patient were to treat and/or prevent clinically significant deterioration that could result in: Permanent disability and I provided critical care services requiring my management, as noted below: Chart data review, documentation time, medication orders and management, vital sign assessments/reviewing monitor data, ordering and reviewing lab tests, ordering and interpreting/reviewing x-rays and diagnostic studies, care of the patient and discussion of the patient with the admitting physicians. Medical Decision Making MDM Narrative Medical decision making narrative: Patient with urosepsis and not toxic metabolic encephalopathy. IV antibiotics given fluids given he is hemodynamically stable afebrile improve markedly in the emergency department and was admitted for further evaluation and treatment Medical Screen Exam Complete: Yes Emergency Medical Condition: Yes Lab Data Lab results reviewed: Yes I reviewed the patient's lab results. Result diagrams: 04/09/18 00:20 04/09/18 00:20 Lab Results 04/09/18 04/09/18 04/09/18 Range/Units 00:20 00:20 00:20 WBC 3.9 L (4.0-11.0) th/mm3 RBC 3.30 L (4.50-5.90) mil/mm3 Hgb 9.9 L (13.0-17.0) gm/dL Hct 29.3 L (39.0-51.0) % MCV 88.7 (80.0-100.0) fL MCH 30.1 (27.0-34.0) pg MCHC 33.9 (32.0-36.0) % RDW 16.8 (11.6-17.2) % Plt Count 158 (150-450) th/mm3 MPV 10.5 (7.0-11.0) fL Prelim Diff (Auto) Slide review pending Neut % (Auto) 62.1 (16.0-70.0) % Lymph % (Auto) 31.7 (9.0-44.0) % [place] % (Auto) 4.0 (0.0-8.0) % Eos % (Auto) 1.8 (0.0-4.0) % Baso % (Auto) 0.4 (0.0-2.0) % Neut # (Auto) 2.4 (1.8-7.7) th/mm3 Lymph # (Auto) 1.2 (1.0-4.8) th/mm3 [place] # (Auto) 0.2 (0.0-0.9) th/mm3 Eos # (Auto) 0.1 (0.0-0.4) th/mm3 Baso # (Auto) 0.0 (0.0-0.2) th/mm3 WBC Differential . Diff Scan Auto diff confirmed Differential Comment . Platelet Estimate Normal (Normal) Platelet Morphology Normal (Normal) Ovalocytes 1+ H (None) Acanthocytes (Spur) Occ H (None) Keratocytes Occ H (None) PT 10.7 (9.8-11.6) sec INR 1.1 Ratio APTT 28.8 (24.3-30.1) sec Sodium 143 (136-145) meq/L Potassium 3.7 (3.5-5.1) meq/L Chloride 110 H (98-107) meq/L Carbon Dioxide 22.9 (21.0-32.0) meq/L Anion Gap 10 (5-15) meq/L BUN 13 (7-18) mg/dL Creatinine 0.85 (0.60-1.30) mg/dL Estimated GFR Greater than 89 (>89) mL/min Random Glucose 118 H (74-106) mg/dL Lactic Acid (0.4-2.0) mmol/L Calcium 8.2 L (8.5-10.1) mg/dL Total Bilirubin 0.2 (0.2-1.0) mg/dL AST 7 L (15-37) U/L ALT 11 L (12-78) U/L Alkaline Phosphatase 83 (45-117) U/L Total Creatine Kinase 49 (39-308) U/L Troponin I Less than 0.02 L (0.02-0.05) ng/mL Total Protein 7.0 (6.4-8.2) g/dL Albumin 2.9 L (3.4-5.0) g/dL Urine Color (Yellw/Straw) Urine Clarity (Clear) Urine pH (5.0-8.5) Ur Specific [place] (1.002-1.035) Urine Protein (Neg-Trace) mg/dL Urine Glucose (UA) (Negative) mg/dL Urine Ketones (Negative) mg/dL Urine Occult Blood (Negative) Urine Nitrate (Negative) Urine Bilirubin (Negative) Urine Urobilinogen (Less than 2) mg/dL Ur Leukocyte Esterase (Negative) Urine RBC (0-3) /hpf Urine WBC (0-5) /hpf Urine WBC Clumps (None) Ur Squamous Epith Cells (0-5) /hpf Amorphous Sediment (None) /hpf Urine Bacteria (None) /hpf Micro UA Comment Urine Culture Comments 04/09/18 04/09/18 Range/Units 00:20 01:35 WBC (4.0-11.0) th/mm3 RBC (4.50-5.90) mil/mm3 Hgb (13.0-17.0) gm/dL Hct (39.0-51.0) % MCV (80.0-100.0) fL MCH (27.0-34.0) pg MCHC (32.0-36.0) % RDW (11.6-17.2) % Plt Count (150-450) th/mm3 MPV (7.0-11.0) fL Prelim Diff (Auto) Neut % (Auto) (16.0-70.0) % Lymph % (Auto) (9.0-44.0) % [place] % (Auto) (0.0-8.0) % Eos % (Auto) (0.0-4.0) % Baso % (Auto) (0.0-2.0) % Neut # (Auto) (1.8-7.7) th/mm3 Lymph # (Auto) (1.0-4.8) th/mm3 [place] # (Auto) (0.0-0.9) th/mm3 Eos # (Auto) (0.0-0.4) th/mm3 Baso # (Auto) (0.0-0.2) th/mm3 WBC Differential Diff Scan Differential Comment Platelet Estimate (Normal) Platelet Morphology (Normal) Ovalocytes (None) Acanthocytes (Spur) (None) Keratocytes (None) PT (9.8-11.6) sec INR Ratio APTT (24.3-30.1) sec Sodium (136-145) meq/L Potassium (3.5-5.1) meq/L Chloride (98-107) meq/L Carbon Dioxide (21.0-32.0) meq/L Anion Gap (5-15) meq/L BUN (7-18) mg/dL Creatinine (0.60-1.30) mg/dL Estimated GFR (>89) mL/min Random Glucose (74-106) mg/dL Lactic Acid 3.6 H (0.4-2.0) mmol/L Calcium (8.5-10.1) mg/dL Total Bilirubin (0.2-1.0) mg/dL AST (15-37) U/L ALT (12-78) U/L Alkaline Phosphatase (45-117) U/L Total Creatine Kinase (39-308) U/L Troponin I (0.02-0.05) ng/mL Total Protein (6.4-8.2) g/dL Albumin (3.4-5.0) g/dL Urine Color Yellow (Yellw/Straw) Urine Clarity Cloudy H (Clear) Urine pH 5.0 (5.0-8.5) Ur Specific [place] 1.006 (1.002-1.035) Urine Protein Negative (Neg-Trace) mg/dL Urine Glucose (UA) Negative (Negative) mg/dL Urine Ketones Negative (Negative) mg/dL Urine Occult Blood Large H (Negative) Urine Nitrate Positive H (Negative) Urine Bilirubin Negative (Negative) Urine Urobilinogen Less than 2 (Less than 2) mg/dL Ur Leukocyte Esterase Large H (Negative) Urine RBC 38 H (0-3) /hpf Urine WBC (0-5) /hpf Urine WBC Clumps Many H (None) Ur Squamous Epith Cells 2 (0-5) /hpf Amorphous Sediment Rare H (None) /hpf Urine Bacteria Moderate H (None) /hpf Micro UA Comment Cath-culture ind Urine Culture Comments Cath-cult indicated Imaging Data Radiologist's impression: Chest X-Ray 04/09/18 00:08 CONCLUSION: No acute cardiopulmonary abnormality. Head CT 04/09/18 00:08 CONCLUSION: 1. Age-related atrophy. 2. Patient motion blurring limiting the examination. . ECG Data Attestation: I personally reviewed and interpreted this ECG as follows: Interpretation: Normal sinus rhythm 88 bpm left anterior fascicular block with a leftward axis QTc 421 LA interval [address]-T wave abnormalities. No signs of acute ischemia. Discharge Plan Discharge Disposition Patient Disposition: 30 Still Patient Discharge Condition Condition: Stable Discharge Details Diagnosis: Severe sepsis, Acute UTI, Toxic metabolic encephalopathy Physicians Team ED Provider: Mian Kim Primary Care Provider: Jonathan Loaiza V Rxs /Orders / Referrals /Forms Prescriptions: No Action Unable to Obtain Home Meds RF: 0 Discharge Interventions Interventions: Vital Signs Last Done: 04/09/18 00:11 Status ED Status: With Doctor
[2018-04-09 00:36] LABS: Baso % (Auto) 0.4 % (0.0-2.0); Eos # (Auto) 0.1 th/mm3 (0.0-0.4); Eos % (Auto) 1.8 % (0.0-4.0); Hematocrit 29.3 % (39.0-51.0); Hemoglobin 9.9 gm/dL (13.0-17.0); Lymph # (Auto) 1.2 th/mm3 (1.0-4.8); Lymph % (Auto) 31.7 % (9.0-44.0); Mean Corpuscular HGB Conc 33.9 % (32.0-36.0); Mean Corpuscular Hemoglobin 30.1 pg (27.0-34.0); Mean Corpuscular Volume 88.7 fL (80.0-100.0); Mean Platelet Volume 10.5 fL (7.0-11.0); Mono # (Auto) 0.2 th/mm3 (0.0-0.9); Neut # (Auto) 2.4 th/mm3 (1.8-7.7); Neut % (Auto) 62.1 % (16.0-70.0); Platelet Count 158 th/mm3 (150-450); Red Cell Distribution Width 16.8 % (11.6-17.2); White Blood Count 3.9 th/mm3 (4.0-11.0)
[2018-04-09 00:49] LABS: Activated Partial Thrombo Time 28.8 sec (24.3-30.1); INR 1.1 Ratio; Prothrombin Time 10.7 sec (9.8-11.6)
[2018-04-09 00:53] LABS: Alanine Aminotransferase 11 U/L (12-78); Albumin 2.9 g/dL (3.4-5.0); Anion Gap 10 meq/L (5-15); Aspartate Aminotransferase 7 U/L (15-37); Blood Urea Nitrogen 13 mg/dL (7-18); Calcium 8.2 mg/dL (8.5-10.1); Carbon Dioxide 22.9 meq/L (21.0-32.0); Chloride 110 meq/L (98-107); Glomerular Filtration Rate Greater Than 89 mL/min (>89); Glucose,Random 118 mg/dL (74-106); Potassium 3.7 meq/L (3.5-5.1); Sodium 143 meq/L (136-145)
[2018-04-09 00:57] LABS: Alkaline Phosphatase 83 U/L (45-117)
[2018-04-09 01:05] LABS: Creatine Kinase 49 U/L (39-308)
[2018-04-09] MEDS ORDERED: Sod Chloride 0.9% Inj 800 ML IV.SIG SCH (01:15)
[2018-04-09] MEDS ORDERED: Sod Chloride 0.9% Inj 1,000 ML IV.SIG SCH (01:15)
[2018-04-09 01:18] LABS: Acanthocytes Occ; Ovalocytes 1+
[2018-04-09 01:20] LABS: Platelet Estimate Normal (Normal); Platelet Morphology Normal (Normal)
[2018-04-09] MEDS ORDERED: Sod Chloride 0.9% Inj 1,000 ML IV.SIG ONE ×2 (01:31→01:32)
--- NOTE | 2018-04-09 01:42 | CT ---
EXAM DATE: 04/09/2018 1:32 AM EDT AGE/SEX: 73 years / Male INDICATIONS: Altered mental status, possible seizure. CLINICAL DATA: This is the patient's initial encounter. Patient reports that signs and symptoms have been present for 1 day and indicates a pain score of 0/10. MEDICAL/SURGICAL HISTORY: Seizures. Hypertension. None. RADIATION DOSE: 56.35 CTDI (mGy) COMPARISON: No prior exams available for comparison. TECHNIQUE: CT of the head without contrast. Using automated exposure control and adjustment of the mA and/or kV according to patient size, radiation dose was kept as low as reasonably achievable to ob tain optimal diagnostic quality images. DICOM format image data is available electronically for revi ew and comparison. FINDINGS: There is patient motion blurring throughout the study. Cerebrum: The ventricles and cortical sulci are widened. No evidence of midline shift, mass lesion, hemorrhage or acute infarction. No extraaxial fluid collections are seen. Posterior Fossa: The cerebellum and brainstem are intact. The 4th ventricle is midline. The cerebe llopontine angle is unremarkable. Extracranial: The visualized portion of the orbits is intact. Skull: The calvaria is intact. No evidence of skull fracture. CONCLUSION: 1. Age-related atrophy. 2. Patient motion blurring limiting the examination. . Electronically signed by: Arnaud Cardona MD 04/09/2018 1:40 AM EDT
--- NOTE | 2018-04-09 01:43 | XR ---
EXAM DATE: 04/09/2018 1:38 AM EDT AGE/SEX: 73 years / Male INDICATIONS: Fever, weakness. CLINICAL DATA: This is the patient's initial encounter. Patient reports that signs and symptoms have been present for 1 day and indicates a pain score of 1/10. MEDICAL/SURGICAL HISTORY: . Diabetes mellitus type 2. Neuropathy. . Right above knee amputatio n. COMPARISON: No prior exams available for comparison. FINDINGS: A single AP view of the chest demonstrates the lungs to be symmetrically aerated without evidence of mass, infiltrate or effusion. The cardiomediastinal contours are unremarkable. There is calcificatio n/ossification between the right clavicle and coronoid process from prior injury. There are 2 rounded metallic densities which may represent the seen over the mid chest and the left axillary region.. CONCLUSION: No acute cardiopulmonary abnormality. Electronically signed by: Arnaud Cardona MD 04/09/2018 1:42 AM EDT
[2018-04-09 02:06] LABS: Amorphous Sediment,Urine Rare /hpf; Bacteria,Urine Moderate /hpf; Bilirubin,Urine Negative (Negative); Clarity,Urine Cloudy (Clear); Color,Urine Yellow (Yellw/Straw); Glucose,Urine (UA) Negative (Negative); Leukocyte Esterase,Urine Large (Negative); Nitrite,Urine Positive (Negative); Specific Gravity,Urine 1.006 (1.002-1.035); Squamous Epithelial Cell,Urine 2 /hpf (0-5)
[2018-04-09] MEDS ORDERED: Bisacodyl 10 MG Supp RECTAL PRN (02:43)
[2018-04-09] MEDS ORDERED: Acetaminophen 325 MG Tablet PO PRN (02:43)
[2018-04-09] MEDS ORDERED: Temazepam 15 MG Capsule PO PRN (02:43)
--- NOTE | 2018-04-09 02:58 | P.HPIM ---
History of Present Illness Primary Care Physician: Jonathan Loaiza MD History of Present Illness: This is a 73-year-old legally blind male with unknown PMH is brought to the ER by EMS for AMS. Pt unable to provide much history, history obtained from chart/ records. Per report, family members heard patient scream and found him unresponsive w/ arms stiff across his chest. Upon arrival to ER pt not answering questions or following commands. BP 122/84, HR 88, O2 sat 97% on RA, Afebrile. WBC 3.9. Hemoglobin 9.9. INR 1.1. Lactic Acid 3.6. Troponin negative. UA was significant UTI. CT Head w/ age-related atrophy and patient motion limiting exam. CXR with no acute findings. S/p Rocephin in ER. - Diagnosis (1) Encephalopathy (2) UTI (urinary tract infection) (3) Legally blind Review of Systems PAST FAMILY HISTORY: Unable to obtain unobtainable due to mental status PMFSH - History History Provided By: Horticulture Teacher / EMT - Tobacco History Smoking Status: Unknown if ever smoked - Alcohol History How Often Do You Have a Drink Containing Alcohol: Unable to Obtain - Substance Use History Substance History: Unable to Obtain - Immunization History Tetanus Immunization: Unable to Assess Hx Influenza Vaccine This Season: Unable to Assess Medications and Allergies Active Medications: Active Medications Acetaminophen (Tylenol) 650 mg PO Q4H PRN PRN Reason: Temp > 100.4 Al Hydroxide/Mg Hydroxide (Milk Of Magnesia Liq) 30 ml PO Q12H PRN PRN Reason: Mild Constipation Bisacodyl (Dulcolax Supp) 10 mg RECTAL DAILY PRN PRN Reason: SEVERE CONSITIPATION Sodium Chloride (Ns Inj) 800 mls @ 0 mls/hr IV.SIG .Q0M [place] Sodium Chloride (Ns Inj) 1,000 mls @ 0 mls/hr IV.SIG .Q0M [place] Ceftriaxone Sodium 1,000 mg/ (Sodium Chloride) 100 mls @ 200 mls/hr IV.SIG Q24H [place] Sodium Chloride (Ns Inj) 1,000 mls @ 100 mls/hr IV.CONT .Q10H [place] Lactulose (Lactulose Liq) 30 ml PO DAILY PRN PRN Reason: SEVERE CONSITIPATION Ondansetron HCl (Zofran Inj) 4 mg IV.PUSH Q6H PRN PRN Reason: NAUSEA OR VOMITING Senna/Docusate Sodium (Christina-Colace) 1 tab PO BID [place] Sennosides (Senokot) 17.2 mg PO Q12H PRN PRN Reason: Moderate Constipation Temazepam (Restoril) 15 mg PO HS PRN PRN Reason: INSOMNIA Allergies Allergy/AdvReac Type Severity Reaction Status Date / Time No Known Allergies Allergy Unknown unknown Uncoded 04/09/18 00:11 Home Medications Medication Instructions Recorded Confirmed Type Unable to Obtain Home Meds 04/09/18 04/09/18 History Exam Vital signs: Vital Signs 04/09/18 00:03 04/09/18 00:11 Temperature 98.0 F Pulse Rate 88 Respiratory Rate 20 Blood Pressure 122/84 Pulse Oximetry 97 Intake & Output 04/08/18 04/08/18 04/09/18 06:59 18:59 06:59 Intake Total 100 / 100 Balance 100 / 100 Weight 63.503 kg Intake: IV 100 / 100 Rocephin Inj 1,000 MG In NS Inj 100 / 100 100 ML @ 200 mls/hr IV.SIG ONCE ONE Rx#:[id number] Narrative: PE: GENERAL: Elderly black male in no acute distress. HEENT: Legally Blind. EOMI. No scleral icterus or conjunctival pallor. No lid lag or facial droop. CARDIOVASCULAR: Regular rate and rhythm. No obvious murmurs to auscultation. No chest tenderness to palpation. RESPIRATORY: No obvious rhonchi or wheezing. Clear to auscultation. Breath sounds equal bilaterally. GASTROINTESTINAL: Abdomen soft, non-tender, nondistended. BS normal. MUSCULOSKELETAL: Extremities without clubbing, cyanosis, or edema. No obvious deformities. NEUROLOGICAL: Awake, alert and oriented to person but confused. No focal neurologic deficits. Moving both upper and lower extremities spontaneously. Results - Labs CBC & Chem 7: 04/09/18 00:20 04/09/18 00:20 Labs: Short CBC 04/09/18 Range/Units 00:20 WBC 3.9 L (4.0-11.0) th/mm3 Hgb 9.9 L (13.0-17.0) gm/dL Hct 29.3 L (39.0-51.0) % Plt Count 158 (150-450) th/mm3 BMP 04/09/18 00:20 Sodium 143 Potassium 3.7 Chloride 110 H Carbon Dioxide 22.9 BUN 13 Creatinine 0.85 Calcium 8.2 L Cardiac Enzymes 04/09/18 Range/Units 00:20 Total Creatine Kinase 49 (39-308) U/L Troponin I Less than 0.02 L (0.02-0.05) ng/mL Liver Function 04/09/18 Range/Units 00:20 Total Bilirubin 0.2 (0.2-1.0) mg/dL AST 7 L (15-37) U/L ALT 11 L (12-78) U/L Alkaline Phosphatase 83 (45-117) U/L Albumin 2.9 L (3.4-5.0) g/dL Urine 04/09/18 Range/Units 01:35 Urine Color Yellow (Yellw/Straw) Urine Clarity Cloudy H (Clear) Urine pH 5.0 (5.0-8.5) Ur Specific [place] 1.006 (1.002-1.035) Urine Protein Negative (Neg-Trace) mg/dL Urine Glucose (UA) Negative (Negative) mg/dL - Imaging Impressions Chest X-Ray 04/09/18 00:08 CONCLUSION: No acute cardiopulmonary abnormality. Head CT 04/09/18 00:08 CONCLUSION: 1. Age-related atrophy. 2. Patient motion blurring limiting the examination. . Caprini VTE Risk Assessment Caprini VTE Risk Assessment: No/Low Risk (score <= 1) Caprini Risk Assessment Model: Point Value = 1 Point Value = 2 Point Value = 3 Point Value = 5 Age 41-60 Minor surgery BMI > 25 kg/m2 Swollen legs Varicose veins or History of unexplained or recurrent spontaneous Oral contraceptives or hormone replacement Sepsis (< 1 month) Serious lung disease, including pneumonia (< 1 month) Abnormal pulmonary function Acute myocardial infarction Congestive heart failure (< 1 month) History of inflammatory bowel disease Medical patient at bed rest Age 61-74 Arthroscopic surgery Major open surgery (> 45 min) Laparoscopic surgery (> 45 min) Malignancy Confined to bed (> 72 hours) Immobilizing plaster cast Central venous access Age >= 75 History of VTE Family history of VTE Factor V Leiden Prothrombin [id number] Lupus anticoagulant Anticardiolipin antibodies Elevated serum homocysteine Heparin-induced thrombocytopenia Other congenital or acquired thrombophilia Stroke (< 1 month) Elective arthroplasty Hip, pelvis, or leg fracture Acute spinal cord injury (< 1 month) Prophylaxis Regimen: Total Risk Factor Score Risk Level Prophylaxis Regimen 0-1 Low Early ambulation 2 Moderate Order ONE of the following: *Sequential Compression Device (SCD) *Heparin 5000 units SQ BID 3-4 Higher Order ONE of the following medications: *Heparin 5000 units SQ TID *Enoxaparin/Lovenox 40 mg SQ daily (WT < 150 kg, CrCl > 30 mL/min) *Enoxaparin/Lovenox 30 mg SQ daily (WT < 150 kg, CrCl > 10-29 mL/min) *Enoxaparin/Lovenox 30 mg SQ BID (WT < 150 kg, CrCl > 30 mL/min) AND/OR *Sequential Compression Device (SCD) 5 or more Highest Order ONE of the following medications: *Heparin 5000 units SQ TID (Preferred with Epidurals) *Enoxaparin/Lovenox 40 mg SQ daily (WT < 150 kg, CrCl > 30 mL/min) *Enoxaparin/Lovenox 30 mg SQ daily (WT < 150 kg, CrCl > 10-29 mL/min) *Enoxaparin/Lovenox 30 mg SQ BID (WT < 150 kg, CrCl > 30 mL/min) AND *Sequential Compression Device (SCD) Assessment and Plan - Assessment (1) Encephalopathy Code(s): G93.40 - Encephalopathy, unspecified Status: Acute (2) UTI (urinary tract infection) Code(s): N39.0 - Urinary tract infection, site not specified Status: Acute (3) Legally blind Code(s): H54.8 - Legal blindness, as defined in [place] Status: Acute - Plan A/P: 1. Encephalopathy: acute AMS w/ episode of possible seizure-like activity noted by family, CT Head w/ motion artifact, age related atrophy, images reviewed. Likely due to acute UTI, however r/o Seizure. Neuro Checks, Check EEG to eval for possible underlying seizure. 2. UTI: U/a w/ significant UTI, S/p Rocephin IV in ER, follow up cultures, continue IV Abx, IVF for hydration. 3. Legally Blind: Baseline. May need Case Management assistance 4. DVT Prophylaxis: SCD/Teds 5. Social work for d/c planning as needed 6. Case discussed w/ ER physician at length, labs/records/imaging reviewed by me.
[2018-04-09] MEDS: Senna/Docusate Sodium 8.6/50 MG Tablet PO SCH ×2 (09:51→21:54)
[2018-04-09] MEDS: Sod Chloride 0.9% Inj 1,000 ML IV.CONT SCH ×3 (10:11→21:59)
--- NOTE | 2018-04-09 11:03 | ECG ---
Date Performed: 04/09/2018 Time Performed: 00:11:50 PTAGE: 73 years EKG: Sinus rhythm LEFT ANTERIOR FASCICULAR BLOCK ABNORMAL ECG PREVIOUS TRACING : 12/06/2016 13.13 Since the previous tracing, no significant change noted DOCTOR: Avtar Zhu Interpretating Date/Time 04/09/2018 11:02:43
--- NOTE | 2018-04-09 14:24 | MG ---
cc: Esteban Fernandez MD, PhD TECHNIQUE: A 17-channel electroencephalogram. TEST NUMBER: [id number]. DESCRIPTION: The background rhythm reveals generalized slowing in the theta range roughly 6 Hz, amplitude 20-30 microvolts. There is fairly prominent muscle artifact. There are no epileptiform discharges. There are no lateralizing features seen. Hyperventilation was not performed. Photic was done with no significant driving response. INTERPRETATION: Abnormal study consistent with a [id number] degree of encephalopathy versus drowsy state. Esteban Fernandez MD, PhD MICHELLE/ts , 01:44 PM , 01:49 PM
[2018-04-10] MEDS: Sod Chloride 0.9% Inj 1,000 ML IV.CONT SCH ×3 (05:36→22:04)
[2018-04-10] MEDS: Senna/Docusate Sodium 8.6/50 MG Tablet PO SCH ×2 (09:30→22:18)
[2018-04-10 12:50] LABS: Baso % (Auto) 0.4 % (0.0-2.0); Eos % (Auto) 0.7 % (0.0-4.0); Hematocrit 27.5 % (39.0-51.0); Hemoglobin 9.1 gm/dL (13.0-17.0); Lymph # (Auto) 0.7 th/mm3 (1.0-4.8); Lymph % (Auto) 10.6 % (9.0-44.0); Mean Corpuscular HGB Conc 33.1 % (32.0-36.0); Mean Corpuscular Hemoglobin 29.6 pg (27.0-34.0); Mean Corpuscular Volume 89.4 fL (80.0-100.0); Mean Platelet Volume 10.8 fL (7.0-11.0); Mono # (Auto) 0.2 th/mm3 (0.0-0.9); Mono % (Auto) 3.6 % (0.0-8.0); Neut # (Auto) 5.8 th/mm3 (1.8-7.7); Neut % (Auto) 84.7 % (16.0-70.0); Platelet Count 163 th/mm3 (150-450); Red Blood Count 3.07 mil/mm3 (4.50-5.90); Red Cell Distribution Width 16.7 % (11.6-17.2); White Blood Count 6.8 th/mm3 (4.0-11.0)
[2018-04-10 13:08] LABS: Albumin 2.7 g/dL (3.4-5.0); Anion Gap 12 meq/L (5-15); Aspartate Aminotransferase 19 U/L (15-37); Blood Urea Nitrogen 9 mg/dL (7-18); Calcium 8.2 mg/dL (8.5-10.1); Carbon Dioxide 21.5 meq/L (21.0-32.0); Chloride 109 meq/L (98-107); Glomerular Filtration Rate Greater Than 89 mL/min (>89); Glucose,Random 106 mg/dL (74-106); Sodium 142 meq/L (136-145)
[2018-04-10 13:09] LABS: Potassium 3.5 meq/L (3.5-5.1)
[2018-04-10 13:12] LABS: Alanine Aminotransferase 9 U/L (12-78)
[2018-04-10 13:13] LABS: Alkaline Phosphatase 74 U/L (45-117); Total Protein 6.8 g/dL (6.4-8.2)
--- NOTE | 2018-04-10 14:19 | P.PNIM ---
Subjective Interval history: Encephalopathy is still present but has improved. Sepsis is improving. No new complaints from the patient. Global weakness is present. Patient recommended for senior living facility at discharge. Physical Exam Vital signs: Vital Signs 04/09/18 16:43 04/09/18 19:57 04/09/18 20:00 Temperature 96.3 F L Pulse Rate 70 75 84 Respiratory Rate 14 19 21 Blood Pressure 140/99 H 145/74 H Pulse Oximetry 100 98 99 04/09/18 23:24 04/10/18 00:00 04/10/18 04:00 Temperature Pulse Rate 56 L 50 L 45 L Respiratory Rate 21 22 Blood Pressure 146/65 H 160/71 H Pulse Oximetry 99 97 04/10/18 07:05 04/10/18 08:00 04/10/18 10:59 Temperature 97.5 F L Pulse Rate 56 L 58 L 79 Respiratory Rate 18 Blood Pressure 162/79 H Pulse Oximetry 100 04/10/18 12:00 Temperature 97.7 F Pulse Rate 62 Respiratory Rate 16 Blood Pressure 168/80 H Pulse Oximetry 99 Intake & Output 04/09/18 04/10/18 04/10/18 18:59 06:59 18:59 Intake Total 1000 / 1000 2340 / 2340 240 / 240 Output Total 1000 / 1000 750 / 750 Balance 0 / 0 1590 / 1590 240 / 240 Intake: IV 1000 / 1000 2100 / 2100 NS Inj 1,000 ML @ 100 mls/hr IV 1000 / 1000 2000 / 2000 .CONT .Q10H [facility] Rx#:[id number] Rocephin Inj 1,000 MG In NS Inj 100 / 100 100 ML @ 200 mls/hr IV.SIG Q24H [facility] Rx#:[id number] Oral 240 / 240 240 / 240 Output: Urine 750 / 750 Urine Amount (Catheter) 1000 / 1000 Indwelling Urethral Catheter 1000 / 1000 Narrative: GENERAL: NAD, A&Ox2 HEAD: Normocephalic. NECK: Supple, trachea midline. No lymphadenopathy. EYES: No scleral icterus. No injection or drainage. CARDIOVASCULAR: Regular rate and rhythm without murmurs, gallops, or rubs. RESPIRATORY: Breath sounds equal bilaterally. No accessory muscle use. GASTROINTESTINAL: Abdomen soft, non-tender, nondistended. MUSCULOSKELETAL: No cyanosis, or edema. SKIN: Warm and dry. NEURO: No focal neurological deficits. - Urinary Catheter Management Indwelling Urethral Catheter Cath placed during this visit: no Results - Labs CBC & Chem 7: 04/10/18 12:00 04/10/18 12:00 Laboratory Results - last 24 hr 04/09/18 04/10/18 04/10/18 01:35 12:00 12:00 WBC 6.8 RBC 3.07 L Hgb 9.1 L Hct 27.5 L MCV 89.4 MCH 29.6 MCHC 33.1 RDW 16.7 Plt Count 163 MPV 10.8 Neut % (Auto) 84.7 H Lymph % (Auto) 10.6 [place] % (Auto) 3.6 Eos % (Auto) 0.7 Baso % (Auto) 0.4 Neut # (Auto) 5.8 Lymph # (Auto) 0.7 L [place] # (Auto) 0.2 Eos # (Auto) 0.0 Baso # (Auto) 0.0 WBC Differential . Differential Comment Auto diff final Sodium 142 Potassium 3.5 Chloride 109 H Carbon Dioxide 21.5 Anion Gap 12 BUN 9 Creatinine 0.70 Estimated GFR Greater than 89 Random Glucose 106 Calcium 8.2 L Total Bilirubin 0.3 AST 19 ALT 9 L Alkaline Phosphatase 74 Total Protein 6.8 Albumin 2.7 L Urine Color Yellow Urine Clarity Cloudy H Urine pH 5.0 Ur Specific [place] 1.006 Urine Protein Negative Urine Glucose (UA) Negative Urine Ketones Negative Urine Occult Blood Large H Urine Nitrate Positive H Urine Bilirubin Negative Urine Urobilinogen Less than 2 Ur Leukocyte Esterase Large H Urine RBC 38 H Urine WBC Urine WBC Clumps Many H Ur Squamous Epith Cells 2 Amorphous Sediment Rare H Urine Bacteria Moderate H Micro UA Comment Cath-culture ind Urine Culture Comments Cath-cult indicated Microbiology 04/09/18 00:20 Blood - Peripheral Aerobic Blood Culture - Preliminary Staphylococcus coag negative 04/09/18 00:20 Blood - Peripheral Anaerobic Blood Culture - Preliminary gram positive cocci 04/09/18 01:35 Catheterized Urine Urine Culture - Preliminary gram negative rods 04/09/18 00:15 Blood - Peripheral Aerobic Blood Culture - Preliminary No growth in 1 day 04/09/18 00:15 Blood - Peripheral Anaerobic Blood Culture - Preliminary No growth in 1 day Assessment and Plan - Assessment (1) Encephalopathy Code(s): G93.40 - Encephalopathy, unspecified Status: Acute (2) UTI (urinary tract infection) Code(s): N39.0 - Urinary tract infection, site not specified Status: Acute (3) Legally blind Code(s): H54.8 - Legal blindness, as defined in [place] Status: Acute - Plan 73-year-old male admitted secondary to severe sepsis, UTI, and metabolic encephalopathy related to infection Sepsis Resolved Metabolic encephalopathy secondary to UTI Improving Continue to treat urinary tract infection UTI Continue Rocephin Follow cultures Chronic blindness Report of care DVT prophylaxis SCDs Weakness Continue PT Discharge Planning SNF at discharge
[2018-04-11] MEDS: Sod Chloride 0.9% Inj 1,000 ML IV.CONT SCH ×2 (05:36→15:24)
[2018-04-11] MEDS: Senna/Docusate Sodium 8.6/50 MG Tablet PO SCH ×2 (08:33→21:54)
[2018-04-11] MEDS ORDERED: Vancomycin Consult Pharmacy OTHER SCH (11:35)
--- NOTE | 2018-04-11 11:38 | P.PNIM ---
Subjective Interval history: Blood cultures show evidence of enterococcus bacteremia today. Patient has no new complaints. He has been responding to Rocephin. Physical Exam Vital signs: Vital Signs 04/10/18 12:00 04/10/18 16:00 04/10/18 20:00 Temperature 97.7 F 97.8 F 97.6 F Pulse Rate 62 68 75 Respiratory Rate 16 18 18 Blood Pressure 168/80 H 158/77 H 153/70 H Pulse Oximetry 99 100 100 04/11/18 00:00 04/11/18 04:00 04/11/18 08:00 Temperature 97.5 F L 97.6 F 97.4 F L Pulse Rate 69 65 56 L Respiratory Rate 18 18 Blood Pressure 155/67 H 135/83 184/85 H Pulse Oximetry 100 100 100 Intake & Output 04/10/18 04/11/18 04/11/18 18:59 06:59 18:59 Intake Total 640 / 640 1180 / 1180 240 / 240 Balance 640 / 640 1180 / 1180 240 / 240 Intake: IV 400 / 400 700 / 700 NS Inj 1,000 ML @ 100 mls/hr IV 400 / 400 600 / 600 .CONT .Q10H [facility] Rx#:[id number] Rocephin Inj 1,000 MG In NS Inj 100 / 100 100 ML @ 200 mls/hr IV.SIG Q24H [facility] Rx#:[id number] Oral 240 / 240 480 / 480 240 / 240 Other: # Voids 4 Date of Last Bowel Movement 04/10/18 # Bowel Movements 1 Narrative: GENERAL: NAD, A&Ox2 HEAD: Normocephalic. NECK: Supple, trachea midline. No lymphadenopathy. EYES: No scleral icterus. No injection or drainage. CARDIOVASCULAR: Regular rate and rhythm without murmurs, gallops, or rubs. RESPIRATORY: Breath sounds equal bilaterally. No accessory muscle use. GASTROINTESTINAL: Abdomen soft, non-tender, nondistended. MUSCULOSKELETAL: No cyanosis, or edema. SKIN: Warm and dry. NEURO: No focal neurological deficits. - Urinary Catheter Management Indwelling Urethral Catheter Cath placed during this visit: no Results - Labs CBC & Chem 7: 04/10/18 12:00 04/10/18 12:00 Laboratory Results - last 24 hr 04/09/18 04/10/18 04/10/18 01:35 12:00 12:00 WBC 6.8 RBC 3.07 L Hgb 9.1 L Hct 27.5 L MCV 89.4 MCH 29.6 MCHC 33.1 RDW 16.7 Plt Count 163 MPV 10.8 Neut % (Auto) 84.7 H Lymph % (Auto) 10.6 [place] % (Auto) 3.6 Eos % (Auto) 0.7 Baso % (Auto) 0.4 Neut # (Auto) 5.8 Lymph # (Auto) 0.7 L [place] # (Auto) 0.2 Eos # (Auto) 0.0 Baso # (Auto) 0.0 WBC Differential . Differential Comment Auto diff final Sodium 142 Potassium 3.5 Chloride 109 H Carbon Dioxide 21.5 Anion Gap 12 BUN 9 Creatinine 0.70 Estimated GFR Greater than 89 Random Glucose 106 Calcium 8.2 L Total Bilirubin 0.3 AST 19 ALT 9 L Alkaline Phosphatase 74 Total Protein 6.8 Albumin 2.7 L Urine Color Yellow Urine Clarity Cloudy H Urine pH 5.0 Ur Specific [place] 1.006 Urine Protein Negative Urine Glucose (UA) Negative Urine Ketones Negative Urine Occult Blood Large H Urine Nitrate Positive H Urine Bilirubin Negative Urine Urobilinogen Less than 2 Ur Leukocyte Esterase Large H Urine RBC 38 H Urine WBC Urine WBC Clumps Many H Ur Squamous Epith Cells 2 Amorphous Sediment Rare H Urine Bacteria Moderate H Micro UA Comment Cath-culture ind Urine Culture Comments Cath-cult indicated Microbiology 04/09/18 00:15 Blood - Peripheral Aerobic Blood Culture - Preliminary pleomorphic gram positive rods 04/09/18 00:15 Blood - Peripheral Anaerobic Blood Culture - Preliminary No growth in 2 days 04/09/18 00:20 Blood - Peripheral Aerobic Blood Culture - Preliminary Group D Enterococcus 04/09/18 00:20 Blood - Peripheral Anaerobic Blood Culture - Preliminary Group D Enterococcus 04/09/18 01:35 Catheterized Urine Urine Culture - Final Providencia stuartii Assessment and Plan - Assessment (1) Encephalopathy Code(s): G93.40 - Encephalopathy, unspecified Status: Acute (2) UTI (urinary tract infection) Code(s): N39.0 - Urinary tract infection, site not specified Status: Acute (3) Legally blind Code(s): H54.8 - Legal blindness, as defined in [place] Status: Acute - Plan 73-year-old male admitted secondary to severe sepsis, UTI, and metabolic encephalopathy related to infection Bacteremia found in blood today. Patient converted to inpatient status. Vancomycin added to treatment. Continue monitoring blood cultures. Enterococcus bacteremia Vancomycin added to treatment Consult infectious disease physician Follow blood cultures Sepsis Resolved Metabolic encephalopathy secondary to UTI Improving Continue to treat urinary tract infection UTI Continue Rocephin Follow cultures Chronic blindness Report of care DVT prophylaxis SCDs Weakness Continue PT Discharge Planning SNF at discharge
[2018-04-11] MEDS ORDERED: amLODIPine 5 MG Tablet PO ONE (11:45)
[2018-04-11] MEDS: Vancomycin Inj 1,000 MG in Sodium Chlor 0.9% Inj 250 ML IV.SIG SCH (15:24)
--- NOTE | 2018-04-11 15:42 | P.CONID ---
History of Present Illness Service: Infectious disease Consult date: 04/11/18 Requesting Physician: Karsten Hunter Reason for Consult: Evaluation and management of enterococcal bacteremia, sepsis and toxic ence Primary Care Provider: Jonathan Loaiza MD Family Provider: Jonathan Loaiza MD History of Present Illness: is a 73-year-old legally blind male with past medical history significant for diabetes, peripheral vascular disease, cigarette smoking, status post bilateral above-knee amputations due to his PVD and recurrent infections. Patient was seen by of vascular surgery as well as jack winder and surgeons in past. Patient has had infections related to Enterococcus faecalis in the feet in the past. Patient has also had Morganella bacteremia in the past and was seen by infectious disease as late as 2017. Per review of records it appears that patient was brought to the ER by EMS for altered mental status. Per report, family members heard patient scream and found him unresponsive w/ arms stiff across his chest. Upon arrival to ER pt not answering questions or following commands. BP 122/84, HR 88, O2 sat 97% on RA, Afebrile. WBC 3.9. Hemoglobin 9.9. INR 1.1. Lactic Acid 3.6. Troponin negative. UA was significant UTI. CT Head w/ age-related atrophy and patient motion limiting exam. CXR with no acute findings. S/p Rocephin in ER. Per review of records, the patient basically lives a bed and wheelchair existence since his right AKA. He is assisted in taking care of himself by his niece Fariba. Infectious diseases consulted for evaluation and management of sepsis, enterococcal bacteremia. Past Medical History * Severe peripheral vascular disease * Left foot gangrene, infection * Non-salvageable left foot/leg * Diabetes * Long-term cigarette smoker * Hypertension * GERD * COPD * Blindness * Anemia * Neuropathy * Remote history of alcohol abuse * Anxiety, intermittent * Remote history of seizures . Past Surgical History * Right AKA * Left leg ORIF * Exploratory laparotomy for perforated viscus * Debridement of left foot: 16,17 * . 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 - Tobacco History Second Hand Smoke Exposure: No Smoking Status: Former smoker Tobacco Type: Cigarettes - Alcohol History How Often Do You Have a Drink Containing Alcohol: 2 to 3 times a week - Substance Use History Substance History: No History of Abuse - Travel History Recent Travel in the [place] Within the Last 8 Weeks: No Recent Travel Out of the Country Within the Last 8 Weeks: No - Immunization History Tetanus Immunization: Unable to Assess Hx Influenza Vaccine This Season: Unable to Assess Medications and Allergies Active Medications: Active Medications Acetaminophen (Tylenol) 650 mg PO Q4H PRN PRN Reason: Temp > 100.4 Last Admin: 04/09/18 17:03 Dose: 650 mg Al Hydroxide/Mg Hydroxide (Milk Of Magnesia Liq) 30 ml PO Q12H PRN PRN Reason: Mild Constipation Amlodipine Besylate (Norvasc) 5 mg PO DAILY [facility] Bisacodyl (Dulcolax Supp) 10 mg RECTAL DAILY PRN PRN Reason: SEVERE CONSITIPATION Clonidine HCl (Catapres) 0.1 mg PO Q6H PRN PRN Reason: SYS BP GREATER THAN 160 MMHG Fentanyl (Duragesic 25 Mcg Patch.72hr) 1 patch T-DERMAL Q3D COUNT INCLUDES THE [facility] Last Admin: 04/10/18 17:04 Dose: 1 patch Sodium Chloride (Ns Inj) 800 mls @ 0 mls/hr IV.SIG .Q0M [facility] Sodium Chloride (Ns Inj) 1,000 mls @ 0 mls/hr IV.SIG .Q0M [facility] Ceftriaxone Sodium 1,000 mg/ (Sodium Chloride) 100 mls @ 200 mls/hr IV.SIG Q24H COUNT INCLUDES THE [facility] Last Infusion: 04/10/18 23:36 Dose: Infused Sodium Chloride (Ns Inj) 1,000 mls @ 100 mls/hr IV.CONT .Q10H COUNT INCLUDES THE [facility] Last Admin: 04/11/18 15:24 Dose: 100 mls/hr Vancomycin HCl 1,000 mg/ (Sodium Chloride) 250 mls @ 250 mls/hr IV.SIG Q12H COUNT INCLUDES THE [facility] Last Admin: 04/11/18 15:24 Dose: 250 mls/hr Lactulose (Lactulose Liq) 30 ml PO DAILY PRN PRN Reason: SEVERE CONSITIPATION Ondansetron HCl (Zofran Inj) 4 mg IV.PUSH Q6H PRN PRN Reason: NAUSEA OR VOMITING Patch Removal (Remove Old Patch) 1 each T-DERMAL Q3D COUNT INCLUDES THE [facility] Pharmacy Profile Note (Vancomycin Consult Pharmacy) 1 each OTHER [facility] Senna/Docusate Sodium (Christina-Colace) 1 tab PO BID COUNT INCLUDES THE [facility] Last Admin: 04/11/18 08:33 Dose: 1 tab Sennosides (Senokot) 17.2 mg PO Q12H PRN PRN Reason: Moderate Constipation Temazepam (Restoril) 15 mg PO HS PRN PRN Reason: INSOMNIA Allergies Allergy/AdvReac Type Severity Reaction Status Date / Time No Known Drug Allergies Allergy Unknown Unknown Verified 04/11/18 15:38 No Known Allergies Allergy Unknown unknown Uncoded 04/09/18 00:11 Home Medications Medication Instructions Recorded Confirmed Type Unable to Obtain Home Meds 04/09/18 04/09/18 History Exam Vital signs: Vital Signs 04/10/18 16:00 04/10/18 20:00 04/11/18 00:00 Temperature 97.8 F 97.6 F 97.5 F L Pulse Rate 68 75 69 Respiratory Rate 18 18 18 Blood Pressure 158/77 H 153/70 H 155/67 H Pulse Oximetry 100 100 100 04/11/18 04:00 04/11/18 08:00 Temperature 97.6 F 97.4 F L Pulse Rate 65 56 L Respiratory Rate 18 Blood Pressure 135/83 184/85 H Pulse Oximetry 100 100 Intake & Output 04/10/18 04/11/18 04/11/18 18:59 06:59 18:59 Intake Total 640 / 640 1180 / 1180 240 / 240 Balance 640 / 640 1180 / 1180 240 / 240 Intake: IV 400 / 400 700 / 700 NS Inj 1,000 ML @ 100 mls/hr IV 400 / 400 600 / 600 .CONT .Q10H COUNT INCLUDES THE [facility] Rx#:[id number] Rocephin Inj 1,000 MG In NS Inj 100 / 100 100 ML @ 200 mls/hr IV.SIG Q24H COUNT INCLUDES THE [facility] Rx#:[id number] Oral 240 / 240 480 / 480 240 / 240 Other: # Voids 4 Date of Last Bowel Movement 04/10/18 # Bowel Movements 1 Narrative: GENERAL: Well-nourished well-developed, not in acute distress SKIN: Cool and dry, no generalized rash HEAD: Atraumatic. Normocephalic. No temporal or scalp tenderness. EYES: Pupils equal round and reactive. Scleral icterus. No injection or drainage. No petechia ENT: Nothing abnormal detected NECK: Trachea midline. Supple, nontender, no meningeal signs. CARDIOVASCULAR: HS audible. RESPIRATORY: Clear to auscultation bilaterally. GASTROINTESTINAL: Abdomen soft nontender. MUSCULOSKELETAL: Bilateral above-knee amputation sites with no evidence of infection. NEUROLOGICAL: Alert oriented 3. Nonfocal. Psych cooperative IV line sites ok. Results - Labs CBC & Chem 7: 04/10/18 12:00 04/10/18 12:00 - Imaging Chest X-Ray 04/09/18 00:08 CONCLUSION: No acute cardiopulmonary abnormality. Head CT 04/09/18 00:08 CONCLUSION: 1. Age-related atrophy. 2. Patient motion blurring limiting the examination. . Assessment and Plan - Plan Enterococcal bacteremia Providentia UTI Acute metabolic encephalopathy: ? Infection versus baseline dementia Diabetes with history of neuropathy COPD History of seizure disorder per review of old records Recommendations Continue ceftriaxone IV for GNR UTI. Continue vancomycin IV patient appears to be clinically stable on vancomycin IV. Target trough 15-20 for bacteremia. If blood cultures grow VRE or change in clinical condition overnight regimen will have to be changed please call me. Check 2D echo Follow cultures Follow clinically Consider palliative care patient has been seen by this team in the past
[2018-04-12] MEDS: Vancomycin Inj 1,000 MG in Sodium Chlor 0.9% Inj 250 ML IV.SIG SCH ×2 (00:15→11:57)
[2018-04-12] MEDS: Sod Chloride 0.9% Inj 1,000 ML IV.CONT SCH ×3 (02:05→23:13)
[2018-04-12] MEDS: Senna/Docusate Sodium 8.6/50 MG Tablet PO SCH ×2 (09:03→21:08)
[2018-04-12] MEDS: amLODIPine 5 MG Tablet PO SCH (09:03)
--- NOTE | 2018-04-12 14:00 | P.PNIM ---
Subjective Interval history: No new complaints from the patient. No fevers overnight. No chills or vomiting. Physical Exam Vital signs: Vital Signs 04/11/18 16:00 04/11/18 20:00 04/12/18 00:00 Temperature 97.4 F L 98.4 F 97.8 F Pulse Rate 60 49 L 53 L Respiratory Rate 18 17 16 Blood Pressure 138/68 145/68 H 159/74 H Pulse Oximetry 99 100 100 04/12/18 04:00 04/12/18 08:00 04/12/18 08:30 Temperature 98.4 F 97.6 F Pulse Rate 53 L 58 L 49 L Respiratory Rate 15 16 Blood Pressure 158/74 H 191/85 H Pulse Oximetry 100 100 04/12/18 09:00 04/12/18 11:40 04/12/18 12:55 Temperature 98.0 F Pulse Rate 49 L 59 L 48 L Respiratory Rate 16 Blood Pressure 175/76 H Pulse Oximetry 100 Intake & Output 04/11/18 04/12/18 04/12/18 18:59 06:59 18:59 Intake Total 490 / 490 1350 / 1350 250 / 250 Balance 490 / 490 1350 / 1350 250 / 250 Intake: IV 250 / 250 1350 / 1350 250 / 250 NS Inj 1,000 ML @ 100 mls/hr IV 1000 / 1000 .CONT .Q10H [facility] Rx#:[id number] Vancomycin Inj 1,000 MG In NS 250 / 250 250 / 250 250 / 250 Inj 250 ML @ 250 mls/hr IV.SIG Q12H [facility] Rx#:[id number] Rocephin Inj 1,000 MG In NS Inj 100 / 100 100 ML @ 200 mls/hr IV.SIG Q24H [facility] Rx#:[id number] Oral 240 / 240 Other: # Voids 1 # Incontinent Voids 2 # Urine Diapers 2 Date of Last Bowel Movement 04/10/18 04/11/18 Narrative: GENERAL: NAD, A&Ox2 HEAD: Normocephalic. NECK: Supple, trachea midline. No lymphadenopathy. EYES: No scleral icterus. No injection or drainage. CARDIOVASCULAR: Regular rate and rhythm without murmurs, gallops, or rubs. RESPIRATORY: Breath sounds equal bilaterally. No accessory muscle use. GASTROINTESTINAL: Abdomen soft, non-tender, nondistended. MUSCULOSKELETAL: No cyanosis, or edema. SKIN: Warm and dry. NEURO: No focal neurological deficits. - Urinary Catheter Management Indwelling Urethral Catheter Cath placed during this visit: no Results - Labs CBC & Chem 7: 04/10/18 12:00 04/10/18 12:00 Microbiology 04/09/18 00:20 Blood - Peripheral Aerobic Blood Culture - Final Aerococcus viridans Staphylococcus coag negative 04/09/18 00:20 Blood - Peripheral Anaerobic Blood Culture - Final Aerococcus viridans 04/09/18 00:15 Blood - Peripheral Aerobic Blood Culture - Preliminary pleomorphic gram positive rods 04/09/18 00:15 Blood - Peripheral Anaerobic Blood Culture - Preliminary No growth in 3 days Assessment and Plan - Assessment (1) Encephalopathy Code(s): G93.40 - Encephalopathy, unspecified Status: Acute (2) UTI (urinary tract infection) Code(s): N39.0 - Urinary tract infection, site not specified Status: Acute (3) Legally blind Code(s): H54.8 - Legal blindness, as defined in [place] Status: Acute - Plan 73-year-old male admitted secondary to severe sepsis, UTI, and metabolic encephalopathy related to infection Continue to monitor cultures regarding bacteremia. Continue antibiotic treatments as recommended by ID. Monitor CBC and CMP. Enterococcus bacteremia Vancomycin added to treatment Consult infectious disease physician Follow blood cultures Sepsis Resolved Metabolic encephalopathy secondary to UTI Improving Continue to treat urinary tract infection UTI Continue Rocephin Follow cultures Chronic blindness Report of care DVT prophylaxis SCDs Weakness Continue PT Discharge Planning SNF at discharge
--- NOTE | 2018-04-12 16:45 | P.PNID ---
Subjective Remarks: is a 73-year-old legally blind male with past medical history significant for diabetes, peripheral vascular disease, cigarette smoking, status post bilateral above-knee amputations due to his PVD and recurrent infections. 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 Patient has had infections related to Enterococcus faecalis in the feet in the past. Patient has also had Morganella bacteremia in the past and was seen by infectious disease as late as 2017. Per review of records it appears that patient was brought to the ER by EMS for altered mental status. Per report, family members heard patient scream and found him unresponsive w/ arms stiff across his chest. Upon arrival to ER pt not answering questions or following commands. BP 122/84, HR 88, O2 sat 97% on RA, Afebrile. WBC 3.9. Hemoglobin 9.9. INR 1.1. Lactic Acid 3.6. Troponin negative. UA was significant UTI. CT Head w/ age-related atrophy and patient motion limiting exam. CXR with no acute findings. S/p Rocephin in ER. Per review of records, the patient basically lives a bed and wheelchair existence since his right AKA. He is assisted in taking care of himself by his niece Fariba. Infectious diseases consulted for evaluation and management of sepsis, enterococcal bacteremia. Past Medical History * Severe peripheral vascular disease * Left foot gangrene, infection * Non-salvageable left foot/leg * Diabetes * Long-term cigarette smoker * Hypertension * GERD * COPD * Blindness * Anemia * Neuropathy * Remote history of alcohol abuse * Anxiety, intermittent * Remote history of seizures . Past Surgical History * Right AKA * Left leg ORIF * Exploratory laparotomy for perforated viscus * Debridement of left foot: 16,17 * Overnight events reviewed No fevers No rash No diarrhea Mentation improved. Responds to simple Qs. Asks to be left alone when examining him. Antibiotics: Ceftriaxone IV Vanco IV Lines: Line sites ok Past Medical History: reviewed Allergies/Adverse Reactions: Allergies No Known Drug Allergies Allergy (Unknown, Verified 04/11/18 15:38) Unknown NKDA No Known Allergies Allergy (Unknown, Uncoded 04/09/18 00:11) unknown Objective Vital Signs 04/11/18 20:00 04/12/18 00:00 04/12/18 04:00 Temperature 98.4 F 97.8 F 98.4 F Pulse Rate 49 L 53 L 53 L Respiratory Rate 17 16 15 Blood Pressure 145/68 H 159/74 H 158/74 H Pulse Oximetry 100 100 100 04/12/18 08:00 04/12/18 08:30 04/12/18 09:00 Temperature 97.6 F Pulse Rate 58 L 49 L 49 L Respiratory Rate 16 Blood Pressure 191/85 H Pulse Oximetry 100 04/12/18 11:40 04/12/18 12:55 04/12/18 16:00 Temperature 98.0 F 98.1 F Pulse Rate 59 L 48 L 60 Respiratory Rate 16 16 Blood Pressure 175/76 H 176/77 H Pulse Oximetry 100 100 Intake & Output 04/11/18 04/12/18 04/12/18 18:59 06:59 18:59 Intake Total 490 / 490 1350 / 1350 250 / 250 Balance 490 / 490 1350 / 1350 250 / 250 Intake: IV 250 / 250 1350 / 1350 250 / 250 NS Inj 1,000 ML @ 100 mls/hr IV 1000 / 1000 .CONT .Q10H [facility] Rx#:[id number] Vancomycin Inj 1,000 MG In NS 250 / 250 250 / 250 250 / 250 Inj 250 ML @ 250 mls/hr IV.SIG Q12H [facility] Rx#:[id number] Rocephin Inj 1,000 MG In NS Inj 100 / 100 100 ML @ 200 mls/hr IV.SIG Q24H [facility] Rx#:[id number] Oral 240 / 240 Other: # Voids 1 # Incontinent Voids 2 # Urine Diapers 2 Date of Last Bowel Movement 04/10/18 04/11/18 04/09/18 00:15 Blood - Peripheral Aerobic Blood Culture - Final Corynebacterium not JK 04/09/18 00:15 Blood - Peripheral Anaerobic Blood Culture - Preliminary No growth in 3 days 04/09/18 00:20 Blood - Peripheral Aerobic Blood Culture - Final Aerococcus viridans Staphylococcus coag negative 04/09/18 00:20 Blood - Peripheral Anaerobic Blood Culture - Final Aerococcus viridans 04/12/18 07:15 Blood - Peripheral Aerobic Blood Culture - Pending 04/12/18 07:15 Blood - Peripheral Anaerobic Blood Culture - Pending 04/12/18 07:25 Blood - Peripheral Aerobic Blood Culture - Pending 04/12/18 07:25 Blood - Peripheral Anaerobic Blood Culture - Pending 04/09/18 01:35 Catheterized Urine Urine Culture - Final Providencia stuartii Imaging: ITS Impressions Chest X-Ray 04/09/18 00:08 CONCLUSION: No acute cardiopulmonary abnormality. Head CT 04/09/18 00:08 CONCLUSION: 1. Age-related atrophy. 2. Patient motion blurring limiting the examination. . Physical Exam: GENERAL: Well-nourished well-developed, not in acute distress SKIN: Cool and dry, no generalized rash HEAD: Atraumatic. Normocephalic. No temporal or scalp tenderness. EYES: Pupils equal round and reactive. Scleral icterus. No injection or drainage. No petechia ENT: Nothing abnormal detected NECK: Trachea midline. Supple, nontender, no meningeal signs. CARDIOVASCULAR: HS audible. RESPIRATORY: Clear to auscultation bilaterally. GASTROINTESTINAL: Abdomen soft nontender. MUSCULOSKELETAL: Bilateral above-knee amputation sites with no evidence of infection. NEUROLOGICAL: Alert oriented 3. Nonfocal. Psych cooperative IV line sites ok. Assessment and Plan - Plan Aeromonas viridans bacteremia Providentia UTI Acute metabolic encephalopathy: ? Infection versus baseline dementia Diabetes with history of neuropathy COPD History of seizure disorder per review of old records Recommendations Continue ceftriaxone IV for covers aeromonas viridans and Providencia UTI. DC vancomycin IV Check 2D echo r/o endocarditis. Follow cultures Follow clinically Literature reviewed: A.viridans can be seen in pt with mucositis. No GI or oral complaints at present time. Will need outpatient colonoscopy if goals remain aggressive or inpatient if persistent bacteremia. Ritchie Hunter.
[2018-04-12] MEDS ORDERED: hydrALAZINE 25 MG Tablet PO PRN (16:51)
[2018-04-12] MEDS ORDERED: Pharmacy Ordered Lab Info OTHER ONE (23:45)
[2018-04-13] MEDS: Sod Chloride 0.9% Inj 1,000 ML IV.CONT SCH ×3 (06:35→17:05)
[2018-04-13] MEDS: Senna/Docusate Sodium 8.6/50 MG Tablet PO SCH ×2 (08:14→23:00)
[2018-04-13] MEDS: amLODIPine 5 MG Tablet PO SCH (08:14)
--- NOTE | 2018-04-13 13:38 | P.PNID ---
Subjective Remarks: is a 73-year-old legally blind male with past medical history significant for diabetes, peripheral vascular disease, cigarette smoking, status post bilateral above-knee amputations due to his PVD and recurrent infections. 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 Patient has had infections related to Enterococcus faecalis in the feet in the past. Patient has also had Morganella bacteremia in the past and was seen by infectious disease as late as 2017. Per review of records it appears that patient was brought to the ER by EMS for altered mental status. Per report, family members heard patient scream and found him unresponsive w/ arms stiff across his chest. Upon arrival to ER pt not answering questions or following commands. BP 122/84, HR 88, O2 sat 97% on RA, Afebrile. WBC 3.9. Hemoglobin 9.9. INR 1.1. Lactic Acid 3.6. Troponin negative. UA was significant UTI. CT Head w/ age-related atrophy and patient motion limiting exam. CXR with no acute findings. S/p Rocephin in ER. Per review of records, the patient basically lives a bed and wheelchair existence since his right AKA. He is assisted in taking care of himself by his niece Fariba. Infectious diseases consulted for evaluation and management of sepsis, enterococcal bacteremia. Past Medical History * Severe peripheral vascular disease * Left foot gangrene, infection * Non-salvageable left foot/leg * Diabetes * Long-term cigarette smoker * Hypertension * GERD * COPD * Blindness * Anemia * Neuropathy * Remote history of alcohol abuse * Anxiety, intermittent * Remote history of seizures . Past Surgical History * Right AKA * Left leg ORIF * Exploratory laparotomy for perforated viscus * Debridement of left foot: 16,17 * Overnight events reviewed No fevers No rash No diarrhea Mentation improved. Responds to simple Qs. Asks to be left alone when examining him. Antibiotics: Ceftriaxone IV Vanco IV Lines: Line sites ok Past Medical History: reviewed Allergies/Adverse Reactions: Allergies No Known Drug Allergies Allergy (Unknown, Verified 04/11/18 15:38) Unknown NKDA No Known Allergies Allergy (Unknown, Uncoded 04/09/18 00:11) unknown Objective Vital Signs 04/12/18 16:00 04/12/18 17:20 04/12/18 20:00 Temperature 98.1 F 97.5 F L Pulse Rate 60 44 L 50 L Respiratory Rate 16 16 Blood Pressure 176/77 H 185/82 H Pulse Oximetry 100 100 04/13/18 00:00 04/13/18 02:57 04/13/18 04:00 Temperature 98.2 F 98 F 97.2 F L Pulse Rate 56 L 51 L 53 L Respiratory Rate 14 18 18 Blood Pressure 150/72 H 170/81 H 182/86 H Pulse Oximetry 100 100 100 04/13/18 04:15 04/13/18 08:00 04/13/18 12:00 Temperature 97.2 F L 97.5 F L Pulse Rate 47 L 50 L 54 L Respiratory Rate 18 18 Blood Pressure 183/89 H 137/62 Pulse Oximetry 100 99 Intake & Output 04/12/18 04/13/18 04/13/18 18:59 06:59 18:59 Intake Total 250 / 250 100 / 100 300 / 300 Output Total 100 / 100 Balance 250 / 250 0 / 0 300 / 300 Weight 61.9 kg Intake: IV 250 / 250 100 / 100 300 / 300 NS Inj 1,000 ML @ 100 mls/hr IV 300 / 300 .CONT .Q10H [facility] Rx#:[id number] Vancomycin Inj 1,000 MG In NS 250 / 250 Inj 250 ML @ 250 mls/hr IV.SIG Q12H [facility] Rx#:[id number] Rocephin Inj 1,000 MG In NS Inj 100 / 100 100 ML @ 200 mls/hr IV.SIG Q24H [facility] Rx#:[id number] Oral 0 / 0 Output: Urine 100 / 100 Other: # Voids 3 Date of Last Bowel Movement 04/11/18 04/11/18 # Bowel Movements 0 Weight On Admission 61.9 kg 04/12/18 07:15 Blood - Peripheral Aerobic Blood Culture - Preliminary No growth in 1 day 04/12/18 07:15 Blood - Peripheral Anaerobic Blood Culture - Preliminary No growth in 1 day 04/12/18 07:25 Blood - Peripheral Aerobic Blood Culture - Preliminary No growth in 1 day 04/12/18 07:25 Blood - Peripheral Anaerobic Blood Culture - Preliminary No growth in 1 day 04/09/18 00:15 Blood - Peripheral Aerobic Blood Culture - Final Corynebacterium not JK 04/09/18 00:15 Blood - Peripheral Anaerobic Blood Culture - Preliminary No growth in 4 days 04/09/18 00:20 Blood - Peripheral Aerobic Blood Culture - Final Aerococcus viridans Staphylococcus coag negative 04/09/18 00:20 Blood - Peripheral Anaerobic Blood Culture - Final Aerococcus viridans 04/09/18 01:35 Catheterized Urine Urine Culture - Final Providencia stuartii Imaging: ITS Impressions Chest X-Ray 04/09/18 00:08 CONCLUSION: No acute cardiopulmonary abnormality. Head CT 04/09/18 00:08 CONCLUSION: 1. Age-related atrophy. 2. Patient motion blurring limiting the examination. . Physical Exam: GENERAL: Well-nourished well-developed, not in acute distress SKIN: Cool and dry, no generalized rash HEAD: Atraumatic. Normocephalic. No temporal or scalp tenderness. EYES: Pupils equal round and reactive. Scleral icterus. No injection or drainage. No petechia ENT: Nothing abnormal detected NECK: Trachea midline. Supple, nontender, no meningeal signs. CARDIOVASCULAR: HS audible. RESPIRATORY: Clear to auscultation bilaterally. GASTROINTESTINAL: Abdomen soft nontender. MUSCULOSKELETAL: Bilateral above-knee amputation sites with no evidence of infection. NEUROLOGICAL: Alert oriented 3. Nonfocal. Psych cooperative IV line sites ok. Assessment and Plan - Plan Aeromonas viridans bacteremia Providentia UTI Acute metabolic encephalopathy: ? Infection versus baseline dementia Diabetes with history of neuropathy COPD History of seizure disorder per review of old records Recommendations Continue ceftriaxone IV for covers aeromonas viridans and Providencia UTI. Check 2D echo r/o endocarditis. Follow cultures Follow clinically Literature reviewed: A.viridans can be seen in pt with mucositis. No GI or oral complaints at present time. Will need outpatient colonoscopy if goals remain aggressive or inpatient if persistent bacteremia. Ritchie Melton CLINICAL STUDY MANAGER
[2018-04-13 14:05] LABS: Baso % (Auto) 0.4 % (0.0-2.0); Eos # (Auto) 0.1 th/mm3 (0.0-0.4); Eos % (Auto) 1.4 % (0.0-4.0); Hematocrit 25.5 % (39.0-51.0); Hemoglobin 8.5 gm/dL (13.0-17.0); Lymph # (Auto) 1.1 th/mm3 (1.0-4.8); Lymph % (Auto) 27.8 % (9.0-44.0); Mean Corpuscular HGB Conc 33.4 % (32.0-36.0); Mean Corpuscular Hemoglobin 29.5 pg (27.0-34.0); Mean Corpuscular Volume 88.2 fL (80.0-100.0); Mean Platelet Volume 10.3 fL (7.0-11.0); Mono # (Auto) 0.2 th/mm3 (0.0-0.9); Mono % (Auto) 5.1 % (0.0-8.0); Neut # (Auto) 2.5 th/mm3 (1.8-7.7); Neut % (Auto) 65.3 % (16.0-70.0); Platelet Count 185 th/mm3 (150-450); Red Blood Count 2.88 mil/mm3 (4.50-5.90); Red Cell Distribution Width 16.6 % (11.6-17.2); White Blood Count 3.9 th/mm3 (4.0-11.0)
[2018-04-13 14:57] LABS: Alanine Aminotransferase 11 U/L (12-78); Albumin 2.4 g/dL (3.4-5.0); Anion Gap 6 meq/L (5-15); Aspartate Aminotransferase 9 U/L (15-37); Blood Urea Nitrogen 9 mg/dL (7-18); Calcium 8.2 mg/dL (8.5-10.1); Chloride 110 meq/L (98-107); Glomerular Filtration Rate Greater Than 89 mL/min (>89); Glucose,Random 147 mg/dL (74-106); Potassium 3.5 meq/L (3.5-5.1); Sodium 142 meq/L (136-145)
[2018-04-13 14:58] LABS: Alkaline Phosphatase 73 U/L (45-117); Total Protein 6.4 g/dL (6.4-8.2)
[2018-04-13 15:05] LABS: Platelet Estimate Normal (Normal)
[2018-04-13 15:06] LABS: Ovalocytes 1+
[2018-04-13 15:07] LABS: Acanthocytes Occ
[2018-04-13] MEDS ORDERED: Potassium Chloride 25 MEQ Effervescent Tablet PO ONE (16:30)
--- NOTE | 2018-04-13 16:37 | P.PN ---
Subjective Interval history: Has no complaints, no fever, no chest pain, no shortness of breath. Has a good appetite. Poor historian. No acute changes overnight. Physical Exam Vital signs: Vital Signs 04/12/18 17:20 04/12/18 20:00 04/13/18 00:00 Temperature 97.5 F L 98.2 F Pulse Rate 44 L 50 L 56 L Respiratory Rate 16 14 Blood Pressure 185/82 H 150/72 H Pulse Oximetry 100 100 04/13/18 02:57 04/13/18 04:00 04/13/18 04:15 Temperature 98 F 97.2 F L Pulse Rate 51 L 53 L 47 L Respiratory Rate 18 18 Blood Pressure 170/81 H 182/86 H Pulse Oximetry 100 100 04/13/18 08:00 04/13/18 12:00 Temperature 97.2 F L 97.5 F L Pulse Rate 50 L 54 L Respiratory Rate 18 18 Blood Pressure 183/89 H 137/62 Pulse Oximetry 100 99 Intake & Output 04/12/18 04/13/18 04/13/18 18:59 06:59 18:59 Intake Total 250 / 250 100 / 100 1000 / 1000 Output Total 100 / 100 Balance 250 / 250 0 / 0 1000 / 1000 Weight 61.9 kg Intake: IV 250 / 250 100 / 100 1000 / 1000 NS Inj 1,000 ML @ 100 mls/hr IV 1000 / 1000 .CONT .Q10H [facility] Rx#:[id number] Vancomycin Inj 1,000 MG In NS 250 / 250 Inj 250 ML @ 250 mls/hr IV.SIG Q12H [facility] Rx#:[id number] Rocephin Inj 1,000 MG In NS Inj 100 / 100 100 ML @ 200 mls/hr IV.SIG Q24H [facility] Rx#:[id number] Oral 0 / 0 Output: Urine 100 / 100 Other: # Voids 3 Date of Last Bowel Movement 04/11/18 04/11/18 # Bowel Movements 0 Weight On Admission 61.9 kg Narrative: GENERAL: 73-year-old elderly male, appears older than stated age. NAD, A&Ox2 HEAD: Normocephalic. NECK: Supple, trachea midline. No lymphadenopathy. EYES: No scleral icterus. No injection or drainage. CARDIOVASCULAR: Regular rate and rhythm without murmurs, gallops, or rubs. RESPIRATORY: Breath sounds equal bilaterally. No accessory muscle use. GASTROINTESTINAL: Abdomen soft, non-tender, nondistended. MUSCULOSKELETAL: No cyanosis, or edema. Bilateral above-knee amputation SKIN: Warm and dry. NEURO: No focal neurological deficits. - Urinary Catheter Management Indwelling Urethral Catheter Cath placed during this visit: no Results - Labs CBC & Chem 7: 04/13/18 13:48 04/13/18 13:40 Laboratory Results - last 24 hr 04/13/18 04/13/18 13:40 13:48 WBC 3.9 L RBC 2.88 L Hgb 8.5 L Hct 25.5 L MCV 88.2 MCH 29.5 MCHC 33.4 RDW 16.6 Plt Count 185 MPV 10.3 Prelim Diff (Auto) Slide review pending Neut % (Auto) 65.3 Lymph % (Auto) 27.8 [place] % (Auto) 5.1 Eos % (Auto) 1.4 Baso % (Auto) 0.4 Neut # (Auto) 2.5 Lymph # (Auto) 1.1 [place] # (Auto) 0.2 Eos # (Auto) 0.1 Baso # (Auto) 0.0 WBC Differential . Diff Scan Auto diff confirmed Differential Comment . Platelet Estimate Normal Platelet Morphology Enlarged H Ovalocytes 1+ H Acanthocytes (Spur) Occ H Keratocytes Occ H Sodium 142 Potassium 3.5 Chloride 110 H Carbon Dioxide 26.0 Anion Gap 6 BUN 9 Creatinine 0.74 Estimated GFR Greater than 89 Random Glucose 147 H Calcium 8.2 L Total Bilirubin 0.1 L AST 9 L ALT 11 L Alkaline Phosphatase 73 Total Protein 6.4 Albumin 2.4 L Microbiology 04/12/18 07:15 Blood - Peripheral Aerobic Blood Culture - Preliminary No growth in 1 day 04/12/18 07:15 Blood - Peripheral Anaerobic Blood Culture - Preliminary No growth in 1 day 04/12/18 07:25 Blood - Peripheral Aerobic Blood Culture - Preliminary No growth in 1 day 04/12/18 07:25 Blood - Peripheral Anaerobic Blood Culture - Preliminary No growth in 1 day 04/09/18 00:15 Blood - Peripheral Aerobic Blood Culture - Final Corynebacterium not JK 04/09/18 00:15 Blood - Peripheral Anaerobic Blood Culture - Preliminary No growth in 4 days Assessment and Plan - Assessment (1) Encephalopathy Code(s): G93.40 - Encephalopathy, unspecified Status: Acute (2) UTI (urinary tract infection) Code(s): N39.0 - Urinary tract infection, site not specified Status: Acute (3) Legally blind Code(s): H54.8 - Legal blindness, as defined in [place] Status: Acute - Plan 73-year-old male admitted secondary to severe sepsis, UTI, and metabolic encephalopathy related to infection Enterococcus bacteremia Sepsis UTI -Appreciate ID input, discuss with Dr. Khan. Patient may need GI workup as outpatient if goals remain aggressive or if persistent bacteremia. Typically A. Viridans is seen in patients with mucositis. -Continue ceftriaxone vancomycin added to treatment -Blood culture positive for aerococcus viridans -UC + Providencia -Echo pending Metabolic encephalopathy secondary to Sepsis -Improving -Continue with abx History of bilateral AKA. Weakness Continue PT Discharge Planning SNF at discharge Continue to follow cultures, will contact family to obtain more past medical history.
[2018-04-14] MEDS: Sod Chloride 0.9% Inj 1,000 ML IV.CONT SCH ×2 (03:22→17:24)
[2018-04-14 09:41] LABS: Hematocrit 28.3 % (39.0-51.0); Hemoglobin 9.2 gm/dL (13.0-17.0); Mean Corpuscular HGB Conc 32.3 % (32.0-36.0); Mean Corpuscular Hemoglobin 28.8 pg (27.0-34.0); Mean Platelet Volume 10.6 fL (7.0-11.0); Platelet Count 178 th/mm3 (150-450); Red Blood Count 3.18 mil/mm3 (4.50-5.90); Red Cell Distribution Width 16.2 % (11.6-17.2); White Blood Count 4.5 th/mm3 (4.0-11.0)
[2018-04-14] MEDS: amLODIPine 10 MG Tablet PO SCH (11:59)
[2018-04-14] MEDS: Senna/Docusate Sodium 8.6/50 MG Tablet PO SCH ×2 (11:59→20:38)
[2018-04-14 14:47] LABS: Anion Gap 8 meq/L (5-15); Blood Urea Nitrogen 11 mg/dL (7-18); Calcium 8.2 mg/dL (8.5-10.1); Carbon Dioxide 24.1 meq/L (21.0-32.0); Chloride 108 meq/L (98-107); Glomerular Filtration Rate Greater Than 89 mL/min (>89); Glucose,Random 163 mg/dL (74-106); Potassium 3.5 meq/L (3.5-5.1); Sodium 140 meq/L (136-145)
[2018-04-14] MEDS ORDERED: Potassium Chloride 25 MEQ Effervescent Tablet PO ONE (15:46)
--- NOTE | 2018-04-14 16:12 | P.PN ---
Subjective Interval history: More awake and alert, cantankerous. Oriented to self and place. Has a very good appetite. Difficult to obtain ROS. Questioned about any blood in the stool, patient indicates he has not seen his bowel movements for many years. Physical Exam Vital signs: Vital Signs 04/13/18 20:00 04/13/18 20:07 04/14/18 00:00 Temperature 97.2 F L 97.4 F L Pulse Rate 55 L 61 49 L Respiratory Rate 17 18 Blood Pressure 160/77 H 166/77 H Pulse Oximetry 98 98 04/14/18 04:00 04/14/18 08:00 04/14/18 12:00 Temperature 97.3 F L 97.8 F Pulse Rate 56 L 55 L 56 L Respiratory Rate 18 22 Blood Pressure 188/87 H 180/81 H Pulse Oximetry 98 100 Intake & Output 04/13/18 04/14/18 04/14/18 18:59 06:59 18:59 Intake Total 1480 / 1480 1100 / 1100 Output Total 500 / 500 Balance 980 / 980 1100 / 1100 Intake: IV 1000 / 1000 1100 / 1100 NS Inj 1,000 ML @ 100 mls/hr IV 1000 / 1000 1000 / 1000 .CONT .Q10H [facility] Rx#:[id number] Rocephin Inj 1,000 MG In NS Inj 100 / 100 100 ML @ 200 mls/hr IV.SIG Q24H [facility] Rx#:[id number] Oral 480 / 480 Output: Urine 500 / 500 Other: # Voids 1 # Bowel Movements 0 Narrative: GENERAL: 73-year-old elderly male, appears older than stated age. NAD, A&Ox2 HEAD: Normocephalic. NECK: Supple, trachea midline. No lymphadenopathy. EYES: No scleral icterus. No injection or drainage. CARDIOVASCULAR: Regular rate and rhythm without murmurs, gallops, or rubs. RESPIRATORY: Breath sounds equal bilaterally. No accessory muscle use. GASTROINTESTINAL: Abdomen soft, non-tender, nondistended. MUSCULOSKELETAL: No cyanosis, or edema. Bilateral above-knee amputation SKIN: Warm and dry. NEURO: Awake, alert oriented 2. No focal deficits. - Urinary Catheter Management Indwelling Urethral Catheter Cath placed during this visit: no Results - Labs CBC & Chem 7: 04/14/18 08:07 04/14/18 13:48 Laboratory Results - last 24 hr 04/14/18 04/14/18 08:07 13:48 WBC 4.5 RBC 3.18 L Hgb 9.2 L Hct 28.3 L MCV 89.0 MCH 28.8 MCHC 32.3 RDW 16.2 Plt Count 178 MPV 10.6 Hematology Comments Sodium 140 Potassium 3.5 Chloride 108 H Carbon Dioxide 24.1 Anion Gap 8 BUN 11 Creatinine 0.70 Estimated GFR Greater than 89 Random Glucose 163 H Calcium 8.2 L Microbiology 04/12/18 07:15 Blood - Peripheral Aerobic Blood Culture - Preliminary No growth in 2 days 04/12/18 07:15 Blood - Peripheral Anaerobic Blood Culture - Preliminary No growth in 2 days 04/12/18 07:25 Blood - Peripheral Aerobic Blood Culture - Preliminary No growth in 2 days 04/12/18 07:25 Blood - Peripheral Anaerobic Blood Culture - Preliminary No growth in 2 days 04/09/18 00:15 Blood - Peripheral Aerobic Blood Culture - Final Corynebacterium not JK 04/09/18 00:15 Blood - Peripheral Anaerobic Blood Culture - Final No growth in 5 days Assessment and Plan - Assessment (1) Encephalopathy Code(s): G93.40 - Encephalopathy, unspecified Status: Acute (2) UTI (urinary tract infection) Code(s): N39.0 - Urinary tract infection, site not specified Status: Acute (3) Legally blind Code(s): H54.8 - Legal blindness, as defined in [place] Status: Acute (4) Anemia Code(s): D64.9 - Anemia, unspecified Status: Chronic (5) Bacteremia Code(s): R78.81 - Bacteremia Status: Acute - Plan 73-year-old male admitted secondary to severe sepsis, UTI, and metabolic encephalopathy related to infection Enterococcus bacteremia Sepsis UTI -Appreciate ID input, discuss with Dr. Khan. Patient may need GI workup as outpatient if goals remain aggressive or if persistent bacteremia. Typically A. Viridans is seen in patients with mucositis. -Continue ceftriaxone -Blood culture positive for aerococcus viridans -UC + Providencia -Blood cultures from 04/12 negative so far -Echo pending Metabolic encephalopathy secondary to Sepsis -EEG done, moderate encephalopathy. -Continue with abx -Improving, appears back to baseline. Anemia, etiology unclear. Hemoglobin 9.2 -Continue to monitor CBC We will obtain stool for occult blood History of bilateral AKA. Weakness -Continue PT Discharge Planning SNF at discharge, has been accepted at facility Continue to follow cultures, will obtain final ID recommendations. Possible discharge Thursday (4) Anemia Qualifiers: Anemia type: unspecified type Qualified Code(s): D64.9 - Anemia, unspecified
--- NOTE | 2018-04-14 18:06 | P.PNID ---
Subjective Remarks: is a 73-year-old legally blind male with past medical history significant for diabetes, peripheral vascular disease, cigarette smoking, status post bilateral above-knee amputations due to his PVD and recurrent infections. 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 Patient has had infections related to Enterococcus faecalis in the feet in the past. Patient has also had Morganella bacteremia in the past and was seen by infectious disease as late as 2017. Per review of records it appears that patient was brought to the ER by EMS for altered mental status. Per report, family members heard patient scream and found him unresponsive w/ arms stiff across his chest. Upon arrival to ER pt not answering questions or following commands. BP 122/84, HR 88, O2 sat 97% on RA, Afebrile. WBC 3.9. Hemoglobin 9.9. INR 1.1. Lactic Acid 3.6. Troponin negative. UA was significant UTI. CT Head w/ age-related atrophy and patient motion limiting exam. CXR with no acute findings. S/p Rocephin in ER. Per review of records, the patient basically lives a bed and wheelchair existence since his right AKA. He is assisted in taking care of himself by his niece Fariba. Infectious diseases consulted for evaluation and management of sepsis, enterococcal bacteremia. Past Medical History * Severe peripheral vascular disease * Left foot gangrene, infection * Non-salvageable left foot/leg * Diabetes * Long-term cigarette smoker * Hypertension * GERD * COPD * Blindness * Anemia * Neuropathy * Remote history of alcohol abuse * Anxiety, intermittent * Remote history of seizures . Past Surgical History * Right AKA * Left leg ORIF * Exploratory laparotomy for perforated viscus * Debridement of left foot: 16,17 * Overnight events reviewed No fevers No rash No diarrhea Mentation improved. Responds to simple Qs. Asks to be left alone when examining him. Antibiotics: Ceftriaxone IV Vanco IV Lines: Line sites ok Past Medical History: reviewed Allergies/Adverse Reactions: Allergies No Known Drug Allergies Allergy (Unknown, Verified 04/11/18 15:38) Unknown NKDA No Known Allergies Allergy (Unknown, Uncoded 04/09/18 00:11) unknown Objective Vital Signs 04/13/18 20:00 04/13/18 20:07 04/14/18 00:00 Temperature 97.2 F L 97.4 F L Pulse Rate 55 L 61 49 L Respiratory Rate 17 18 Blood Pressure 160/77 H 166/77 H Pulse Oximetry 98 98 04/14/18 04:00 04/14/18 08:00 04/14/18 12:00 Temperature 97.3 F L 97.8 F 98.0 F Pulse Rate 56 L 55 L 66 Respiratory Rate 18 22 22 Blood Pressure 188/87 H 180/81 H 156/84 H Pulse Oximetry 98 100 99 04/14/18 16:00 Temperature Pulse Rate 52 L Respiratory Rate Blood Pressure Pulse Oximetry Intake & Output 04/13/18 04/14/18 04/14/18 18:59 06:59 18:59 Intake Total 1480 / 1480 1100 / 1100 1000 / 1000 Output Total 500 / 500 Balance 980 / 980 1100 / 1100 1000 / 1000 Intake: IV 1000 / 1000 1100 / 1100 1000 / 1000 NS Inj 1,000 ML @ 100 mls/hr IV 1000 / 1000 1000 / 1000 1000 / 1000 .CONT .Q10H [facility] Rx#:[id number] Rocephin Inj 1,000 MG In NS Inj 100 / 100 100 ML @ 200 mls/hr IV.SIG Q24H [facility] Rx#:[id number] Oral 480 / 480 Output: Urine 500 / 500 Other: # Voids 1 # Bowel Movements 0 04/12/18 07:15 Blood - Peripheral Aerobic Blood Culture - Preliminary No growth in 2 days 04/12/18 07:15 Blood - Peripheral Anaerobic Blood Culture - Preliminary No growth in 2 days 04/12/18 07:25 Blood - Peripheral Aerobic Blood Culture - Preliminary No growth in 2 days 04/12/18 07:25 Blood - Peripheral Anaerobic Blood Culture - Preliminary No growth in 2 days 04/09/18 00:15 Blood - Peripheral Aerobic Blood Culture - Final Corynebacterium not JK 04/09/18 00:15 Blood - Peripheral Anaerobic Blood Culture - Final No growth in 5 days 04/09/18 00:20 Blood - Peripheral Aerobic Blood Culture - Final Aerococcus viridans Staphylococcus coag negative 04/09/18 00:20 Blood - Peripheral Anaerobic Blood Culture - Final Aerococcus viridans Lab - Hematology Results 04/13/18 04/14/18 13:48 08:07 WBC 3.9 L 4.5 RBC 2.88 L 3.18 L Hgb 8.5 L 9.2 L Hct 25.5 L 28.3 L MCV 88.2 89.0 MCH 29.5 28.8 MCHC 33.4 32.3 RDW 16.6 16.2 Plt Count 185 178 MPV 10.3 10.6 Prelim Diff (Auto) Slide review pending Neut % (Auto) 65.3 Lymph % (Auto) 27.8 Shoshone % (Auto) 5.1 Eos % (Auto) 1.4 Baso % (Auto) 0.4 Neut # (Auto) 2.5 Lymph # (Auto) 1.1 Shoshone # (Auto) 0.2 Eos # (Auto) 0.1 Baso # (Auto) 0.0 WBC Differential . Diff Scan Auto diff confirmed Differential Comment . Platelet Estimate Normal Platelet Morphology Enlarged H Ovalocytes 1+ H Acanthocytes (Spur) Occ H Keratocytes Occ H Hematology Comments Lab - Chemistry Results 04/13/18 04/14/18 13:40 13:48 Sodium 142 140 Potassium 3.5 3.5 Chloride 110 H 108 H Carbon Dioxide 26.0 24.1 Anion Gap 6 8 BUN 9 11 Creatinine 0.74 0.70 Estimated GFR Greater than 89 Greater than 89 Random Glucose 147 H 163 H Calcium 8.2 L 8.2 L Total Bilirubin 0.1 L AST 9 L ALT 11 L Alkaline Phosphatase 73 Total Protein 6.4 Albumin 2.4 L Imaging: ITS Impressions Chest X-Ray 04/09/18 00:08 CONCLUSION: No acute cardiopulmonary abnormality. Head CT 04/09/18 00:08 CONCLUSION: 1. Age-related atrophy. 2. Patient motion blurring limiting the examination. . Physical Exam: GENERAL: Well-nourished well-developed, not in acute distress SKIN: Cool and dry, no generalized rash HEAD: Atraumatic. Normocephalic. No temporal or scalp tenderness. EYES: Pupils equal round and reactive. Scleral icterus. No injection or drainage. No petechia ENT: Nothing abnormal detected NECK: Trachea midline. Supple, nontender, no meningeal signs. CARDIOVASCULAR: HS audible. RESPIRATORY: Clear to auscultation bilaterally. GASTROINTESTINAL: Abdomen soft nontender. MUSCULOSKELETAL: Bilateral above-knee amputation sites with no evidence of infection. NEUROLOGICAL: Alert oriented 3. Nonfocal. Psych cooperative IV line sites ok. Assessment and Plan - Plan Aeromonas viridans bacteremia Providentia UTI Acute metabolic encephalopathy: ? Infection versus baseline dementia Diabetes with history of neuropathy COPD History of seizure disorder per review of old records Recommendations Continue ceftriaxone IV for covers aeromonas viridans and Providencia UTI. Await 2D ECHO report to decide length of treatment and type of line (PICC vs Midline) Follow cultures Follow clinically Ritchie ANGLIN
[2018-04-15] MEDS: Sod Chloride 0.9% Inj 1,000 ML IV.CONT SCH ×2 (02:27→13:52)
--- NOTE | 2018-04-15 12:45 | P.PN ---
Subjective Interval history: awake, oriented x 2. Wants to drink coffee, has no complaints when asked. No pain. No acute changes overnight. No fever Physical Exam Vital signs: Vital Signs 04/14/18 16:00 04/14/18 18:00 04/14/18 20:00 Temperature 98.1 F 97.3 F L Pulse Rate 52 L 64 55 L Respiratory Rate 20 16 Blood Pressure 142/74 H 122/58 L Pulse Oximetry 99 99 04/15/18 00:00 04/15/18 04:00 04/15/18 08:00 Temperature 97.5 F L 97.4 F L 97.4 F L Pulse Rate 64 48 L 52 L Respiratory Rate 16 16 18 Blood Pressure 144/67 H 164/75 H 169/75 H Pulse Oximetry 99 100 99 Intake & Output 04/14/18 04/15/18 04/15/18 18:59 06:59 18:59 Intake Total 1380 / 1380 1460 / 1460 Output Total 500 / 500 Balance 1380 / 1380 960 / 960 Weight 60.3 kg Intake: IV 1000 / 1000 1100 / 1100 NS Inj 1,000 ML @ 100 mls/hr IV 1000 / 1000 1000 / 1000 .CONT .Q10H [facility] Rx#:[id number] Rocephin Inj 1,000 MG In NS Inj 100 / 100 100 ML @ 200 mls/hr IV.SIG Q24H [facility] Rx#:[id number] Oral 380 / 380 360 / 360 Output: Urine 500 / 500 Other: # Voids 6 2 # Bowel Movements 2 0 Narrative: GENERAL: 73-year-old elderly male, appears older than stated age. NAD, A&Ox2 HEAD: Normocephalic. NECK: Supple, trachea midline. No lymphadenopathy. EYES: No scleral icterus. No injection or drainage. CARDIOVASCULAR: Regular rate and rhythm without murmurs, gallops, or rubs. RESPIRATORY: Breath sounds equal bilaterally. No accessory muscle use. GASTROINTESTINAL: Abdomen soft, non-tender, nondistended. MUSCULOSKELETAL: No cyanosis, or edema. Bilateral above-knee amputation SKIN: Warm and dry. NEURO: Awake, alert oriented 2. No focal deficits. - Urinary Catheter Management Indwelling Urethral Catheter Cath placed during this visit: no Results - Labs CBC & Chem 7: 04/14/18 08:07 04/14/18 13:48 Laboratory Results - last 24 hr 04/14/18 13:48 Sodium 140 Potassium 3.5 Chloride 108 H Carbon Dioxide 24.1 Anion Gap 8 BUN 11 Creatinine 0.70 Estimated GFR Greater than 89 Random Glucose 163 H Calcium 8.2 L Microbiology 04/12/18 07:15 Blood - Peripheral Aerobic Blood Culture - Preliminary No growth in 3 days 04/12/18 07:15 Blood - Peripheral Anaerobic Blood Culture - Preliminary No growth in 3 days 04/12/18 07:25 Blood - Peripheral Aerobic Blood Culture - Preliminary No growth in 3 days 04/12/18 07:25 Blood - Peripheral Anaerobic Blood Culture - Preliminary No growth in 3 days 04/09/18 00:15 Blood - Peripheral Aerobic Blood Culture - Final Corynebacterium not JK 04/09/18 00:15 Blood - Peripheral Anaerobic Blood Culture - Final No growth in 5 days Assessment and Plan - Assessment (1) Encephalopathy Code(s): G93.40 - Encephalopathy, unspecified Status: Acute (2) UTI (urinary tract infection) Code(s): N39.0 - Urinary tract infection, site not specified Status: Acute (3) Legally blind Code(s): H54.8 - Legal blindness, as defined in [place] Status: Acute (4) Anemia Code(s): D64.9 - Anemia, unspecified Status: Chronic (5) Bacteremia Code(s): R78.81 - Bacteremia Status: Acute - Plan 73-year-old male admitted secondary to severe sepsis, UTI, and metabolic encephalopathy related to infection Enterococcus bacteremia Sepsis UTI -Appreciate ID input, discuss with Dr. Khan. Patient may need GI workup as outpatient if goals remain aggressive or if persistent bacteremia. Typically A. Viridans is seen in patients with mucositis. -Continue ceftriaxone -Blood culture positive for aerococcus viridans -UC + Providencia -Blood cultures from 04/12 negative so far -Echo pending -We will wait for echo before ordering PICC line. Will need final recommendations from infectious disease. Metabolic encephalopathy secondary to Sepsis -EEG done, moderate encephalopathy. -Continue with abx -Improving, appears back to baseline. Anemia, etiology unclear. Hemoglobin 9.2 -Continue to monitor CBC We will obtain stool for occult blood-pending -No active bleeding, H&H stable History of bilateral AKA. Weakness -Continue PT Discharge Planning SNF at discharge, has been accepted at facility Continue to follow cultures, will obtain final ID recommendations. Possible discharge Thursday (4) Anemia Qualifiers: Anemia type: unspecified type Qualified Code(s): D64.9 - Anemia, unspecified
[2018-04-15] MEDS: amLODIPine 10 MG Tablet PO SCH (13:47)
[2018-04-15] MEDS: Senna/Docusate Sodium 8.6/50 MG Tablet PO SCH ×2 (13:47→21:20)
--- NOTE | 2018-04-15 17:01 | ECHRPT ---
Indication: sepsis CONCLUSIONS The left ventricular systolic function is hyperdynamic with an estimated ejection fraction in the ra nge of 65- 70%. Normal left ventricular size. Wall thickness is normal. No regional wall motion abnormalities are present. Calcification of the non-coronary cusp. There is trace tricuspid valve regurgitation. Normal estimated pulmonary pressures. There is trace pericardial effusion. BP: / HR: Rhythm: Sinus Technical Quality:Good FINDINGS LEFT VENTRICLE The left ventricular systolic function is hyperdynamic with an estimated ejection fraction in the ra nge of 65- 70%. Normal left ventricular size. Wall thickness is normal. No regional wall motion abnormalities are present. RIGHT VENTRICLE Normal right ventricular size and systolic function. LEFT ATRIUM The left atrial size is normal. RIGHT ATRIUM The right atrial size is normal. ATRIAL SEPTUM Normal atrial septal thickness without atrial level shunting by limited color doppler interrogation. AORTA The aortic root and proximal ascending aorta are normal in size on limited imaging. MITRAL VALVE Structurally normal mitral valve. No mitral valve stenosis or regurgitation. AORTIC VALVE Trileaflet aortic valve. Calcification of the non-coronary cusp. TRICUSPID VALVE Structurally normal tricuspid valve. There is trace tricuspid valve regurgitation. Normal estimated pulmonary pressures. PULMONARY VALVE The pulmonary valve is not well visualized. VESSELS The inferior vena cava is normal in size. PERICARDIUM There is trace pericardial effusion. Madhu Bailey MD, FACC (Electronically Signed) Final Date:15 April 2018 17:00
[2018-04-16] MEDS: amLODIPine 10 MG Tablet PO SCH (08:34)
[2018-04-16] MEDS: Senna/Docusate Sodium 8.6/50 MG Tablet PO SCH ×2 (08:34→20:33)
--- NOTE | 2018-04-16 11:51 | P.PN ---
Subjective Interval history: awake, oriented x 2. Cantankerous, pleasant. Forgetful at times but overall understands he is in hospital, not sure why. C/O back pain, chronic. Niece/ caregiver at [facility]. States pt. has 7 children and none have contact with him. She has been providing care for him for many year and feels she can no longer care for him. Physical Exam Vital signs: Vital Signs 04/15/18 12:00 04/15/18 16:00 04/15/18 20:00 Temperature 97.3 F L 97.8 F 97.7 F Pulse Rate 77 58 L 65 Respiratory Rate 18 18 18 Blood Pressure 119/57 L 160/75 H 143/66 H Pulse Oximetry 99 99 99 04/15/18 23:53 04/16/18 00:00 04/16/18 04:00 Temperature 97.5 F L 97.8 F Pulse Rate 54 L 64 61 Respiratory Rate 18 18 Blood Pressure 156/72 H 148/69 H Pulse Oximetry 99 99 04/16/18 08:00 Temperature 98 F Pulse Rate 52 L Respiratory Rate 17 Blood Pressure 167/81 H Pulse Oximetry 100 Intake & Output 04/15/18 04/16/18 04/16/18 18:59 06:59 18:59 Intake Total 1296 / 1296 340 / 340 Output Total 500 / 500 1800 / 1800 Balance 796 / 796 -1460 / -1460 Weight 61.5 kg Intake: IV 200 / 200 100 / 100 NS Inj 1,000 ML @ 100 mls/hr IV 200 / 200 .CONT .Q10H [facility] Rx#:[id number] Rocephin Inj 1,000 MG In NS Inj 100 / 100 100 ML @ 200 mls/hr IV.SIG Q24H [facility] Rx#:[id number] Oral 1096 / 1096 240 / 240 Output: Urine 500 / 500 1800 / 1800 Other: # Voids 2 # Incontinent Voids 1 # Bowel Movements 0 0 Narrative: GENERAL: 73-year-old elderly male, appears older than stated age. NAD, A&Ox2 HEAD: Normocephalic. NECK: Supple, trachea midline. No lymphadenopathy. EYES: No scleral icterus. No injection or drainage. CARDIOVASCULAR: Regular rate and rhythm without murmurs, gallops, or rubs. RESPIRATORY: Breath sounds equal bilaterally. No accessory muscle use. GASTROINTESTINAL: Abdomen soft, non-tender, nondistended. MUSCULOSKELETAL: No cyanosis, or edema. Bilateral above-knee amputation SKIN: Warm and dry. NEURO: Awake, alert oriented 2. No focal deficits. - Urinary Catheter Management Indwelling Urethral Catheter Cath placed during this visit: no Results - Labs CBC & Chem 7: 04/14/18 08:07 04/14/18 13:48 Microbiology 04/12/18 07:15 Blood - Peripheral Aerobic Blood Culture - Preliminary No growth in 4 days 04/12/18 07:15 Blood - Peripheral Anaerobic Blood Culture - Preliminary No growth in 4 days 04/12/18 07:25 Blood - Peripheral Aerobic Blood Culture - Preliminary No growth in 4 days 04/12/18 07:25 Blood - Peripheral Anaerobic Blood Culture - Preliminary No growth in 4 days Assessment and Plan - Assessment (1) Encephalopathy Code(s): G93.40 - Encephalopathy, unspecified Status: Acute (2) UTI (urinary tract infection) Code(s): N39.0 - Urinary tract infection, site not specified Status: Acute (3) Legally blind Code(s): H54.8 - Legal blindness, as defined in [place] Status: Acute (4) Anemia Code(s): D64.9 - Anemia, unspecified Status: Chronic (5) Bacteremia Code(s): R78.81 - Bacteremia Status: Acute - Plan 73-year-old male admitted secondary to severe sepsis, UTI, and metabolic encephalopathy related to infection Enterococcus bacteremia Sepsis UTI -Appreciate ID input, discuss with Dr. Khan. Patient may need GI workup as outpatient if goals remain aggressive or if persistent bacteremia. Typically A. Viridans is seen in patients with mucositis. -Continue ceftriaxone -Blood culture positive for aerococcus viridans -UC + Providencia -Blood cultures from 04/12 negative so far -Echo done EF 65-70% no vegetation -PICC line has been ordered. DC abx per ID pending Metabolic encephalopathy secondary to Sepsis -EEG done, moderate encephalopathy. -Continue with abx -Improving, appears back to baseline. Anemia, etiology unclear. Hemoglobin 9.2 -Continue to monitor CBC stool OB pending -No active bleeding, H&H stable -per niece, had previous GI work up, poss 2013. No acute findings that she can recall. History of bilateral AKA. Weakness -Continue PT D/W niece who is caregiver, pt. has been under her care since 2003. She can't care for him anymore as she can't physically provide for him. He has children who have no contact with him. She is looking for short-term SNF and eventually transition him to long-term care. She will follow-up with case management at SNF to arrange this. Discharge Planning-has a bed at SNF Poss dc today (4) Anemia Qualifiers: Anemia type: unspecified type Qualified Code(s): D64.9 - Anemia, unspecified
--- NOTE | 2018-04-16 15:09 | P.DCO ---
Post Hospital Infusion Therapy Location of Infusion Therapy: [facility] Infusion Therapy Order Patient Weight: 61.5 kg - Diagnosis (1) Severe sepsis Code(s): A41.9 - Sepsis, unspecified organism; R65.20 - Severe sepsis without septic shock (2) Bacteremia Code(s): R78.81 - Bacteremia - Administer Medication Ceftriaxone Dose: 2 grams IV Directions: q 24 hours Start Treatment: 04/16/18 Stop Treatment: 04/27/18 - Additional Information Venous Access: Other (Midline) Additional Instructions: [x] Peripheral flush and dressing changes per protocol [x] Implanted port and central commercial lines account executive: * Implanted port: 10 ml Normal Saline followed by 5 ml Heparin 100 units/ml Heparin flush after each use and monthly to maintain. [] May leave port accessed during therapy. [] May leave peripheral site accessed for duration of therapy. [x] If patient has SOB or respiratory distress, check oxygen saturation. If less than 90% or clinical signs of respiratory distress, administer oxygen at 2 L/min. via nasal cannula and notify physician. [x] Anaphylaxis/Reaction orders: * Stop infusion. * Keep IV line open with saline flush. * Notify physician. * Monitor vital signs every 15 minutes until symptoms resolve. * Check Oxygen saturation; Oxygen at 2 L/min. via nasal cannula if less than 90% or clinical signs of respiratory distress. * Administer diphenhydramine (Benadryl) 25 mg IV STAT, (unless patient has received as pre-med). May repeat once, if necessary. * Solu-Cortef 250 mg IVP over 30-60 seconds, use 100 mg vials for each dissolution. * Epinephrine (1mg/1 ml) 0.3 mg subcutaneously or IVP now with any signs of respiratory distress. * Check with physician for new additional pre-med orders if patient is re- challenged or re-treated. [x] May remove PICC line when treatment complete, after confirming with Physician. [x] If the patient is admitted to the hospital, the ED, or transferred via [facility] , complete transfer form including medication reconciliation order sheet. Weekly Labs: CBC w/diff, Creatinine, CRP, LFTs (Hepatic Function Test) Case Management Consult: Yes Additional Information: Please call in or fax labs to the [facility] physician. Allergies No Known Drug Allergies Allergy (Unknown, Verified 04/11/18 15:38) Unknown NKDA No Known Allergies Allergy (Unknown, Uncoded 04/09/18 00:11) unknown
--- NOTE | 2018-04-16 15:14 | P.PNID ---
Subjective Remarks: is a 73-year-old legally blind male with past medical history significant for diabetes, peripheral vascular disease, cigarette smoking, status post bilateral above-knee amputations due to his PVD and recurrent infections. 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 Patient has had infections related to Enterococcus faecalis in the feet in the past. Patient has also had Morganella bacteremia in the past and was seen by infectious disease as late as 2017. Per review of records it appears that patient was brought to the ER by EMS for altered mental status. Per report, family members heard patient scream and found him unresponsive w/ arms stiff across his chest. Upon arrival to ER pt not answering questions or following commands. BP 122/84, HR 88, O2 sat 97% on RA, Afebrile. WBC 3.9. Hemoglobin 9.9. INR 1.1. Lactic Acid 3.6. Troponin negative. UA was significant UTI. CT Head w/ age-related atrophy and patient motion limiting exam. CXR with no acute findings. S/p Rocephin in ER. Per review of records, the patient basically lives a bed and wheelchair existence since his right AKA. He is assisted in taking care of himself by his niece Fariba. Infectious diseases consulted for evaluation and management of sepsis, enterococcal bacteremia. Past Medical History * Severe peripheral vascular disease * Left foot gangrene, infection * Non-salvageable left foot/leg * Diabetes * Long-term cigarette smoker * Hypertension * GERD * COPD * Blindness * Anemia * Neuropathy * Remote history of alcohol abuse * Anxiety, intermittent * Remote history of seizures . Past Surgical History * Right AKA * Left leg ORIF * Exploratory laparotomy for perforated viscus * Debridement of left foot: 16,17 * Overnight events reviewed No fevers No rash No diarrhea Mentation improved. Responds to simple Qs. Antibiotics: Ceftriaxone IV Vanco IV Lines: Line sites ok Past Medical History: reviewed Allergies/Adverse Reactions: Allergies No Known Drug Allergies Allergy (Unknown, Verified 04/11/18 15:38) Unknown NKDA No Known Allergies Allergy (Unknown, Uncoded 04/09/18 00:11) unknown Objective Vital Signs 04/15/18 16:00 04/15/18 20:00 04/15/18 23:53 Temperature 97.8 F 97.7 F 97.5 F L Pulse Rate 58 L 65 54 L Respiratory Rate 18 18 18 Blood Pressure 160/75 H 143/66 H 156/72 H Pulse Oximetry 99 99 99 04/16/18 00:00 04/16/18 04:00 04/16/18 08:00 Temperature 97.8 F 98 F Pulse Rate 64 61 52 L Respiratory Rate 18 17 Blood Pressure 148/69 H 167/81 H Pulse Oximetry 99 100 Intake & Output 04/15/18 04/16/18 04/16/18 18:59 06:59 18:59 Intake Total 1296 / 1296 340 / 340 Output Total 500 / 500 1800 / 1800 Balance 796 / 796 -1460 / -1460 Weight 61.5 kg 61.5 kg Intake: IV 200 / 200 100 / 100 NS Inj 1,000 ML @ 100 mls/hr IV 200 / 200 .CONT .Q10H [facility] Rx#:[id number] Rocephin Inj 1,000 MG In NS Inj 100 / 100 100 ML @ 200 mls/hr IV.SIG Q24H [facility] Rx#:[id number] Oral 1096 / 1096 240 / 240 Output: Urine 500 / 500 1800 / 1800 Other: # Voids 2 # Incontinent Voids 1 # Bowel Movements 0 0 04/12/18 07:15 Blood - Peripheral Aerobic Blood Culture - Preliminary No growth in 4 days 04/12/18 07:15 Blood - Peripheral Anaerobic Blood Culture - Preliminary No growth in 4 days 04/12/18 07:25 Blood - Peripheral Aerobic Blood Culture - Preliminary No growth in 4 days 04/12/18 07:25 Blood - Peripheral Anaerobic Blood Culture - Preliminary No growth in 4 days 04/09/18 00:15 Blood - Peripheral Aerobic Blood Culture - Final Corynebacterium not JK 04/09/18 00:15 Blood - Peripheral Anaerobic Blood Culture - Final No growth in 5 days Imaging: ITS Impressions Chest X-Ray 04/09/18 00:08 CONCLUSION: No acute cardiopulmonary abnormality. Head CT 04/09/18 00:08 CONCLUSION: 1. Age-related atrophy. 2. Patient motion blurring limiting the examination. . Physical Exam: GENERAL: Well-nourished well-developed, not in acute distress SKIN: Cool and dry, no generalized rash HEAD: Atraumatic. Normocephalic. No temporal or scalp tenderness. EYES: Pupils equal round and reactive. Scleral icterus. No injection or drainage. No petechia ENT: Nothing abnormal detected NECK: Trachea midline. Supple, nontender, no meningeal signs. CARDIOVASCULAR: HS audible. RESPIRATORY: Clear to auscultation bilaterally. GASTROINTESTINAL: Abdomen soft nontender. MUSCULOSKELETAL: Bilateral above-knee amputation sites with no evidence of infection. NEUROLOGICAL: Alert oriented 3. Nonfocal. Psych cooperative IV line sites ok. Assessment and Plan (1) Severe sepsis Status: Acute Code(s): A41.9 - Sepsis, unspecified organism; R65.20 - Severe sepsis without septic shock (2) Bacteremia Status: Acute Code(s): R78.81 - Bacteremia - Plan Aeromonas viridans bacteremia Providentia UTI Acute metabolic encephalopathy: ? Infection versus baseline dementia Diabetes with history of neuropathy COPD History of seizure disorder per review of old records Recommendations Continue ceftriaxone IV for covers aeromonas viridans and Providencia UTI. 2D ECHO negative. Follow cultures Follow clinically Ritchie ANGLIN
[2018-04-17] MEDS: amLODIPine 10 MG Tablet PO SCH (08:07)
[2018-04-17] MEDS: Senna/Docusate Sodium 8.6/50 MG Tablet PO SCH (08:08)
--- NOTE | 2018-04-17 08:26 | P.DS ---
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 Pt unable to provide much history, history obtained from chart/ records. Per report, family members heard patient scream and found him unresponsive w/ arms stiff across his chest. Upon arrival to ER pt not answering questions or following commands. BP 122/84, HR 88, O2 sat 97% on RA, Afebrile. WBC 3.9. Hemoglobin 9.9. INR 1.1. Lactic Acid 3.6. Troponin negative. UA was significant UTI. CT Head w/ age-related atrophy and patient motion limiting exam. CXR with no acute findings. S/p Rocephin in ER. DS: Diagnosis - Discharge Diagnosis (1) Encephalopathy Status: Acute (2) UTI (urinary tract infection) Status: Acute (3) Legally blind Status: Acute (4) Anemia Status: Chronic (5) Bacteremia Status: Acute DS: Medications - Discharge Medications Prescriptions: ceftriaxone 2 g IV Q24H 10 Days each DS: Summary Hospital Course: This is a 73-year-old legally blind male with unknown PMH is brought to the ER by EMS for AMS. Pt unable to provide much history, history obtained from chart/ records. Per report, family members heard patient scream and found him unresponsive w/ arms stiff across his chest. Upon arrival to ER pt not answering questions or following commands. BP 122/84, HR 88, O2 sat 97% on RA, Afebrile. WBC 3.9. Hemoglobin 9.9. INR 1.1. Lactic Acid 3.6. Troponin negative. UA was significant UTI. CT Head w/ age-related atrophy and patient motion limiting exam. CXR with no acute findings. S/p Rocephin in ER. Pt. admitted for severe sepsis, UTI, and metabolic encephalopathy related to infection. Blood culture positive for aerococcus viridans and UC + Providencia. Patient continue empiric antibiotics and IV fluids. Infectious disease was consulted. Antibiotics adjusted per cultures. Echo was done, EF 65-70, no vegetation. EEG was done, show moderate encephalopathy. Mentation improved, back to baseline. Patient tolerated antibiotics well. No fever, hemodynamically stable. He was noted anemic, hemoglobin around 9. No active bleeding. Per patient's caregiver, patient had previous GI workup, no acute findings that she could recall. 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 Physical therapy worked with patient. Discharge plan was discussed with patient's niece who agreed to SNF placement. Infectious disease recommended IV antibiotics. PICC line was placed. Case management consulted to assist with discharge planning. Patient was discharged in stable condition. - Time Spent with Patient Total time spent providing and/or coordinating discharge services:35 minutes Greater than 30 minutes - Quality: VTE Deep Vein Thrombosis/Pulmonary Embolism Present on Admission: No Exam Vital signs: Vital Signs 04/16/18 12:00 04/16/18 16:00 04/16/18 20:00 Temperature 97.9 F 97.4 F L 97.3 F L Pulse Rate 52 L 56 L 76 Respiratory Rate 18 18 18 Blood Pressure 126/64 150/69 H 142/69 H Pulse Oximetry 99 99 100 04/17/18 00:00 04/17/18 04:00 Temperature 98.1 F 97.8 F Pulse Rate 50 L 53 L Respiratory Rate 18 18 Blood Pressure 168/77 H 160/76 H Pulse Oximetry 98 100 Intake & Output 04/16/18 04/17/18 04/17/18 18:59 06:59 18:59 Intake Total 720 / 720 100 / 100 Output Total 1400 / 1400 500 / 500 Balance -680 / -680 -400 / -400 Weight 61.5 kg 58.3 kg Intake: IV 100 / 100 Rocephin Inj 1,000 MG In NS Inj 100 / 100 100 ML @ 200 mls/hr IV.SIG Q24H SALOMON Rx#:[id number] Oral 720 / 720 Output: Urine 1400 / 1400 500 / 500 Other: # Voids 2 Date of Last Bowel Movement 04/13/18 Results Procedures completed during hospitalization: none Labs on day of discharge: Preliminary micro results at discharge 04/12/18 07:15 Aerobic Blood Culture - Preliminary Blood - Peripheral No growth in 4 days Anaerobic Blood Culture - Preliminary No growth in 4 days 04/12/18 07:25 Aerobic Blood Culture - Preliminary Blood - Peripheral No growth in 4 days Anaerobic Blood Culture - Preliminary No growth in 4 days - Impressions ITS Impressions Chest X-Ray 04/09/18 00:08 CONCLUSION: No acute cardiopulmonary abnormality. Head CT 04/09/18 00:08 CONCLUSION: 1. Age-related atrophy. 2. Patient motion blurring limiting the examination. . Discharge Plan - Discharge Disposition Patient Disposition: 03 Discharge to SNF - Discharge Condition Condition: Stable - Discharge Order Discharge Orders: Discharge Order (Routine); Ordered 04/16/18 Ordered By: Lorrie Melton - Discharge Details Anticipated Discharge Date: 04/16/18 - Physicians Team Primary Care Provider: Jonathan Loaiza V Attending Provider: Huber Garcia Other Providers: Isabella Khan MD ; [facility],Agency ; [facility],Agency
[2018-04-17 09:21] VITALS: RESP 16
[2018-04-17 13:35] VITALS: BP 131/66; TEMP 97.7; O2SAT 100
--- NOTE | 2018-04-17 13:36 | P.PN ---
Subjective Interval history: follow up for AMS, sepsis. Pt.'s dc held, pulled IV out and then refused PICC. Attempted this morning again and he refused. POA called and she agreed. Spoke to pt. he is agreeable, now. Pt. cantankerous at times, and forgetful. No fever overnight. No acute changes. PICC RN came back and inserted without any difficulty. Physical Exam Vital signs: Vital Signs 04/16/18 16:00 04/16/18 20:00 04/17/18 00:00 Temperature 97.4 F L 97.3 F L 98.1 F Pulse Rate 56 L 76 50 L Respiratory Rate 18 18 18 Blood Pressure 150/69 H 142/69 H 168/77 H Pulse Oximetry 99 100 98 04/17/18 04:00 04/17/18 08:00 Temperature 97.8 F 98.0 F Pulse Rate 53 L 51 L Respiratory Rate 18 16 Blood Pressure 160/76 H 174/79 H Pulse Oximetry 100 98 Intake & Output 04/16/18 04/17/18 04/17/18 18:59 06:59 18:59 Intake Total 720 / 720 100 / 100 Output Total 1400 / 1400 500 / 500 Balance -680 / -680 -400 / -400 Weight 61.5 kg 58.3 kg Intake: IV 100 / 100 Rocephin Inj 1,000 MG In NS Inj 100 / 100 100 ML @ 200 mls/hr IV.SIG Q24H [facility] Rx#:[id number] Oral 720 / 720 Output: Urine 1400 / 1400 500 / 500 Other: # Voids 2 Date of Last Bowel Movement 04/13/18 Narrative: GENERAL: 73-year-old elderly male, appears older than stated age. NAD, A&Ox2 HEAD: Normocephalic. NECK: Supple, trachea midline. No lymphadenopathy. EYES: No scleral icterus. No injection or drainage. CARDIOVASCULAR: Regular rate and rhythm without murmurs, gallops, or rubs. RESPIRATORY: Breath sounds equal bilaterally. No accessory muscle use. GASTROINTESTINAL: Abdomen soft, non-tender, nondistended. MUSCULOSKELETAL: No cyanosis, or edema. Bilateral above-knee amputation SKIN: Warm and dry. NEURO: Awake, alert oriented 2. No focal deficits. - Urinary Catheter Management Indwelling Urethral Catheter Cath placed during this visit: no Results - Labs CBC & Chem 7: 04/14/18 08:07 04/14/18 13:48 Microbiology 04/12/18 07:15 Blood - Peripheral Aerobic Blood Culture - Final No growth in 5 days 04/12/18 07:15 Blood - Peripheral Anaerobic Blood Culture - Final No growth in 5 days 04/12/18 07:25 Blood - Peripheral Aerobic Blood Culture - Final No growth in 5 days 04/12/18 07:25 Blood - Peripheral Anaerobic Blood Culture - Final No growth in 5 days - Procedures none Assessment and Plan - Assessment (1) Encephalopathy Code(s): G93.40 - Encephalopathy, unspecified Status: Acute (2) UTI (urinary tract infection) Code(s): N39.0 - Urinary tract infection, site not specified Status: Acute (3) Legally blind Code(s): H54.8 - Legal blindness, as defined in [place] Status: Acute (4) Anemia Code(s): D64.9 - Anemia, unspecified Status: Chronic (5) Bacteremia Code(s): R78.81 - Bacteremia Status: Acute - Plan 73-year-old male admitted secondary to severe sepsis, UTI, and metabolic encephalopathy related to infection Enterococcus bacteremia Sepsis UTI -Appreciate ID input, discuss with Dr. Khan. Patient may need GI workup as outpatient if goals remain aggressive or if persistent bacteremia. Typically A. Viridans is seen in patients with mucositis. -Continue ceftriaxone -Blood culture positive for aerococcus viridans -UC + Providencia -Blood cultures from 04/12 negative so far -Echo done EF 65-70% no vegetation -PICC in place now -Per ID, continue abx x 10 days Metabolic encephalopathy secondary to Sepsis -EEG done, moderate encephalopathy. -Continue with abx -Improving, appears back to baseline. Anemia, etiology unclear. Hemoglobin 9.2 -Continue to monitor CBC stool OB pending -No active bleeding, H&H stable -per niece, had previous GI work up, poss 2013. No acute findings that she can recall. History of bilateral AKA. Weakness -Continue PT Patient was not discharged yesterday as planned, he refused PICC line however he just agreed. PICC line inserted. Case management to contact SNF facility to discharge patient today Continue with IV antibiotics for 10 days Follow-up with PCP in 1 week Diet heart healthy Activity as tolerated Discussed with RN, patient, CM (4) Anemia Qualifiers: Anemia type: unspecified type Qualified Code(s): D64.9 - Anemia, unspecified
[2018-04-17 14:31] VITALS: PULSE 73
== END 2018-04-17 15:37 ==
LOC: NEPC 23:58 → NEDA 23:58 → NEPHCDU 04-09 07:39 → N04 04-13 02:36
PROVIDERS: ADMIT Hospitalist; ATTEND Hospitalist

== ENCOUNTER 2018-05-22 04:36 | Observation (INO) ==
--- NOTE | 2018-05-22 06:45 | ED ---
HPI General Chief Complaint: Seizure Stated Complaint: Pos Seizure Time Seen by Provider: 05/22/18 06:26 Source: patient Mode of arrival: ambulatory Limitations: no limitations History of Present Illness HPI Narrative: 73-year-old male was brought in from the care home for reported seizure. longterm personnel reported patient had seizure last night. longterm paperwork reported patient has history of seizure in the past. Patient has history of encephalopathy and unable to provide any information. No reported fever and care home. No reported injury and care home. No information regarding the seizure available to [facility] care providers. complaint: seizure Onset (ago): hour(s) Witnessed: yes - by other Trauma: No Seizure History: known seizure disorder Place: other Possible Precipitating Event: none Associated symptoms: denies other symptoms Treatments prior to arrival: none Related Data Home Medications Medication Instructions Recorded Confirmed fentanyl 1 patch TRANSDERMAL Q72H 05/22/18 05/22/18 gabapentin 300 mg PO BID 05/22/18 05/22/18 Previous Rx's Medication Instructions Recorded acetaminophen 650 mg PO Q4H PRN tab 04/16/18 amlodipine [Norvasc] 10 mg PO DAILY tab 04/16/18 clonidine HCl [Catapres] 0.1 mg PO Q6H PRN tab 04/16/18 hydralazine 25 mg PO TID PRN tab 04/16/18 Allergies Allergy/AdvReac Type Severity Reaction Status Date / Time No Known Allergies Allergy Verified 05/22/18 04:47 Review of Systems ROS Unobtainable ROS Unobtainable: unobtainable due to mental status PMFSH Medical History Medical History Constipation (Acute) Anemia (Acute) COPD (chronic obstructive pulmonary disease) (Acute) Chronic pain (Acute) Dementia (Acute) Diabetes (Acute) HTN (hypertension) (Acute) Surgical History Surgical History Hx of BKA (Acute) Social History Social History Substance History: No History of Abuse Second Hand Smoke Exposure: No Smoking Status: Never smoker Tobacco Type: Cigarettes How Often Do You Have a Drink Containing Alcohol: Never Recent Travel in [place] within the Last 8 Weeks: No Recent Out of Country Travel within the Last 8 Weeks: No Immunization History Tetanus Immunization: Unsure Hx Influenza Vaccine This Season: No Exam Narrative Exam Narrative: GENERAL: Well-nourished, well-developed patient. SKIN: Focused skin assessment warm/dry. HEAD: Normocephalic. EYES: No scleral icterus. No injection or drainage. NECK: Supple, trachea midline. No JVD or lymphadenopathy. CARDIOVASCULAR: Regular rate and rhythm without murmurs, gallops, or rubs. RESPIRATORY: Breath sounds equal bilaterally. No accessory muscle use. GASTROINTESTINAL: Abdomen soft, non-tender, nondistended. MUSCULOSKELETAL: No cyanosis, or edema. AKA bilaterally. BACK: Nontender without obvious deformity. No CVA tenderness. Course Initial Documented Vital Signs Temperature 97.8 F 05/22/18 04:44 Pulse Rate 83 05/22/18 04:44 Respiratory Rate 18 05/22/18 04:44 Blood Pressure 155/80 H 05/22/18 04:44 Pulse Oximetry 99 05/22/18 04:44 Last Documented Vital Signs Temperature 97.8 F 05/22/18 04:44 Pulse Rate 64 05/22/18 08:24 Respiratory Rate 22 05/22/18 08:24 Blood Pressure 102/52 L 05/22/18 08:24 Pulse Oximetry 100 05/22/18 08:24 Medical Decision Making MDM Narrative Medical decision making narrative: 73-year-old male was brought in from local care home for seizure. Medical record from care home reported patient has history of seizure in the past. Patient is not on any seizure medication. Please refer to Dr. Dc's documentation. The patient will be admitted for evaluation of seizure. At the time of reassessment, approximately 30 minutes prior to ED arrival, the patient was resting comfortably with no acute complaint. Case discussed with Dr. Bowles for [facility]. Medical Screen Exam Complete: Yes Emergency Medical Condition: Yes Differential Diagnosis Differential Diagnosis: Differential diagnosis including seizure, tremors, electrolyte imbalance, UTI, sepsis. Lab Data Lab results reviewed: Yes I reviewed the patient's lab results. Lab results narrative: Anemia is stable LFTs are unremarkable Result diagrams: 05/22/18 06:42 05/22/18 06:42 Lab Results 05/22/18 05/22/18 Range/Units 06:42 06:42 WBC 6.6 (4.0-11.0) th/mm3 RBC 3.17 L (4.50-5.90) mil/mm3 Hgb 9.3 L (13.0-17.0) gm/dL Hct 28.4 L (39.0-51.0) % MCV 89.6 (80.0-100.0) fL MCH 29.4 (27.0-34.0) pg MCHC 32.8 (32.0-36.0) % RDW 18.2 H (11.6-17.2) % Plt Count 159 (150-450) th/mm3 MPV 10.4 (7.0-11.0) fL Prelim Diff (Auto) Slide review pending Neut % (Auto) 78.1 H (16.0-70.0) % Lymph % (Auto) 17.3 (9.0-44.0) % Mcdonald % (Auto) 3.4 (0.0-8.0) % Eos % (Auto) 0.9 (0.0-4.0) % Baso % (Auto) 0.3 (0.0-2.0) % Neut # (Auto) 5.2 (1.8-7.7) th/mm3 Lymph # (Auto) 1.1 (1.0-4.8) th/mm3 Mcdonald # (Auto) 0.2 (0.0-0.9) th/mm3 Eos # (Auto) 0.1 (0.0-0.4) th/mm3 Baso # (Auto) 0.0 (0.0-0.2) th/mm3 WBC Differential . Diff Scan Auto diff confirmed Differential Comment . Ovalocytes 1+ H (None) Keratocytes Occ H (None) Sodium 142 (136-145) meq/L Potassium 3.9 (3.5-5.1) meq/L Chloride 109 H (98-107) meq/L Carbon Dioxide 25.7 (21.0-32.0) meq/L Anion Gap 7 (5-15) meq/L BUN 11 (7-18) mg/dL Creatinine 0.69 (0.60-1.30) mg/dL Estimated GFR Greater than 89 (>89) mL/min Random Glucose 184 H (74-106) mg/dL Calcium 9.0 (8.5-10.1) mg/dL Phosphorus 2.9 (2.5-4.9) mg/dL Magnesium 2.0 (1.5-2.5) mg/dL Total Bilirubin 0.2 (0.2-1.0) mg/dL AST 19 (15-37) U/L ALT 26 (12-78) U/L Alkaline Phosphatase 115 (45-117) U/L Total Protein 6.8 (6.4-8.2) g/dL Albumin 2.9 L (3.4-5.0) g/dL Imaging Data Attestation: I personally reviewed and interpreted this imaging study as follows : Radiologist's impression: Head CT 05/22/18 07:21 CONCLUSION: 1. Stable noncontrast head CT. No acute intracranial abnormality is identified. 2. Stable right frontal and temporal lobe encephalomalacia. Other chronic changes include generalized atrophy and chronic periventricular white matter change characteristic of chronic microvascular ischemia. . Discharge Plan Discharge Disposition Patient Disposition: 30 Still Patient Physicians Team ED Provider: Jose Dc Primary Care Provider: UNKNOWN, Attending Provider: Betty Bowles Other Providers: Jace Clinton Discharge Interventions Interventions: Vital Signs Last Done: 05/22/18 08:24 Status ED Status: Admitted Observation Patient
[2018-05-22] MEDS: Sod Chloride 0.9% Inj 1,000 ML IV.CONT SCH ×2 (06:46→14:51)
[2018-05-22 06:56] LABS: Baso % (Auto) 0.3 % (0.0-2.0); Eos # (Auto) 0.1 th/mm3 (0.0-0.4); Eos % (Auto) 0.9 % (0.0-4.0); Hematocrit 28.4 % (39.0-51.0); Hemoglobin 9.3 gm/dL (13.0-17.0); Lymph # (Auto) 1.1 th/mm3 (1.0-4.8); Lymph % (Auto) 17.3 % (9.0-44.0); Mean Corpuscular HGB Conc 32.8 % (32.0-36.0); Mean Corpuscular Hemoglobin 29.4 pg (27.0-34.0); Mean Corpuscular Volume 89.6 fL (80.0-100.0); Mean Platelet Volume 10.4 fL (7.0-11.0); Mono # (Auto) 0.2 th/mm3 (0.0-0.9); Mono % (Auto) 3.4 % (0.0-8.0); Neut # (Auto) 5.2 th/mm3 (1.8-7.7); Neut % (Auto) 78.1 % (16.0-70.0); Platelet Count 159 th/mm3 (150-450); Red Blood Count 3.17 mil/mm3 (4.50-5.90); Red Cell Distribution Width 18.2 % (11.6-17.2); White Blood Count 6.6 th/mm3 (4.0-11.0)
[2018-05-22 07:18] LABS: Alanine Aminotransferase 26 U/L (12-78); Albumin 2.9 g/dL (3.4-5.0); Anion Gap 7 meq/L (5-15); Aspartate Aminotransferase 19 U/L (15-37); Blood Urea Nitrogen 11 mg/dL (7-18); Carbon Dioxide 25.7 meq/L (21.0-32.0); Chloride 109 meq/L (98-107); Glomerular Filtration Rate Greater Than 89 mL/min (>89); Glucose,Random 184 mg/dL (74-106); Potassium 3.9 meq/L (3.5-5.1); Sodium 142 meq/L (136-145)
[2018-05-22 07:20] LABS: Alkaline Phosphatase 115 U/L (45-117); Phosphorus 2.9 mg/dL (2.5-4.9); Total Protein 6.8 g/dL (6.4-8.2)
[2018-05-22 07:30] LABS: Ovalocytes 1+
--- NOTE | 2018-05-22 08:00 | CT ---
EXAM DATE: 05/22/2018 7:33 AM EDT AGE/SEX: 73 years / Male INDICATIONS: Possible seizure. CLINICAL DATA: This is the patient's initial encounter. Patient reports that signs and symptoms have been present for 1 day and indicates a pain score of 0/10. MEDICAL/SURGICAL HISTORY: Hypertension. Seizures. . Orthopedic surgery. RADIATION DOSE: 42.12 CTDI (mGy) COMPARISON: [facility], CT HEAD W/O CONTRAST, 04/09/2018. [facility], CT BRAIN W/O CONTRAST, 08/26/2015. . TECHNIQUE: CT of the head without contrast. Using automated exposure control and adjustment of the mA and/or kV according to patient size, radiation dose was kept as low as reasonably achievable to ob tain optimal diagnostic quality images. DICOM format image data is available electronically for revi ew and comparison. FINDINGS: Cerebrum: Examination quality is degraded by patient motion. There is generalized cerebral atrophy s imilar to the prior examination. Ventricles are normal in size given the degree of atrophy. There is mild periventricular white matter low-attenuation. Stable right frontal and temporal lobe encephaloma lacia is again appreciated. No midline shift, mass lesion, hemorrhage or acute infarction. No extraa xial fluid collections are seen. Posterior Fossa: The cerebellum and brainstem demonstrate no acute abnormality. The 4th ventricle is midline. The cerebellopontine angle is within normal limits. Extracranial: The visualized sinuses are clear. Skull: The calvaria is intact. No skull fracture. CONCLUSION: 1. Stable noncontrast head CT. No acute intracranial abnormality is identified. 2. Stable right frontal and temporal lobe encephalomalacia. Other chronic changes include generalize d atrophy and chronic periventricular white matter change characteristic of chronic microvascular isc hemia. . Electronically signed by: Arnaud Ambrosio MD 05/22/2018 7:59 AM EDT
[2018-05-22] MEDS ORDERED: Bisacodyl 10 MG Supp RECTAL PRN (09:36)
[2018-05-22] MEDS ORDERED: Acetaminophen 325 MG Tablet PO PRN (09:36)
[2018-05-22] MEDS ORDERED: Sodium Chloride 0.9% 2 ML Flush PRN IV.FLUSH (09:49)
[2018-05-22] MEDS ORDERED: hydrALAZINE 25 MG Tablet PO PRN (10:28)
[2018-05-22] MEDS ORDERED: FENTANYL T-DERMAL SCH (10:30)
--- NOTE | 2018-05-22 10:34 | P.HPIM ---
History of Present Illness Service: [facility] Primary Care Physician: UNKNOWN Chief Complaint: seizure History of Present Illness: This is a 73-year-old AAM with PMHx of DM, HTN, Seizure Disorder, and Dementia was brought in from his shelter for a reported seizure, this occurred at 3: 14am. Per documents from [place] patient had a history of seizure in the past but is not on meds. Patient has history of encephalopathy and is a poor historian. 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 Patient is wearing a diaper and cannot tell me if he is incontinent at baseline, reports that he gets full care at his RETIREMENT. Per records , at the time of the incident his VS were stable and he was afebrile. Patient is upset that he is at the hospital and does not want to answer further questions. Patient states that he is blind. No recent trauma or injuries. - Diagnosis (1) Hypertension (2) Diabetes (3) Chronic pain (4) Seizure disorder (5) Encephalopathy (6) Legally blind (7) Anemia Review of Systems All other systems reviewed negative except as stated [facility] - Medical History Medical History: Medical History (Last Updated 05/22/18 @ 10:21 by Betty Bowles MD) Constipation (Acute) Anemia COPD (chronic obstructive pulmonary disease) Chronic pain Dementia Diabetes HTN (hypertension) - Surgical History Surgical History: Surgical History (Last Updated 05/22/18 @ 10:19 by Betty Bowles MD) Hx of BKA - Social History I have reviewed the patient's Social History: Yes - Tobacco History Second Hand Smoke Exposure: No Smoking Status: Never smoker Tobacco Type: Cigarettes - Alcohol History How Often Do You Have a Drink Containing Alcohol: Never - Substance Use History Substance History: No History of Abuse (lives in [facility]) - Travel History Recent Travel in the [facility] Within the Last 8 Weeks: No Recent Travel Out of the Country Within the Last 8 Weeks: No - Immunization History Tetanus Immunization: Unsure Hx Influenza Vaccine This Season: No Medications and Allergies Active Medications: Active Medications Acetaminophen (Tylenol) 650 mg PO Q4H PRN PRN Reason: Temp > 100.4 Al Hydroxide/Mg Hydroxide (Milk Of Magnesia Liq) 30 ml PO Q12H PRN PRN Reason: Mild Constipation Bisacodyl (Dulcolax Supp) 10 mg RECTAL DAILY PRN PRN Reason: SEVERE CONSITIPATION Sodium Chloride (Ns Inj) 1,000 mls @ 125 mls/hr IV.CONT .Q8H [facility] Last Admin: 05/22/18 06:46 Dose: 125 mls/hr Lactulose (Lactulose Liq) 30 ml PO DAILY PRN PRN Reason: SEVERE CONSITIPATION Ondansetron HCl (Zofran Inj) 4 mg IV.PUSH Q6H PRN PRN Reason: NAUSEA OR VOMITING Senna/Docusate Sodium (Christina-Colace) 1 tab PO BID [facility] Sennosides (Senokot) 17.2 mg PO Q12H PRN PRN Reason: Moderate Constipation Sodium Chloride (Ns Flush) 2 ml IV.FLUSH BID [facility] Sodium Chloride (Ns Flush) 2 ml IV.FLUSH PRN PRN PRN Reason: FLUSH AFTER USING IV ACCESS Allergies Allergy/AdvReac Type Severity Reaction Status Date / Time No Known Allergies Allergy Verified 05/22/18 04:47 Home Medications Medication Instructions Recorded Confirmed Type fentanyl 1 patch TRANSDERMAL Q72H 05/22/18 05/22/18 History gabapentin 300 mg PO BID 05/22/18 05/22/18 History Exam Vital signs: Vital Signs 05/22/18 04:44 05/22/18 06:47 05/22/18 08:24 Temperature 97.8 F Pulse Rate 83 64 Respiratory Rate 18 22 Blood Pressure 155/80 H 102/52 L Pulse Oximetry 99 99 100 Intake & Output 05/21/18 05/22/18 05/22/18 18:59 06:59 18:59 Weight 72.575 kg Narrative: GENERAL: thin AAM, in NAD, patient is not cooperative with exam, refuses to open eyes for pupil exam SKIN: Warm and dry. HEAD: Normocephalic. EYES: refuses to open eyes, states that he is blind and wants to be left alone NECK: Supple, trachea midline. No JVD or lymphadenopathy. CARDIOVASCULAR: Regular rate and rhythm without murmurs, gallops, or rubs. RESPIRATORY: Breath sounds equal bilaterally. No accessory muscle use. GASTROINTESTINAL: Abdomen soft, non-tender, nondistended. MUSCULOSKELETAL/EXTREMITIES: Bilateral BKA, stumps well healed. No cyanosis, or edema. BACK: Nontender without obvious deformity. No CVA tenderness. Results - Labs CBC & Chem 7: 05/22/18 06:42 05/22/18 06:42 Labs: Short CBC 05/22/18 Range/Units 06:42 WBC 6.6 (4.0-11.0) th/mm3 Hgb 9.3 L (13.0-17.0) gm/dL Hct 28.4 L (39.0-51.0) % Plt Count 159 (150-450) th/mm3 BMP 05/22/18 06:42 Sodium 142 Potassium 3.9 Chloride 109 H Carbon Dioxide 25.7 BUN 11 Creatinine 0.69 Calcium 9.0 Liver Function 05/22/18 Range/Units 06:42 Total Bilirubin 0.2 (0.2-1.0) mg/dL AST 19 (15-37) U/L ALT 26 (12-78) U/L Alkaline Phosphatase 115 (45-117) U/L Albumin 2.9 L (3.4-5.0) g/dL - Imaging Impressions Head CT 05/22/18 07:21 CONCLUSION: 1. Stable noncontrast head CT. No acute intracranial abnormality is identified. 2. Stable right frontal and temporal lobe encephalomalacia. Other chronic changes include generalized atrophy and chronic periventricular white matter change characteristic of chronic microvascular ischemia. . Caprini VTE Risk Assessment Caprini VTE Risk Assessment: No/Low Risk (score <= 1) Caprini Risk Assessment Model: Point Value = 1 Point Value = 2 Point Value = 3 Point Value = 5 Age 41-60 Minor surgery BMI > 25 kg/m2 Swollen legs Varicose veins or History of unexplained or recurrent spontaneous Oral contraceptives or hormone replacement Sepsis (< 1 month) Serious lung disease, including pneumonia (< 1 month) Abnormal pulmonary function Acute myocardial infarction Congestive heart failure (< 1 month) History of inflammatory bowel disease Medical patient at bed rest Age 61-74 Arthroscopic surgery Major open surgery (> 45 min) Laparoscopic surgery (> 45 min) Malignancy Confined to bed (> 72 hours) Immobilizing plaster cast Central venous access Age >= 75 History of VTE Family history of VTE Factor V Leiden Prothrombin [id number] Lupus anticoagulant Anticardiolipin antibodies Elevated serum homocysteine Heparin-induced thrombocytopenia Other congenital or acquired thrombophilia Stroke (< 1 month) Elective arthroplasty Hip, pelvis, or leg fracture Acute spinal cord injury (< 1 month) Prophylaxis Regimen: Total Risk Factor Score Risk Level Prophylaxis Regimen 0-1 Low Early ambulation 2 Moderate Order ONE of the following: *Sequential Compression Device (SCD) *Heparin 5000 units SQ BID 3-4 Higher Order ONE of the following medications: *Heparin 5000 units SQ TID *Enoxaparin/Lovenox 40 mg SQ daily (WT < 150 kg, CrCl > 30 mL/min) *Enoxaparin/Lovenox 30 mg SQ daily (WT < 150 kg, CrCl > 10-29 mL/min) *Enoxaparin/Lovenox 30 mg SQ BID (WT < 150 kg, CrCl > 30 mL/min) AND/OR *Sequential Compression Device (SCD) 5 or more Highest Order ONE of the following medications: *Heparin 5000 units SQ TID (Preferred with Epidurals) *Enoxaparin/Lovenox 40 mg SQ daily (WT < 150 kg, CrCl > 30 mL/min) *Enoxaparin/Lovenox 30 mg SQ daily (WT < 150 kg, CrCl > 10-29 mL/min) *Enoxaparin/Lovenox 30 mg SQ BID (WT < 150 kg, CrCl > 30 mL/min) AND *Sequential Compression Device (SCD) Assessment and Plan - Assessment (1) Hypertension Code(s): I10 - Essential (primary) hypertension Status: Chronic (2) Diabetes Code(s): E11.9 - Type 2 diabetes mellitus without complications Status: Chronic (3) Chronic pain Code(s): G89.29 - Other chronic pain Status: Chronic (4) Seizure disorder Code(s): G40.909 - Epilepsy, unspecified, not intractable, without status epilepticus Status: Chronic (5) Encephalopathy Code(s): G93.40 - Encephalopathy, unspecified Status: Chronic (6) Legally blind Code(s): H54.8 - Legal blindness, as defined in [place] Status: Chronic (7) Anemia Code(s): D64.9 - Anemia, unspecified Status: Chronic - Plan This is a 73-year-old AAM with PMHx of DM, HTN, Seizure Disorder, and Dementia was brought in from his shelter for a reported seizure, not on Seizure medications, admitted for IP evaluation, HD#1 1. Seizure Disorder/Encephalopathy/Hx of Dementia -Unsure baseline, AAOx3 -Per [facility] documents patient has a seizure disorder -Patient denies history, and is not on medications -Per [facility] documentation seizure lasted 2 minutes this morning, unsure incontinence with incident -We will get EEG and neuro consult -Ativan as needed for seizure activity if noted - Will get STAT U/A and CXR to R/O infection although unlikey, nml exam, afebrile, normal WBC count CT HEADCONCLUSION: 1. Stable noncontrast head CT. No acute intracranial abnormality is identified. 2. Stable right frontal and temporal lobe encephalomalacia. Other chronic changes include generalized atrophy and chronic periventricular white matter change characteristic of chronic microvascular ischemia. 2. Diabetes Mellitus, type 2 -Not on meds per [facility] records -Hemoglobin A1c 7.2 on 05/20 per records of [facility] -We will check blood sugars before meals/at bedtime with sliding scale insulin as needed 3. HTN -stable, cont. to monitor -continue home Amlodipine and Clonidine PRN 4. Anemia -Hemoglobin 9.3 on admission from 8.6 on 927 per [facility] records -We will get iron panel and continue ferrous sulfate 5. Status post BKA x2: Noted, per patient not due to DM, likely PVD? 6. COPD -Not on meds at home -DuoNeb's as needed while inpatient 7. Chronic pain -Continue home fentanyl patch and Gabapentin 8. DVT prophylaxis: Pending MRI results (cannot do SCD's due to BKA) 9. Dispo: Vital signs and labs stable, patient AAO x3, awaiting EEG results and Neuro recommendations Code Status: full Discussed Condition With: patient, RN (7) Anemia Qualifiers:
[2018-05-22] MEDS ORDERED: Dextrose 50% in Water 50 ML Vial IV.PUSH PRN (10:37)
--- NOTE | 2018-05-22 11:27 | XR ---
EXAM DATE: 05/22/2018 12:00 AM EDT AGE/SEX: 73 years / Male INDICATIONS: . Shortness of breath. CLINICAL DATA: This is the patient's initial encounter. Patient reports that signs and symptoms have been present for 1 day and indicates a pain score of 0/10. MEDICAL/SURGICAL HISTORY: . Hypertension. Seizures. B.B.'s in chest. . Orthopedic surgery. COMPARISON: [place], CHEST 1V SINGLE AP, 04/09/2018. . FINDINGS: Frontal and lateral views of the chest demonstrate a normal-sized cardiac silhouette. No pleural effu ana, airspace consolidation, or pneumothorax is identified. The bones and soft tissues demonstrate n o acute abnormality. There are stable metallic foreign bodies overlying the chest. Severe calcificati on is visualized in the region of the left anterior descending coronary artery. Stable ossification i s present at the right coracoclavicular ligament region. CONCLUSION: No acute cardiopulmonary abnormality is identified. Electronically signed by: Arnaud Ambrosio MD 05/22/2018 11:26 AM EDT
[2018-05-22 11:28] LABS: % Iron Saturation 36.7 % (20-50)
[2018-05-22] MEDS: Gabapentin 300 MG Capsule PO SCH ×2 (11:31→21:01)
[2018-05-22] MEDS: amLODIPine 10 MG Tablet PO SCH (11:31)
[2018-05-22] MEDS: Ferrous Sulfate 325 MG Tablet PO SCH ×2 (11:31→21:01)
[2018-05-22] MEDS: Insulin NovoLIN Regular Correctional Sugar Inj SQ SCH ×3 (11:49→22:54)
[2018-05-22] MEDS: levETIRAcetam 500 MG Tablet PO SCH ×2 (12:26→21:01)
[2018-05-22] MEDS ORDERED: Gadobutrol PF 7.5 MMOL/7.5 ML Vial (for RAD) IV.SIG ONE (13:03)
--- NOTE | 2018-05-22 13:03 | ECG ---
Date Performed: 05/22/2018 Time Performed: 08:53:43 PTAGE: 73 years EKG: Marked baseline artifact Sinus rhythm INCOMPLETE RIGHT BUNDLE BRANCH BLOCK LEFT ANTERIOR FASCICULAR BLOCK ABNORMAL ECG Within the constrai nts of artifact, no definite change. NO PREVIOUS TRACING DOCTOR: Eddie Hahn Interpretating Date/Time 05/22/2018 13:01:30
--- NOTE | 2018-05-22 13:27 | MR ---
EXAM DATE: 05/22/2018 12:51 PM EDT AGE/SEX: 73 years / Male INDICATIONS: Seizures. CLINICAL DATA: This is the patient's initial encounter. Patient reports that signs and symptoms have been present for 1 day and indicates a pain score of 0/10. MEDICAL/SURGICAL HISTORY: Diabetes mellitus type II. Hypertension. Seizures. . Bilateral belo w knee amputation. COMPARISON: C, CT HEAD W/O CONTRAST, 05/22/2018. C, CT HEAD W/O CONTRAST, 04/09/2018. C, CT BRAIN W/O CONTRAST, 08/26/2015. . TECHNIQUE: Multiplanar, multisequence examination of the brain was performed without and with 7cc ml Gadavist (gadobutrol) contrast as a single exam dose. FINDINGS: Cerebrum: There is moderate generalized atrophy. Ventricular system is prominent but within the rang e of normal given the degree of atrophy. There is stable partially cystic encephalomalacia involving the right frontal and temporal lobes. No midline shift, hemorrhage or acute infarction. There is a extra-axial mass in the right frontal mid convexity measuring 2.7 x 1.5 cm. It appears dural based an d may be associated with calvarial changes. A mineralized lesion [facility] and it measured approximately 2.3 x 1.1 cm at that time. No extraaxial fluid c ollections are seen. The pituitary gland and suprasellar cistern are normal in configuration. White Matter: There is moderate periventricular and subcortical white matter signal change bilateral ly. Posterior Fossa: The cerebellum and brainstem demonstrate no acute abnormality. The 4th ventricle is midline. The cerebellopontine angle is within normal limits. The cerebellar tonsils are normal in p osition. There is a punctate area of susceptibility artifact in the right cerebellum. Diffusion Imaging: No areas of restricted diffusion are seen. Extracranial: The visualized sinuses are clear. Post contrast: There is enhancement of the extra-axial mass in the right frontal mid convexity. CONCLUSION: 1. No acute abnormality is identified to explain the clinical symptoms. Chronic changes include gene ralized atrophy and moderate severity chronic white matter changes. Additionally, there is stable sev ere partially cystic encephalomalacia of the right frontal and temporal lobes. 2. There is a chronic enhancing extra-axial mass in the right frontal mid convexity measuring approx imately 2.7 x 1.5 cm. Features favor that this represents a meningioma and a mineralized lesion was p resent in this location on the August 2015 examination. It measured 2.3 x 1.1 cm at that time indica ting little change in size. It is not associated with any significant local mass effect. Electronically signed by: Arnaud Ambrosio MD 05/22/2018 1:26 PM EDT
--- NOTE | 2018-05-22 13:37 | MB ---
cc: Jace Turner MD DATE: 05/22/2018 HISTORY OF PRESENT ILLNESS: This 73-year-old man came in to [facility] with reported seizures. The [facility] said he had a seizure last night, has a history of seizures and encephalopathy. PAST MEDICAL HISTORY: Constipation, anemia, COPD, chronic pain, dementia, diabetes, hypertension, bilateral knee amputations, what looks like probable ulnar neuropathy. MEDICATIONS: At the [facility], he is on fentanyl patch, hydralazine, gabapentin 300 b.i.d., clonidine, amlodipine, Tylenol. No seizure medications at that time. Here, he was kept on the gabapentin. The [facility] sheet notes some anxiety, peripheral vascular disease, hypertension, polyneuropathy, alcohol dependence, legal blindness, and " unspecified convulsions." Some labs from the [facility] on 05/20/2018 showed a normal BMP, LFTs. LDL cholesterol was 81. CBC showed hematocrit of 36, platelet count of 154, hemoglobin A1c of 7.2. I do not see any other mention in the records from the [facility] for seizures nor has he ever been seen by Neurology here. He denied any history of seizures to me, although he has some dementia and cannot tell me where he is. Although he said he was at [place] in bed, he could not tell me the year. Could not or would not. He tends to be a little bit obstinate in his mood. PHYSICAL EXAMINATION: VITAL SIGNS: Afebrile 155/80 to 102/52. There are no carotid bruits. HEART: Regular rate and rhythm. I did not detect a murmur. HEENT: He is legally blind. Face is symmetric. Tongue was midline. EXTREMITIES: Normal strength in bilateral upper extremities in the triceps and deltoids below-knee and bilaterally. NEUROLOGIC: He is awake and alert. Speech is fluent. He is not aphasic. LABORATORY DATA: CBC shows hematocrit of 28, otherwise normal. Basic metabolic profile was normal. LFTs normal. Albumin 2.6. He had a CAT scan of his brain done yesterday. He has stable right frontal and temporal lobe encephalomalacia. Review of the films: It is a very poor quality study. He moved all over the place, but he does have the right frontal lobe with significant encephalomalacia as does the right anterior temporal lobe, and he has some prominent ventricles also. Considering his CAT scan results, I would not doubt if he had a seizure. He certainly has significant brain damage on the right side in the past. We will check a little bit of blood work on him, put him on Keppra 500 b.i.d., and get an MRI and EEG if he will cooperate. He could be discharged later today back to the [facility]. I would also check a UA on him to make sure that has been checked before he gets discharged. MD OSMAR Lebron/morris , 12:15 PM , 12:24 PM
--- NOTE | 2018-05-22 14:02 | MG ---
cc: Jace Turner MD ELECTROENCEPHALOGRAM Right frontotemporal encephalomalacia with seizures, 7 Hz diffuse rhythm is noted. There were some phase reversing sharp waves over the right temporal and parietal head region seen at the beginning of the recording. No prolonged seizure activity is noted, some diffuse 5 Hz slowing is at times seen. Right frontal small sharps are also noted throughout the recording. Photic stimulation is performed without significant posterior driving. IMPRESSION: Some diffuse slowing consistent with a mild diffuse encephalopathy and some superimposed right frontotemporoparietal sharps, consistent with a seizure focus there, but no prolonged seizure is noted. The patient has been started on Keppra after this EEG was done. Jace Turner MD DJM/ , 01:46 PM , 01:51 PM
[2018-05-22 16:36] LABS: Bilirubin,Urine Negative (Negative); Clarity,Urine Clear (Clear); Color,Urine Straw (Yellw/Straw); Glucose,Urine (UA) Negative (Negative); Leukocyte Esterase,Urine Negative (Negative); Mucus,Urine Few /lpf (Occasional); Nitrite,Urine Negative (Negative); Specific Gravity,Urine 1.008 (1.002-1.035); Squamous Epithelial Cell,Urine 1 /hpf (0-5)
[2018-05-22] MEDS: Senna/Docusate Sodium 8.6/50 MG Tablet PO SCH (21:01)
[2018-05-22] MEDS: Sodium Chloride 0.9% 2 ML Flush BID IV.FLUSH SCH (22:55)
[2018-05-23] MEDS: Sod Chloride 0.9% Inj 1,000 ML IV.CONT SCH ×2 (00:58→08:04)
[2018-05-23] MEDS: Insulin NovoLIN Regular Correctional Sugar Inj SQ SCH ×2 (03:08→10:00)
[2018-05-23 05:30] LABS: Baso % (Auto) 0.3 % (0.0-2.0); Eos # (Auto) 0.1 th/mm3 (0.0-0.4); Eos % (Auto) 2.1 % (0.0-4.0); Hemoglobin 8.7 gm/dL (13.0-17.0); Lymph # (Auto) 1.6 th/mm3 (1.0-4.8); Lymph % (Auto) 28.1 % (9.0-44.0); Mean Corpuscular HGB Conc 33.4 % (32.0-36.0); Mean Corpuscular Hemoglobin 29.5 pg (27.0-34.0); Mean Corpuscular Volume 88.4 fL (80.0-100.0); Mean Platelet Volume 11.1 fL (7.0-11.0); Mono # (Auto) 0.3 th/mm3 (0.0-0.9); Neut # (Auto) 3.7 th/mm3 (1.8-7.7); Neut % (Auto) 64.5 % (16.0-70.0); Platelet Count 166 th/mm3 (150-450); Red Blood Count 2.94 mil/mm3 (4.50-5.90); White Blood Count 5.7 th/mm3 (4.0-11.0)
[2018-05-23 06:03] LABS: Albumin 2.8 g/dL (3.4-5.0); Anion Gap 8 meq/L (5-15); Aspartate Aminotransferase 10 U/L (15-37); Blood Urea Nitrogen 20 mg/dL (7-18); Calcium 8.7 mg/dL (8.5-10.1); Carbon Dioxide 25.8 meq/L (21.0-32.0); Chloride 109 meq/L (98-107); Glomerular Filtration Rate Greater Than 89 mL/min (>89); Glucose,Random 164 mg/dL (74-106); Sodium 143 meq/L (136-145)
[2018-05-23 06:05] LABS: Alanine Aminotransferase 24 U/L (12-78)
[2018-05-23 06:07] LABS: Alkaline Phosphatase 105 U/L (45-117); Total Protein 6.5 g/dL (6.4-8.2)
[2018-05-23 08:05] VITALS: RESP 16
[2018-05-23] MEDS ORDERED: Insulin Detemir Inj 1,000 UNIT/10 ML Vial SQ SCH (09:00)
--- NOTE | 2018-05-23 09:14 | P.PNNEU ---
Subjective Subjective Comments: no sz overnoc Active Medications: Active Medications Acetaminophen (Tylenol) 650 mg PO Q4H PRN PRN Reason: Temp > 100.4 Al Hydroxide/Mg Hydroxide (Milk Of Magnesia Liq) 30 ml PO Q12H PRN PRN Reason: Mild Constipation Albuterol (Duoneb Neb (Prn)) 1 ampul NEB Q6HR NEB PRN PRN Reason: SHORTNESS OF BREATH Amlodipine Besylate (Norvasc) 10 mg PO DAILY [facility] Last Admin: 05/22/18 11:31 Dose: 10 mg Bisacodyl (Dulcolax Supp) 10 mg RECTAL DAILY PRN PRN Reason: SEVERE CONSITIPATION Clonidine HCl (Catapres) 0.1 mg PO Q6H PRN PRN Reason: SBP>160 MMHG Dextrose (D50w Vial) 50 ml IV.PUSH UNSCH PRN PRN Reason: PER HYPOGLYCEMIA PROTOCOL Ferrous Sulfate (Ferosul) 325 mg PO BID [facility] Last Admin: 05/22/18 21:01 Dose: 325 mg Gabapentin (Neurontin) 300 mg PO BID [facility] Last Admin: 05/22/18 21:01 Dose: 300 mg Glucagon (Glucagon Inj) 1 mg OTHER PRN PRN PRN Reason: for Hypoglycemia Protocol Hydralazine HCl (Apresoline) 25 mg PO TID PRN PRN Reason: Sys BP > 160 mmHg Sodium Chloride (Ns Inj) 1,000 mls @ 125 mls/hr IV.CONT .Q8H [facility] Last Admin: 05/23/18 08:04 Dose: 125 mls/hr Insulin Detemir (Levemir Inj) 5 unit SQ BID [facility] Insulin Human Regular (Novolin R Correctional Sugar Inj) 0 units SQ ACHS AND 3AM [place]; Protocol Last Admin: 05/23/18 03:08 Dose: 5 units Lactulose (Lactulose Liq) 30 ml PO DAILY PRN PRN Reason: SEVERE CONSITIPATION Levetiracetam (Keppra) 500 mg PO BID [facility] Last Admin: 05/22/18 21:01 Dose: 500 mg Lorazepam (Ativan Inj) 1 mg IV.PUSH Q6H PRN PRN Reason: SEIZURES Ondansetron HCl (Zofran Inj) 4 mg IV.PUSH Q6H PRN PRN Reason: NAUSEA OR VOMITING Senna/Docusate Sodium (Christina-Colace) 1 tab PO BID [facility] Last Admin: 05/22/18 21:01 Dose: Not Given Sennosides (Senokot) 17.2 mg PO Q12H PRN PRN Reason: Moderate Constipation Sodium Chloride (Ns Flush) 2 ml IV.FLUSH BID [facility] Last Admin: 05/22/18 22:55 Dose: 2 ml Sodium Chloride (Ns Flush) 2 ml IV.FLUSH PRN PRN PRN Reason: FLUSH AFTER USING IV ACCESS Allergies/Adverse Reactions: Allergies Allergy/AdvReac Type Severity Reaction Status Date / Time No Known Allergies Allergy Verified 05/22/18 04:47 Physical Exam Vital signs: Vital Signs 05/22/18 16:00 05/22/18 20:00 05/23/18 00:00 Temperature 97.8 F 99.3 F 98.7 F Pulse Rate 53 L 64 58 L Respiratory Rate 16 16 18 Blood Pressure 112/55 L 125/62 115/58 L Pulse Oximetry 100 98 05/23/18 04:00 05/23/18 08:00 Temperature 98.3 F 98.5 F Pulse Rate 61 65 Respiratory Rate 18 16 Blood Pressure 133/66 118/68 Pulse Oximetry 98 99 Intake & Output 05/22/18 05/23/18 05/23/18 18:59 06:59 18:59 Intake Total 1240 / 1240 520 / 520 1000 / 1000 Output Total 300 / 300 425 / 425 Balance 940 / 940 95 / 95 1000 / 1000 Weight 72.575 kg 72.575 kg Intake: IV 1000 / 1000 1000 / 1000 NS Inj 1,000 ML @ 125 mls/hr IV 1000 / 1000 1000 / 1000 .CONT .Q8H [facility] Rx#:[id number] Oral 240 / 240 520 / 520 Output: Urine 300 / 300 425 / 425 Narrative: awake laert moving well speech clear Objective Laboratory Results - last 24 hr 05/22/18 05/22/18 05/22/18 06:42 06:42 11:45 WBC RBC Hgb Hct MCV MCH MCHC RDW Plt Count MPV Neut % (Auto) Lymph % (Auto) [place] % (Auto) Eos % (Auto) Baso % (Auto) Neut # (Auto) Lymph # (Auto) [place] # (Auto) Eos # (Auto) Baso # (Auto) WBC Differential Differential Comment Sodium Potassium Chloride Carbon Dioxide Anion Gap BUN Creatinine Estimated GFR POC Glucose 145 H Random Glucose Calcium Iron 92 TIBC 251 % Saturation 36.7 Total Bilirubin AST ALT Alkaline Phosphatase Total Protein Albumin TSH 2.470 Urine Color Urine Clarity Urine pH Ur Specific [place] Urine Protein Urine Glucose (UA) Urine Ketones Urine Occult Blood Urine Nitrate Urine Bilirubin Urine Urobilinogen Ur Leukocyte Esterase Urine RBC Urine WBC Ur Squamous Epith Cells Urine Mucus Ur Microscopic Review 05/22/18 05/22/18 05/22/18 14:30 17:09 22:08 WBC RBC Hgb Hct MCV MCH MCHC RDW Plt Count MPV Neut % (Auto) Lymph % (Auto) [place] % (Auto) Eos % (Auto) Baso % (Auto) Neut # (Auto) Lymph # (Auto) [place] # (Auto) Eos # (Auto) Baso # (Auto) WBC Differential Differential Comment Sodium Potassium Chloride Carbon Dioxide Anion Gap BUN Creatinine Estimated GFR POC Glucose 107 261 H Random Glucose Calcium Iron TIBC % Saturation Total Bilirubin AST ALT Alkaline Phosphatase Total Protein Albumin TSH Urine Color Straw Urine Clarity Clear Urine pH 7.0 Ur Specific [place] 1.008 Urine Protein Negative Urine Glucose (UA) Negative Urine Ketones Negative Urine Occult Blood Negative Urine Nitrate Negative Urine Bilirubin Negative Urine Urobilinogen Less than 2 Ur Leukocyte Esterase Negative Urine RBC Less than 1 Urine WBC 2 Ur Squamous Epith Cells 1 Urine Mucus Few H Ur Microscopic Review Not Reportable 05/23/18 05/23/18 05/23/18 02:39 04:19 04:19 WBC 5.7 RBC 2.94 L Hgb 8.7 L Hct 26.0 L MCV 88.4 MCH 29.5 MCHC 33.4 RDW 18.0 H Plt Count 166 MPV 11.1 H Neut % (Auto) 64.5 Lymph % (Auto) 28.1 [place] % (Auto) 5.0 Eos % (Auto) 2.1 Baso % (Auto) 0.3 Neut # (Auto) 3.7 Lymph # (Auto) 1.6 [place] # (Auto) 0.3 Eos # (Auto) 0.1 Baso # (Auto) 0.0 WBC Differential . Differential Comment Auto diff final Sodium 143 Potassium 4.0 Chloride 109 H Carbon Dioxide 25.8 Anion Gap 8 BUN 20 H Creatinine 0.91 Estimated GFR Greater than 89 POC Glucose 276 H Random Glucose 164 H Calcium 8.7 Iron TIBC % Saturation Total Bilirubin 0.1 L AST 10 L ALT 24 Alkaline Phosphatase 105 Total Protein 6.5 Albumin 2.8 L TSH Urine Color Urine Clarity Urine pH Ur Specific [place] Urine Protein Urine Glucose (UA) Urine Ketones Urine Occult Blood Urine Nitrate Urine Bilirubin Urine Urobilinogen Ur Leukocyte Esterase Urine RBC Urine WBC Ur Squamous Epith Cells Urine Mucus Ur Microscopic Review Review/Management - Review/Management Plan: imp sz on keppra now mri old r frontal large and temporal encephalomalacia and eeg shows some sharps out of this area labs ok plan keprra draw b12 level and can dc neurowise and fu office could benefit in future from antidep for mood?
[2018-05-23 10:03] LABS: % Iron Saturation 17.9 % (20-50)
[2018-05-23] MEDS: Ferrous Sulfate 325 MG Tablet PO SCH (10:08)
[2018-05-23] MEDS: levETIRAcetam 500 MG Tablet PO SCH (10:08)
[2018-05-23] MEDS: Gabapentin 300 MG Capsule PO SCH (10:08)
[2018-05-23] MEDS: amLODIPine 10 MG Tablet PO SCH (10:08)
[2018-05-23] MEDS: Sodium Chloride 0.9% 2 ML Flush BID IV.FLUSH SCH (11:07)
[2018-05-23] MEDS: Senna/Docusate Sodium 8.6/50 MG Tablet PO SCH (11:07)
--- NOTE | 2018-05-23 11:29 | P.PN ---
Subjective Interval history: Follow-up on patient with seizure. Patient seen and examined. Patient denies any complaints. Wants to go back to the group home today. He denies any headache, vision changes or dizziness. Denies any chest pain or shortness of breath. Denies any nausea, vomiting or abdominal pain. No seizure activity overnight. Physical Exam Vital signs: Vital Signs 05/22/18 16:00 05/22/18 20:00 05/23/18 00:00 Temperature 97.8 F 99.3 F 98.7 F Pulse Rate 53 L 64 58 L Respiratory Rate 16 16 18 Blood Pressure 112/55 L 125/62 115/58 L Pulse Oximetry 100 98 05/23/18 04:00 05/23/18 08:00 Temperature 98.3 F 98.5 F Pulse Rate 61 65 Respiratory Rate 18 16 Blood Pressure 133/66 118/68 Pulse Oximetry 98 99 Intake & Output 05/22/18 05/23/18 05/23/18 18:59 06:59 18:59 Intake Total 1240 / 1240 520 / 520 1000 / 1000 Output Total 300 / 300 425 / 425 Balance 940 / 940 95 / 95 1000 / 1000 Weight 72.575 kg 72.575 kg Intake: IV 1000 / 1000 1000 / 1000 NS Inj 1,000 ML @ 125 mls/hr IV 1000 / 1000 1000 / 1000 .CONT .Q8H [facility] Rx#:[id number] Oral 240 / 240 520 / 520 Output: Urine 300 / 300 425 / 425 Narrative: GENERAL: WDWN elderly -[place]i male patient, in no acute distress. Awake and alert. Sitting up in bed eating breakfast. Appears comfortable. SKIN: Warm and dry. HEENT: Atraumatic. Normocephalic. Pupils equal and round. No injection or drainage. No nasal bleeding or discharge. Mucous membranes pink and moist. NECK: Trachea midline. CARDIOVASCULAR: Regular rate and rhythm. No murmur auscultated. RESPIRATORY: No accessory muscle use. Clear to auscultation. Breath sounds equal bilaterally. GASTROINTESTINAL: Abdomen soft, non-tender, nondistended. +BS. MUSCULOSKELETAL: Status post bilateral BKA's. No edema noted. NEUROLOGICAL: Awake and alert. No obvious cranial nerve deficits. Able to move all extremities spontaneously. No focal neurologic findings appreciated. Normal speech. PSYCHIATRIC: Flat affect, dismissive. Results - Labs CBC & Chem 7: 05/23/18 04:19 05/23/18 04:19 Laboratory Results - last 24 hr 05/22/18 05/22/18 05/22/18 06:42 11:45 14:30 WBC RBC Hgb Hct MCV MCH MCHC RDW Plt Count MPV Neut % (Auto) Lymph % (Auto) [place] % (Auto) Eos % (Auto) Baso % (Auto) Neut # (Auto) Lymph # (Auto) [place] # (Auto) Eos # (Auto) Baso # (Auto) WBC Differential Differential Comment Sodium Potassium Chloride Carbon Dioxide Anion Gap BUN Creatinine Estimated GFR POC Glucose 145 H Random Glucose Calcium Iron TIBC % Saturation Ferritin Total Bilirubin AST ALT Alkaline Phosphatase Total Protein Albumin Vitamin B12 TSH 2.470 Urine Color Straw Urine Clarity Clear Urine pH 7.0 Ur Specific [place] 1.008 Urine Protein Negative Urine Glucose (UA) Negative Urine Ketones Negative Urine Occult Blood Negative Urine Nitrate Negative Urine Bilirubin Negative Urine Urobilinogen Less than 2 Ur Leukocyte Esterase Negative Urine RBC Less than 1 Urine WBC 2 Ur Squamous Epith Cells 1 Urine Mucus Few H Ur Microscopic Review Not Reportable 05/22/18 05/22/18 05/23/18 17:09 22:08 02:39 WBC RBC Hgb Hct MCV MCH MCHC RDW Plt Count MPV Neut % (Auto) Lymph % (Auto) [place] % (Auto) Eos % (Auto) Baso % (Auto) Neut # (Auto) Lymph # (Auto) [place] # (Auto) Eos # (Auto) Baso # (Auto) WBC Differential Differential Comment Sodium Potassium Chloride Carbon Dioxide Anion Gap BUN Creatinine Estimated GFR POC Glucose 107 261 H 276 H Random Glucose Calcium Iron TIBC % Saturation Ferritin Total Bilirubin AST ALT Alkaline Phosphatase Total Protein Albumin Vitamin B12 TSH Urine Color Urine Clarity Urine pH Ur Specific [place] Urine Protein Urine Glucose (UA) Urine Ketones Urine Occult Blood Urine Nitrate Urine Bilirubin Urine Urobilinogen Ur Leukocyte Esterase Urine RBC Urine WBC Ur Squamous Epith Cells Urine Mucus Ur Microscopic Review 05/23/18 05/23/18 05/23/18 04:19 04:19 09:22 WBC 5.7 RBC 2.94 L Hgb 8.7 L Hct 26.0 L MCV 88.4 MCH 29.5 MCHC 33.4 RDW 18.0 H Plt Count 166 MPV 11.1 H Neut % (Auto) 64.5 Lymph % (Auto) 28.1 [place] % (Auto) 5.0 Eos % (Auto) 2.1 Baso % (Auto) 0.3 Neut # (Auto) 3.7 Lymph # (Auto) 1.6 [place] # (Auto) 0.3 Eos # (Auto) 0.1 Baso # (Auto) 0.0 WBC Differential . Differential Comment Auto diff final Sodium 143 Potassium 4.0 Chloride 109 H Carbon Dioxide 25.8 Anion Gap 8 BUN 20 H Creatinine 0.91 Estimated GFR Greater than 89 POC Glucose Random Glucose 164 H Calcium 8.7 Iron 40 L TIBC 224 L % Saturation 17.9 L Ferritin 280 Total Bilirubin 0.1 L AST 10 L ALT 24 Alkaline Phosphatase 105 Total Protein 6.5 Albumin 2.8 L Vitamin B12 440 TSH Urine Color Urine Clarity Urine pH Ur Specific [place] Urine Protein Urine Glucose (UA) Urine Ketones Urine Occult Blood Urine Nitrate Urine Bilirubin Urine Urobilinogen Ur Leukocyte Esterase Urine RBC Urine WBC Ur Squamous Epith Cells Urine Mucus Ur Microscopic Review - Imaging Impressions Head MRI 05/22/18 00:00 CONCLUSION: 1. No acute abnormality is identified to explain the clinical symptoms. Chronic changes include generalized atrophy and moderate severity chronic white matter changes. Additionally, there is stable severe partially cystic encephalomalacia of the right frontal and temporal lobes. 2. There is a chronic enhancing extra-axial mass in the right frontal mid convexity measuring approximately 2.7 x 1.5 cm. Features favor that this represents a meningioma and a mineralized lesion was present in this location on the August 2015 examination. It measured 2.3 x 1.1 cm at that time indicating little change in size. It is not associated with any significant local mass effect. 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 Stable noncontrast head CT. No acute intracranial abnormality is identified. 2. Stable right frontal and temporal lobe encephalomalacia. Other chronic changes include generalized atrophy and chronic periventricular white matter change characteristic of chronic microvascular ischemia. Per group home documents patient has a seizure disorder Patient denies history, and is not on medications Per group home documentation seizure lasted 2 minutes, unsure incontinence with incident EEG shows diffuse slowing consistent with mild encephalopathy and superimposed right frontal temporal parietal sharps consistent with seizure focus MRI shows old right frontal large and temporal encephalomalacia -Neurology following, appreciate assistance. Continue on Keppra. Cleared for discharge from neurologic standpoint. Follow-up as outpatient. Diabetes Mellitus, type 2 Not on meds per group home records Hemoglobin A1c 7.2 on 05/20 per records of group home -Blood sugars running mid 200s. Start on Levemir 5 units daily. -Continue with Accu-Cheks and insulin sliding scale HTN -stable, cont. to monitor -continue home Amlodipine and Clonidine PRN Anemia, chronic Hemoglobin 9.3 on admission from 8.6 on 927 per group home records Iron 40, TIBC 224, percent saturation 17.9, ferritin 280, B12 440 No e/o active bleeding -Continue on oral iron supplementation at discharge Status post bilateral BKA Noted, per patient not due to DM, likely PVD? COPD, not in acute exacerbation Not on meds at home -DuoNeb's as needed while inpatient -Continue to monitor respiratory status Chronic pain -Continue home fentanyl patch and Gabapentin DVT prophylaxis, mechanical prophylaxis contraindicated secondary to bilateral BKA's Discharge patient to group home Condition on discharge: stable Heart healthy, diabetic diet as tolerated Ad Carol activity Rx written: Keppra, ferrous sulfate, Levemir Follow-up with primary care physician and neurologist Dr. Turner as outpatient Code Status: FULL Discussed Condition With: patient, nursing staff, Dr. Mcguire (7) Anemia Qualifiers:
[2018-05-23 12:04] VITALS: BP 134/65; PULSE 63; TEMP 97.9; O2SAT 100
== END 2018-05-23 13:22 ==
LOC: NEDA 04:36 → NEPE 04:36 → NEPFCDU 12:32
PROVIDERS: ADMIT Hospitalist; ATTEND Hospitalist